=== PATIENT | female | born 1955 | race Caucasian/White ===

== ENCOUNTER 2016-11-04 14:56 | Observation (INO) ==
--- NOTE | 2016-11-04 15:10 | Emergency Department Note ---
Disposition Clinical Impression: Chest pain Qualifiers: Chest pain type: unspecified Qualified Code(s): R07.9 - Chest pain, unspecified TIA (transient ischemic attack) Qualifiers: Transient cerebral ischemia type: unspecified Qualified Code(s): G45.9 - Transient cerebral ischemic attack, unspecified Disposition: Admitted As Inpatient Condition: Fair Referrals: Arsenio Minaya DO [Primary Care Provider] - Forms: ED Satisfaction Letter Time of Disposition: 17:06 General Adult HPI - General Chief complaint: ED Headache Stated complaint: Headache Time Seen by Provider: 11/04/16 14:59 Source: patient, EMS Limitations: no limitations Nursing Notes Reviewed: Yes Vital Signs Reviewed: Yes - History of Present Illness HPI Narrative: 61-year-old female who was admitted with TIA-like symptoms couple weeks ago comes in with left-sided facial numbness and left-sided body numbness and chest pain and heaviness. Review of her previous MRI shows no acute findings. Those began 4 days ago. Her last known well was noon on 10/31/2016 Onset (ago): day(s) Location: chest Radiation: non-radiation Pain Scale: 10 Quality: aching, other (Pressure-like) Consistency: constant Improves with: nothing Worsens with: nothing Associated symptoms: Reports: confusion, chest pain - Related Data Home Medications Medication Instructions Recorded Confirmed Furosemide [Lasix] 20 mg PO QAM 11/15/15 10/20/16 Insulin ASPART [Novolog] 12 - 18 unit SQ TIDWM 11/15/15 10/20/16 Metformin [Glucophage] 1,000 mg PO DAILY 11/15/15 10/20/16 Albuterol Sulfate [Albuterol 2 puff IH Q4-6H PRN 09/01/16 10/20/16 Inhaler] Cholecalciferol (Vitamin D3) 1,200 unit PO DAILY 09/01/16 10/20/16 [Vitamin D3] Duloxetine HCl [Cymbalta] 60 mg PO DAILY 09/01/16 10/20/16 Insulin Glargine [Lantus] 40 unit SQ BID 09/01/16 10/20/16 Aspirin [Ecotrin] 325 mg PO DAILY 10/20/16 10/20/16 Clopidogrel Bisulfate [Plavix] 75 mg PO DAILY 10/20/16 10/20/16 Gabapentin [Neurontin] 300 mg PO TID 10/20/16 10/20/16 Previous Rx's Medication Instructions Recorded HYDROcodone/Acet 5/325 mg [Banco 1 tab PO Q4HR PRN #15 tablet 09/03/16 5-325 mg] Lisinopril [Zestril] 20 mg PO QAM #0 09/03/16 Atorvastatin [Lipitor] 40 mg PO HS #30 tablet 10/22/16 Hydrocodone/Acetaminophen [Banco 1 tab PO Q6H PRN 7 Days 10/22/16 5-325 Tablet] Allergies Allergy/AdvReac Type Severity Reaction Status Date / Time fluoxetine [From Prozac] AdvReac Gastrointestinal Verified 10/20/16 17:19 Upset naproxen [From Naprosyn] AdvReac Gastrointestinal Verified 10/20/16 17:19 Upset pioglitazone [From Actos] AdvReac Gastrointestinal Verified 10/20/16 17:19 Upset Constitutional: Denies: fever, chills, weakness, weight change Eyes: Denies: eye pain, eye discharge, vision change ENT ED: Denies: ear pain, throat pain, dental pain, hearing loss, epistaxis, congestion, dysphagia Cardiovascular: Reports: chest pain. Denies: palpitations, dyspnea on exertion , edema, syncope Respiratory: Denies: cough, dyspnea, wheezes, hemoptysis, stridor Gastrointestinal: Denies: abdominal pain, nausea, vomiting, diarrhea, constipation, hematemesis, melena, hematochezia Genitourinary: Denies: dysuria, frequency, hematuria, discharge Musculoskeletal: Denies: back pain, neck pain, arthralgia, myalgia Integumentary: Denies: rash, abrasion, lesions Neurological: Reports: numbness (Left side of her body), confusion. 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 - Social History Smoking Status: Former smoker Smokeless Tobacco Status: No Alcohol use: Reports: none Drug use: Reports: none Physical Exam - General Limitations: no limitations General appearance: alert, in no apparent distress - Head Head exam: atraumatic, normocephalic, normal inspection - Eye Eye exam: Present: normal appearance, PERRL, EOMI - ENT ENT exam: normal exam, normal oropharynx, mucous membranes moist - Neck Neck exam: Present: normal inspection, full ROM, trachea midline - Chest Chest inspection: Present: normal inspection, symmetric chest wall rise - Respiratory Respiratory exam: Present: normal lung sounds bilaterally - Cardiovascular Cardiovascular exam: Present: regular rate, normal rhythm, normal heart sounds - Abdominal Exam Abdominal exam: Present: soft, Non-Tender. Absent: tenderness, distention, guarding, rebound, rigidity - Extremities Exam Extremities exam: Present: normal inspection, full ROM. Absent: tenderness, pedal edema - Expanded Lower Extremity Exam Neurovascular/Tendon exam: Absent: motor deficit, sensory deficit, tendon deficit Gait: observed and normal - Back Exam Back exam: Present: normal inspection, full ROM. Absent: tenderness - Neurological Exam Neurological exam: Present: alert, oriented X3 - Psychiatric Psychiatric exam: Present: normal affect, normal mood - Skin Skin exam: Present: warm, dry, intact, normal color Course - Consultations Consultation #1: Discussed with Dr. Anand neurology he will see the patient in consultation. Time: 16:45 Consultation #2: Discussed with , admit. Time: 17:04 Vital Signs Temperature 97 F L 11/04/16 14:57 Pulse Rate 73 11/04/16 14:57 Respiratory Rate 18 11/04/16 14:57 Blood Pressure 143/92 11/04/16 14:57 O2 Sat by Pulse Oximetry 95 11/04/16 14:57 Temperature 97 F L 11/04/16 14:57 Pulse Rate 76 11/04/16 16:00 Respiratory Rate 16 11/04/16 16:00 Blood Pressure 139/83 11/04/16 16:00 O2 Sat by Pulse Oximetry 97 11/04/16 16:00 Oxygen Delivery Oxygen Delivery Room Air Medical Decision Making - Lab Data Lab results reviewed: Yes I reviewed the patient's lab results. Result diagrams: 11/04/16 15:22 11/04/16 15:22 Lab Results 11/04/16 11/04/16 11/04/16 Range/Units 15:22 15:22 15:22 WBC 9.3 (4.3-11.1) K/mcL RBC 5.22 H (3.82-4.97) M/mcL Hgb 15.7 H (11.5-15.4) g/dL Hct 45.6 H (35.3-44.9) % MCV 87.4 (83.0-100.0) fL MCH 30.1 (28.0-33.3) pg MCHC 34.4 (31.6-35.5) g/dL RDW 12.4 (11.5-14.5) % Plt Count 246 (140-400) K/mcL MPV 9.9 (9.4-12.4) fL Immature Gran % 0.4 (0-4) % Seg Neutrophils % 59.5 % Lymphocytes % 30.0 % Monocytes % 7.7 % Eosinophils % 2.0 % Basophils % 0.4 % Neutrophils # 5.5 (1.6-8.9) K/mcL Lymphocytes # 2.8 (0.6-4.6) K/mcL Monocytes # 0.7 (0.0-1.3) K/mcL Eosinophils # 0.2 (0.0-0.6) K/mcL Basophils # 0.0 (0.0-0.2) K/mcL PT 11.1 (9.4-12.1) Seconds INR 1.0 APTT 29.6 (26.0-36.0) Seconds Sodium 134 L (136-145) mEq/L Potassium 4.1 (3.5-4.5) mEq/L Chloride 96 L (98-109) mEq/L Carbon Dioxide 28 (19-29) mEq/L BUN 20 (7-20) mg/dL Creatinine 0.95 (0.57-1.11) mg/dL Est GFR ( Amer) > 60 (> 60) Est GFR (Non-Af Amer) 60 (> 60) BUN/Creatinine Ratio 21 (6-26) Glucose 345 H (70-99) mg/dL Calculated Osmolality 294 (280-300) Calcium 9.5 (8.6-10.8) mg/dL Troponin I (0-0.03) ng/mL 11/04/16 Range/Units 15:22 WBC (4.3-11.1) K/mcL RBC (3.82-4.97) M/mcL Hgb (11.5-15.4) g/dL Hct (35.3-44.9) % MCV (83.0-100.0) fL MCH (28.0-33.3) pg MCHC (31.6-35.5) g/dL RDW (11.5-14.5) % Plt Count (140-400) K/mcL MPV (9.4-12.4) fL Immature Gran % (0-4) % Seg Neutrophils % % Lymphocytes % % Monocytes % % Eosinophils % % Basophils % % Neutrophils # (1.6-8.9) K/mcL Lymphocytes # (0.6-4.6) K/mcL Monocytes # (0.0-1.3) K/mcL Eosinophils # (0.0-0.6) K/mcL Basophils # (0.0-0.2) K/mcL PT (9.4-12.1) Seconds INR APTT (26.0-36.0) Seconds Sodium (136-145) mEq/L Potassium (3.5-4.5) mEq/L Chloride (98-109) mEq/L Carbon Dioxide (19-29) mEq/L BUN (7-20) mg/dL Creatinine (0.57-1.11) mg/dL Est GFR ( Amer) (> 60) Est GFR (Non-Af Amer) (> 60) BUN/Creatinine Ratio (6-26) Glucose (70-99) mg/dL Calculated Osmolality (280-300) Calcium (8.6-10.8) mg/dL Troponin I 0.00 (0-0.03) ng/mL - Radiology Data Radiology results reviewed: Yes I reviewed the patient's radiology results. Head CT 11/04/16 15:04 IMPRESSION: No acute intracranial abnormality. D/ / Nicholas Ramon MD / Nicholas Ramon MD Interpreting Provider: Nicholas Ramon MD Chest X-Ray 11/04/16 15:05 IMPRESSION: No significant findings in the chest. D/ / Ez Frausto MD / Ez Frausto MD Interpreting Provider: Ez Frausto MD - EKG Data EKG #1 EKG attestation: Yes I reviewed and interpreted this EKG. EKG shows normal: sinus rhythm Rate: normal Rhythm: NSR Interpretation: no acute changes NIH Stroke Scale - Level of Consciousness LOC: Alert - LOC Questions LOC Questions: Answers both correctly - LOC Commands LOC Commands: Performs both correctly - Best Gaze Best Gaze: Normal - Visual Visual: No visual loss - Facial Palsy Facial Palsy: Normal - Motor Arms Motor Arm-Left: Drift, does NOT hit bed Motor Arm-Right: No drift for 10 seconds - Motor Legs Motor Leg-Left: No drift for 5 seconds Motor Leg-Right: No drift for 5 seconds - Limb Ataxia Limb Ataxia: Normal, No Ataxia - Sensory Sensory: Mild to moderate loss, "not as sharp" - Best Language Best Language: No aphasia - Dysarthria Dysarthria: Normal - Extinction and Inattention Extinction and Inattention: Normal - NIHSS Total Score NIHSS Total Score: 2
[2016-11-04 15:36] LABS: Basophils % 0.4 %; Eosinophils # 0.2 K/mcL (0.0-0.6); Hematocrit 45.6 % (35.3-44.9); Hemoglobin 15.7 g/dL (11.5-15.4); Immature Granulocytes % 0.4 % (0-4); Lymphocytes # 2.8 K/mcL (0.6-4.6); Mean Corpuscular HGB Conc 34.4 g/dL (31.6-35.5); Mean Corpuscular Hemoglobin 30.1 pg (28.0-33.3); Mean Corpuscular Volume 87.4 fL (83.0-100.0); Mean Platelet Volume 9.9 fL (9.4-12.4); Monocytes # 0.7 K/mcL (0.0-1.3); Monocytes % 7.7 %; Neutrophils # 5.5 K/mcL (1.6-8.9); Platelet Count 246 K/mcL (140-400); Prothrombin Time 11.1 Seconds (9.4-12.1); Red Blood Count 5.22 M/mcL (3.82-4.97); Red Cell Distribution Width 12.4 % (11.5-14.5); Segmented Neutrophils % 59.5 %
[2016-11-04 15:38] LABS: Activated Partial Thrombo Time 29.6 Seconds (26.0-36.0)
[2016-11-04 15:44] LABS: BUN/Creatinine Ratio 21 (6-26); Blood Urea Nitrogen 20 mg/dL (7-20); Calcium 9.5 mg/dL (8.6-10.8); Carbon Dioxide 28 mEq/L (19-29); Chloride 96 mEq/L (98-109); Glucose 345 mg/dL (70-99); Osmolality,Calculated 294 (280-300); Potassium 4.1 mEq/L (3.5-4.5); Sodium 134 mEq/L (136-145); eGFR For African Americans > 60 (> 60); eGFR For Non-African Americans 60 (> 60)
[2016-11-04] MEDS ORDERED: *HR* HYDROmorphone (PF) 1 MG/ML SYRINGE IVP ONE (17:25)
[2016-11-04] MEDS ORDERED: Ondansetron 4 MG/2 ML VIAL IVP ONE (17:25)
[2016-11-04] MEDS ORDERED: Acetaminophen 325 MG TABLET PO PRN (19:18)
[2016-11-04] MEDS ORDERED: Naloxone 0.4 MG/ML INJ IVP PRN (19:18)
[2016-11-04] MEDS ORDERED: D5% in Water 1,000 ML IV PRN (19:21)
[2016-11-04] MEDS ORDERED: Dextrose Gel 15 GM PO PRN ×2 (19:21)
[2016-11-04] MEDS ORDERED: *HR* Dextrose 50 % in Water (Syg) 50 ML SYRINGE IVP PRN (19:21)
[2016-11-04] MEDS: Insulin LISPRO 300 UNITS/3 ML VIAL SQ SCH (22:13)
[2016-11-04] MEDS: Insulin DETEMIR 100 UNIT/ML X5UNITS SQ SCH (22:14)
[2016-11-04] MEDS: Gabapentin 300 MG CAPSULE PO SCH (22:16)
--- NOTE | 2016-11-04 22:48 | Internal Med History&Physical ---
Date of Encounter: 11/04/16 Time of Encounter: 19:00 Assessment and Plan (1) Chest pain Current visit: Yes Status: Acute Rule out ACS. Continue telemetry monitoring and trend troponins. Chest pain could be related to emotional stress. Continue aspirin, Plavix and statin. Recent echocardiogram 2 weeks ago showed preserved ejection fraction, normal chamber sizes, mild left ventricular diastolic dysfunction, no gross valvular abnormalities. Patient also had a recent nuclear stress test done in September 2016, which is read as negative, however noted to attain only 1 metabolic equivalent with maximum HR of 65 during this study? To discuss with cardiology regarding the need for left heart catheterization. Qualifiers: Chest pain type: precordial chest pain Qualified Code(s): R07.2 - Precordial pain (2) Left-sided weakness Current visit: Yes Status: Acute Patient underwent recent stroke workup including CT head, MRI brain, MRA angiography of head and neck that was suggestive of chronic microvascular disease with no acute stroke. CT head done in the emergency room today showed no acute abnormality. Continue telemetry monitoring. Continue aspirin and Plavix and statin. Neurology has been consulted by emergency room physician, will follow-up recommendations. (3) Chronic respiratory failure Current visit: Yes Status: Chronic Patient is noted to be on chronic home oxygen due to underlying COPD. Qualifiers: Respiratory failure complication: hypoxia Qualified Code(s): J96.11 - Chronic respiratory failure with hypoxia (4) COPD (chronic obstructive pulmonary disease) Current visit: Yes Status: Chronic Not noted to be in acute exacerbation. Continue when necessary bronchodilators and supplemental oxygen. Qualifiers: COPD type: unspecified COPD Qualified Code(s): J44.9 - Chronic obstructive pulmonary disease, unspecified (5) Anxiety Current visit: Yes Status: Chronic (6) Cerebrovascular accident Current visit: Yes Status: Inactive Qualifiers: CVA mechanism: unspecified Qualified Code(s): I63.9 - Cerebral infarction, unspecified (7) Diabetes mellitus Current visit: Yes Status: Chronic Accu-Chek blood glucose monitoring with sliding scale insulin and basal insulin. Hemoglobin A1c last month is noted to be 11.5%, suggestive of uncontrolled diabetes. school vocational educator consult. Diabetic diet. 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 (8) HTN (hypertension) Current visit: Yes Status: Chronic Qualifiers: Hypertension type: essential hypertension Qualified Code(s): I10 - Essential (primary) hypertension (9) Hyperlipidemia Current visit: Yes Status: Chronic Qualifiers: Hyperlipidemia type: unspecified Qualified Code(s): E78.5 - Hyperlipidemia , unspecified (10) Obesity (BMI 30-39.9) Current visit: Yes Status: Chronic (11) Depression Current visit: Yes Status: Chronic Qualifiers: Depression Type: unspecified Qualified Code(s): F32.9 - Major depressive disorder, single episode, unspecified (12) Chronic low back pain Current visit: Yes Status: Chronic Qualifiers: Back pain laterality: midline Sciatica presence: without sciatica Qualified Code(s): M54.5 - Low back pain; G89.29 - Other chronic pain Internal Medicine - H&P: HPI Chief complaint: Chest pain, left-sided weakness Admitted From: Emergency Dept Plans for Post Hospital Care: Home History of present illness: Ms. Garay is a 61 year old female with multiple medical problems and recurrent admissions with TIA-like symptoms and chest pain, presents with complaints of retrosternal chest pain. Patient reports that her chest pain started last night , mostly in central chest, radiating to below her left breast and 2 between her shoulder blades, progressively getting worse today. She rates her pain 10/10, constant and reports being under a lot of emotional stress lately due to issues with her daughter. She also reports left-sided numbness and weakness in her hands and legs, unable to report the exact time of onset and reports continued symptoms. No slurred speech, facial droop, dysphagia. No shortness of breath, palpitations, orthopnea or leg swelling. She recently underwent nuclear stress test that was reported negative for ischemia. She has no outpatient cardiology follow-up but does have a neurology follow-up. Past Med Surg Social Fam HX - Past Medical History Medical history: COPD, CVA, diabetes, hyperlipidemia, hypertension, TIA Psychiatric history: anxiety, depression - Past Surgical History Surgical History: hip replacement (left), hysterectomy (Tubal ligation), orthopedic, other (Right arthroscopic knee surgery) - Social History Smoking Status: Former smoker (Quit smoking 10 years ago) Smokeless Tobacco Status: No Alcohol use: none (Quit alcohol 10 years ago) Drug use: none Occupational status: disabled Current living situation: Home, With Family Activity Level: Independent ambulation Recent Out of Country Travel Within the Last 8 Weeks: No Exposure or Possible Exposure to Illness During Travel: No - Family History Mother Living Status: Still Living Hx Family Cardiac Disorders: Yes Hx Family Endocrine Disorder: Yes (diabetes) Father Living Status: Hx Family Cardiac Disorders: Yes Hx Family Endocrine Disorder: Yes Internal Medicine - H&P: Meds Furosemide [Lasix] 20 mg PO QAM 11/15/15 [History] Insulin ASPART [Novolog] 12 - 18 unit SQ TIDWM 11/15/15 [History] Metformin [Glucophage] 1,000 mg PO BID 11/15/15 [History] Albuterol Sulfate [Albuterol Inhaler] 2 puff IH Q4-6H PRN 09/01/16 [History] Cholecalciferol (Vitamin D3) [Vitamin D3] 800 unit PO DAILY 09/01/16 [History] Duloxetine HCl [Cymbalta] 60 mg PO DAILY 09/01/16 [History] Insulin Glargine [Lantus] 30 unit SQ HS 09/01/16 [History] Aspirin [Ecotrin] 325 mg PO DAILY 10/20/16 [History] Clopidogrel Bisulfate [Plavix] 75 mg PO DAILY 10/20/16 [History] Gabapentin [Neurontin] 600 mg PO TID 10/20/16 [History] Acetaminophen w/Cod 300-30 mg [Tylenol w/Codeine #3] 1 tab PO Q6H PRN 11/04/16 [ History] Buspirone HCl [Buspar] 15 mg PO TID 11/04/16 [History] Escitalopram [Lexapro] 30 mg PO HS 11/04/16 [History] Insulin Glargine,Hum.rec.anlog [Lantus Solostar] 35 unit SQ QAM 11/04/16 [ History] Liraglutide [Victoza 2-Harish] 1.8 mg SQ DAILY 11/04/16 [History] Lisinopril [Zestril] 40 mg PO QAM 11/04/16 [History] Lovastatin 80 mg PO DAILY 11/04/16 [History] Methocarbamol [Robaxin] 500 mg PO Q8HR 11/04/16 [History] Omeprazole [PriLOSEC] 20 mg PO DAILY 11/04/16 [History] Trazodone HCl 100 mg PO HS 11/04/16 [History] Allergies fluoxetine [From Prozac] Adverse Reaction (Verified 10/20/16 17:19) Gastrointestinal Upset naproxen [From Naprosyn] Adverse Reaction (Verified 10/20/16 17:19) Gastrointestinal Upset pioglitazone [From Actos] Adverse Reaction (Verified 10/20/16 17:19) Gastrointestinal Upset All Systems PM: A 10-system review of systems was performed and is negative for pertinent findings except as documented above in the HPI. - Constitutional Constitutional: no chills, no fever(s), no night sweats - EENT Eyes: no change in vision, no discharge, no pain, no photophobia Ears: no ear discharge, no ear pain, no tinnitus Nose, mouth and throat: no dysphagia, no nasal discharge, no neck pain, no sore throat - Cardiovascular Cardiovascular ROS IM: chest pain, dyspnea on exertion - Respiratory Respiratory: no cough, no dyspnea, no wheezing, no excessive phlegm production - Gastrointestinal Gastrointestinal: no abdominal pain, no diarrhea, no hematemesis, no hematochezia, no melena, no nausea, no vomiting - Genitourinary Genitourinary: no change in urinary stream, no dysuria, no flank pain, no hematuria - Musculoskeletal Musculoskeletal ROS IM: no numbness, no tingling - Integumentary Integumentary IM: no rash, no unusual bruising - Neurological Neurological ROS: disequilibrium, focal weakness, paresthesias - Psychiatric Psychiatric: anxiety, depression, irritability - Hematologic/Lymphatic Hematologic/Lymphatic: no easy bruising - Constitutional Vitals: Temp Pulse Resp BP Pulse Ox 97.9 F 74 16 139/83 93 L 11/04/16 19:19 11/04/16 19:19 11/04/16 19:19 11/04/16 19:19 11/04/16 19:19 General appearance: Present: A&O X 3, answers questions appropriately - Head Head exam: Present: atraumatic, normocephalic - Neck Neck exam general surgery: Present: supple, trachea midline. Absent: lymphadenopathy - Respiratory Respiratory exam: Present: CTAB. Absent: accessory muscle use, rales, rhonchi, wheezes - Cardiovascular Cardiovascular exam: Present: RRR, +S1, +S2. Absent: diastolic murmur, gallop, rubs, systolic murmur - GI/Abdominal GI/Abdominal exam: Present: normal bowel sounds, soft, no peritoneal signs. Absent: distended, tenderness - Extremities Exam Extremities exam: Present: warm, radial pulses palpable and symetrical. Absent : calf tenderness, cyanotic, pedal edema - Neurological Exam Neurological exam: Present: CN II-XII intact, oriented X3, no focal deficits, strengths equal and symetr throughout (4/5 motor power in left upper and lower extremities). Absent: pronater drift, facial droop, speech deficit - Skin Skin exam: Present: dry, intact Internal Med - H&P Results - Labs CBC & Chem 7: 11/05/16 01:03 11/05/16 01:03 Labs: Cardiac Enzymes 11/04/16 Range/Units 20:28 Troponin I 0.00 (0-0.03) ng/mL
[2016-11-04] MEDS ORDERED: Ondansetron 4 MG/2 ML VIAL IVP PRN (23:37)
[2016-11-05 01:40] LABS: Basophils % 0.5 %; Eosinophils # 0.2 K/mcL (0.0-0.6); Eosinophils % 2.4 %; Hematocrit 45.2 % (35.3-44.9); Hemoglobin 15.1 g/dL (11.5-15.4); Immature Granulocytes % 0.5 % (0-4); Lymphocytes # 2.9 K/mcL (0.6-4.6); Mean Corpuscular HGB Conc 33.4 g/dL (31.6-35.5); Mean Corpuscular Hemoglobin 29.3 pg (28.0-33.3); Mean Corpuscular Volume 87.6 fL (83.0-100.0); Mean Platelet Volume 10.1 fL (9.4-12.4); Monocytes # 0.7 K/mcL (0.0-1.3); Monocytes % 7.9 %; Neutrophils # 4.9 K/mcL (1.6-8.9); Platelet Count 238 K/mcL (140-400); Red Blood Count 5.16 M/mcL (3.82-4.97); Red Cell Distribution Width 12.2 % (11.5-14.5); Segmented Neutrophils % 55.7 %
[2016-11-05 01:55] LABS: BUN/Creatinine Ratio 22 (6-26); Blood Urea Nitrogen 18 mg/dL (7-20); Calcium 9.6 mg/dL (8.6-10.8); Carbon Dioxide 29 mEq/L (19-29); Chloride 98 mEq/L (98-109); Chol/HDL Ratio 5.6 (0-4.9); Cholesterol 175 mg/dL (< 200); Glucose 314 mg/dL (70-99); HDL Cholesterol 31 mg/dL (40-59); LDL Cholesterol,Calculated 110 mg/dL (0-99); Osmolality,Calculated 296 (280-300); Potassium 4.4 mEq/L (3.5-4.5); Sodium 136 mEq/L (136-145); Triglycerides 171 mg/dL (< 150); eGFR For African Americans > 60 (> 60); eGFR For Non-African Americans > 60 (> 60)
[2016-11-05] MEDS: *HR* HYDROcodone/Acet 5/325 mg TABLET PO PRN (04:32)
[2016-11-05] MEDS: Gabapentin 300 MG CAPSULE PO SCH ×3 (07:50→21:13)
[2016-11-05] MEDS: Insulin LISPRO 300 UNITS/3 ML VIAL SQ SCH ×4 (07:50→21:11)
[2016-11-05] MEDS: Aspirin Enteric Coated 325 MG Tablet PO SCH (07:50)
[2016-11-05] MEDS: Insulin DETEMIR 100 UNIT/ML X5UNITS SQ SCH ×2 (07:55→21:11)
--- NOTE | 2016-11-05 09:06 | Internal Med Progress Note ---
Date of Encounter: 11/05/16 Time of Encounter: 08:45 - Assessment and plan (1) Atypical chest pain Current Visit: Yes Status: Acute (2) Depression Current Visit: Yes Status: Chronic Assessment and plan: Add remeron at the time and BuSpar to help with augmentation Qualifiers: Depression Type: unspecified Qualified Code(s): F32.9 - Major depressive disorder, single episode, unspecified (3) TIA (transient ischemic attack) Current Visit: Yes Status: Acute Assessment and plan: Neurology on board, continue aspirin Plavix and statin (4) Acute stress reaction Current Visit: No Status: Acute Assessment and plan: Need further adjustment of her psych medication follow-up as an outpatient with psychiatry monitoring of her psych medication - Time Spent With Patient 25 - 35 minutes - Subjective Interval history: Patient is still complaining of left-sided weakness and pain. Patient stated that she has had recurrent episode of left sided weakness and pain happened usually when she had an anxiety episode. Patient stated that this time is worse than last time. Patient denies any fever or chills. Patient denies any visual changes.. Patient need health care assistant was walking. Patient stated she is very stressed out lately. She is feeding the depression medication is not working for her - Constitutional Vitals: Temp Pulse Resp BP Pulse Ox 97.9 F 70 16 145/80 92 L 11/05/16 07:06 11/05/16 07:06 11/05/16 07:06 11/05/16 07:06 11/05/16 07:06 General appearance: Present: A&O X 3, answers questions appropriately - Head Head exam: Present: atraumatic, normocephalic - Eye Eye exam: Present: conjuntiva pink, sclera anicteric - Neck Neck exam general surgery: Present: supple, trachea midline. Absent: lymphadenopathy - Respiratory Respiratory exam: Present: CTAB. Absent: accessory muscle use, rales, rhonchi, wheezes - Cardiovascular Cardiovascular exam: Present: RRR, +S1, +S2. Absent: diastolic murmur, gallop, rubs, systolic murmur - GI/Abdominal GI/Abdominal exam: Present: normal bowel sounds, soft, no peritoneal signs. Absent: distended, tenderness - Extremities Exam Extremities exam: Present: warm, radial pulses palpable and symetrical. Absent : calf tenderness, cyanotic, pedal edema - Neurological Exam Neurological exam: Present: CN II-XII intact (Motor 5 out of 5 right upper and right lower extremity 4 out of 5 left upper and left lower extremities), oriented X3. Absent: pronater drift, facial droop, speech deficit - Skin Skin exam: Present: dry, intact Internal Medicine: Result - Labs CBC & Chem 7: 11/05/16 01:03 11/05/16 01:03 Labs: Short CBC 11/05/16 Range/Units 01:03 WBC 8.7 (4.3-11.1) K/mcL Hgb 15.1 (11.5-15.4) g/dL Hct 45.2 H (35.3-44.9) % Plt Count 238 (140-400) K/mcL Neutrophils # 4.9 (1.6-8.9) K/mcL BMP 11/05/16 01:03 Sodium 136 Potassium 4.4 Chloride 98 Carbon Dioxide 29 BUN 18 Creatinine 0.83 Glucose 314 H Calcium 9.6 Cardiac Enzymes 11/04/16 11/05/16 11/05/16 Range/Units 20:28 01:03 07:31 Troponin I 0.00 0.00 0.00 (0-0.03) ng/mL - ABG Interpretation ABG results: PT/INR, D-dimer PT 11.1 Seconds (9.4-12.1) 11/04/16 15:22 Consult Discharge Plan - Plan Referrals: Arsenio Minaya DO [Primary Care Provider] -
--- NOTE | 2016-11-05 09:50 | Neurology - Consult Note ---
Date of Encounter: 11/05/16 Time of Encounter: 09:48 Assessment and Plan (1) Acute stress reaction Current Visit: No Status: Acute I find no evidence here to support any evidence of acute right hemispheric dysfunction. She had a complete and comprehensive workup at the time of her last hospitalization which included MRI and MRA scans. I believe that the weakness of the left upper and left lower extremities are due to giveaway, and other mechanical and myofascial etiologies. No evidence of an acute infarct is present. I would recommend ongoing PT and OT. I would maintain aspirin and ongoing management of her stroke risk factors. I will reevaluate her at your request. The documentation in the history of HPI and plan were at least partially created by [employer] voice recognition technology by Dr. Anand. Errors in grammar, wording or other phrases may exist. If errors are found after the documentation signed, they will be addressed individually in the addendum section of this document when appropriate. History of Present Illness HPI: Ms. Garay is a 61 year old female who is being seen for neurologic consultation secondary to left upper and lower extremity weakness with pain in the chest radiating into the left upper extremity. She began by telling me that she has been under tremendous amount of stress lately. She was also admitted for this very same problem about 3 weeks or so ago and was seen by my associate Dr. Alonzo on 10/22/2016. She had a very extensive workup at that time including MRI/MRA scan of the brain which was negative for any acute infarct. Scattered white matter changes were identified. She does have stroke risk factors. CT scan of the brain was completed in the ED at the time of admission and was unrevealing. She still complains of left upper and left lower extremity pain and weakness. Past Med Surg Social Fam HX - Past Medical History Medical history: COPD, CVA, diabetes, hyperlipidemia, hypertension, TIA Psychiatric history: anxiety, depression - Past Surgical History Surgical History: hip replacement, hysterectomy - Social History Smoking Status: Former smoker Smokeless Tobacco Status: No Alcohol use: none Drug use: none - Family History Mother Living Status: Still Living Hx Family Cardiac Disorders: Yes Hx Family Endocrine Disorder: Yes (diabetes) Father Living Status: Hx Family Cardiac Disorders: Yes Hx Family Endocrine Disorder: Yes Medications and Allergies Furosemide [Lasix] 20 mg PO QAM 11/15/15 [History] Insulin ASPART [Novolog] 12 - 18 unit SQ TIDWM 11/15/15 [History] Metformin [Glucophage] 1,000 mg PO BID 11/15/15 [History] Albuterol Sulfate [Albuterol Inhaler] 2 puff IH Q4-6H PRN 09/01/16 [History] Cholecalciferol (Vitamin D3) [Vitamin D3] 800 unit PO DAILY 09/01/16 [History] Duloxetine HCl [Cymbalta] 60 mg PO DAILY 09/01/16 [History] Insulin Glargine [Lantus] 30 unit SQ HS 09/01/16 [History] Aspirin [Ecotrin] 325 mg PO DAILY 10/20/16 [History] Clopidogrel Bisulfate [Plavix] 75 mg PO DAILY 10/20/16 [History] Gabapentin [Neurontin] 600 mg PO TID 10/20/16 [History] Acetaminophen w/Cod 300-30 mg [Tylenol w/Codeine #3] 1 tab PO Q6H PRN 11/04/16 [ History] Buspirone HCl [Buspar] 15 mg PO TID 11/04/16 [History] Escitalopram [Lexapro] 30 mg PO HS 11/04/16 [History] Insulin Glargine,Hum.rec.anlog [Lantus Solostar] 35 unit SQ QAM 11/04/16 [ History] Liraglutide [Victoza 2-Harish] 1.8 mg SQ DAILY 11/04/16 [History] Lisinopril [Zestril] 40 mg PO QAM 11/04/16 [History] Lovastatin 80 mg PO DAILY 11/04/16 [History] Methocarbamol [Robaxin] 500 mg PO Q8HR 11/04/16 [History] Omeprazole [PriLOSEC] 20 mg PO DAILY 11/04/16 [History] Trazodone HCl 100 mg PO HS 11/04/16 [History] Allergies fluoxetine [From Prozac] Adverse Reaction (Verified 10/20/16 17:19) Gastrointestinal Upset naproxen [From Naprosyn] Adverse Reaction (Verified 10/20/16 17:19) Gastrointestinal Upset pioglitazone [From Actos] Adverse Reaction (Verified 10/20/16 17:19) Gastrointestinal Upset All Systems: A 10-system review of systems was performed and is negative for pertinent findings except as documented above in the HPI. Review of Systems: 10 point review of systems is consistent with the history of present illness and otherwise negative. Physical Examination - Vital Signs Vital Signs: Initial Vital Signs Temp Pulse Resp BP Pulse Ox 97 F L 73 18 143/92 95 11/04/16 14:57 11/04/16 14:57 11/04/16 14:57 11/04/16 14:57 11/04/16 14:57 - Neurologic Sensorimotor examination: other (There is decreased sensation to light touch and pinprick distally and symmetrically. No hemihypesthesia is present.) Detailed motor examination: other (She has full power of the right upper and right lower extremities. There is diffuse give way weakness of the left upper and left lower extremities. She has normal bulk and tone of all 4 extremities. No involuntary movements or atrophy are present.) Reflex and gait examination: other (Deep tendon reflexes are diminished throughout.) Mental Status Examination: awake, alert, oriented to person, oriented to place, oriented to time, follows commands appropriately, answers questions appropriately, no agnosia, no aphasia, no aproxia Cranial nerve examination: PERRL, EOMI, visual bowman intact, corneal reflexes brisk symmetrically, sensory to face intact, mastication intact, no dysarthria, hearing is intact symmetrically, soft palate elevates bilaterally upon phonation , tongue protrudes midline Cranial Nerve Exam: facial nerve palsy: 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 ), facial droop: Left Cerebellar examination: no dysmetria, performs finger to nose and heel to guajardo symmetrically without ataxia, no truncal ataxia, no difficulty with rapid alternating movements Results - Laboratory Findings CBC and BMP: 11/05/16 01:03 11/05/16 01:03 Abnormal lab findings: Abnormal lab results RBC 5.16 M/mcL (3.82-4.97) H 11/05/16 01:03 Hct 45.2 % (35.3-44.9) H 11/05/16 01:03 Glucose 314 mg/dL (70-99) H 11/05/16 01:03 POC Glucose 212 (58-89) H 11/04/16 21:19 Triglycerides 171 mg/dL (< 150) H 11/05/16 01:03 LDL Cholesterol, Calc 110 mg/dL (0-99) H 11/05/16 01:03 VLDL Cholesterol, Calc 34 mg/dL (< 31) H 11/05/16 01:03 HDL Cholesterol 31 mg/dL (40-59) L 11/05/16 01:03 Cholesterol/HDL Ratio 5.6 (0-4.9) H 11/05/16 01:03 Consult Discharge Plan - Plan Referrals: Arsenio Minaya DO [Primary Care Provider] -
[2016-11-05] MEDS: Cyanocobalamin (B-12) 1,000 MCG TABLET PO SCH (09:51)
--- NOTE | 2016-11-05 11:20 | Electrocardiograph Report ---
[facility] Test Date: 2016-11-04 Pat Name: Bina Garay Department: 105 Room: 3B45 Gender: F [employer]: JAZ : 1955 Requested By: Jemal Lane Order Number: [id number] Reading MD: Ron Hwang MD Measurements Intervals [place] Rate: 69 P: 33 MI: 141 QRS: 51 QRSD: 101 T: 82 QT: 438 QTc: 457 Interpretive Statements SINUS RHYTHM WITH SINUS ARRHYTHMIA Electronically Signed On 11-05-16 11:19:40 EST by Ron Hwang MD
[2016-11-05] MEDS: Acetaminophen 325 MG TABLET PO SCH ×2 (16:32→21:20)
--- NOTE | 2016-11-05 18:04 | Physician Discharge Referral ---
ExtendedCare Referral Info Institutional Level of Care: Skilled - Diagnosis (1) Atypical chest pain Priority: Primary Status: Acute (2) Depression Status: Chronic (3) TIA (transient ischemic attack) Priority: Primary Status: Acute (4) Acute stress reaction Priority: Primary Status: Acute (5) Left-sided muscle weakness Status: Acute - Transfer Medications Home Medications: Furosemide [Lasix] 20 mg PO QAM 11/15/15 [History] Insulin ASPART [Novolog] 12 - 18 unit SQ TIDWM 11/15/15 [History] Metformin [Glucophage] 1,000 mg PO BID 11/15/15 [History] Albuterol Sulfate [Albuterol Inhaler] 2 puff IH Q4-6H PRN 09/01/16 [History] Cholecalciferol (Vitamin D3) [Vitamin D3] 800 unit PO DAILY 09/01/16 [History] Duloxetine HCl [Cymbalta] 60 mg PO DAILY 09/01/16 [History] Insulin Glargine [Lantus] 30 unit SQ HS 09/01/16 [History] Aspirin [Ecotrin] 325 mg PO DAILY 10/20/16 [History] Clopidogrel Bisulfate [Plavix] 75 mg PO DAILY 10/20/16 [History] Gabapentin [Neurontin] 600 mg PO TID 10/20/16 [History] Acetaminophen w/Cod 300-30 mg [Tylenol w/Codeine #3] 1 tab PO Q6H PRN 11/04/16 [ History] Buspirone HCl [Buspar] 15 mg PO TID 11/04/16 [History] Escitalopram [Lexapro] 30 mg PO HS 11/04/16 [History] Insulin Glargine,Hum.rec.anlog [Lantus Solostar] 35 unit SQ QAM 11/04/16 [ History] Liraglutide [Victoza 2-Harish] 1.8 mg SQ DAILY 11/04/16 [History] Lisinopril [Zestril] 40 mg PO QAM 11/04/16 [History] Lovastatin 80 mg PO DAILY 11/04/16 [History] Methocarbamol [Robaxin] 500 mg PO Q8HR 11/04/16 [History] Omeprazole [PriLOSEC] 20 mg PO DAILY 11/04/16 [History] Trazodone HCl 100 mg PO HS 11/04/16 [History] Allergies/Adverse Reactions: Allergies fluoxetine [From Prozac] Adverse Reaction (Verified 10/20/16 17:19) Gastrointestinal Upset naproxen [From Naprosyn] Adverse Reaction (Verified 10/20/16 17:19) Gastrointestinal Upset pioglitazone [From Actos] Adverse Reaction (Verified 10/20/16 17:19) Gastrointestinal Upset - Respiratory Orders Smoking Cessation: Smoking cessation has been advised. For more information, call the [place] Tobacco Quit Line at 9-379-AYWV-NOW. - Mobility Orders Ambulate - Rehabiliation Orders Rehab Potential: Good - Diet Orders Cardiac CERTIFICATION: I certify that the transfer of the above named patient to an Extended Care Facility is necessary for the continuing treatment of the diagnosis listed. The above information is true and accurate reflection of patient's current condition. Based on staff poor social support at home . Patient is feeling more depressed with her progressive weakness Confidential - Redisclosure prohibited without a patient's written consent.
[2016-11-05] MEDS ORDERED: Mirtazapine 15 MG TABLET PO SCH (21:00)
[2016-11-06] MEDS: *HR* HYDROcodone/Acet 5/325 mg TABLET PO PRN (05:56)
[2016-11-06] MEDS: Insulin LISPRO 300 UNITS/3 ML VIAL SQ SCH ×2 (08:13→13:00)
[2016-11-06] MEDS: Aspirin Enteric Coated 325 MG Tablet PO SCH (08:13)
[2016-11-06] MEDS: Acetaminophen 325 MG TABLET PO SCH (08:13)
[2016-11-06] MEDS: Gabapentin 300 MG CAPSULE PO SCH (08:13)
[2016-11-06] MEDS: Insulin DETEMIR 100 UNIT/ML X5UNITS SQ SCH (08:15)
[2016-11-06] MEDS: Cyanocobalamin (B-12) 1,000 MCG TABLET PO SCH (08:15)
[2016-11-06 11:05] VITALS: BP 145/78
--- NOTE | 2016-11-06 12:34 | Discharge Summary ---
Date of Encounter: 11/06/16 Time of Encounter: 12:32 - Discharge Diagnosis (1) Atypical chest pain Priority: Primary Status: Acute (2) Depression Priority: Secondary Status: Chronic Qualifiers: Depression Type: unspecified Qualified Code(s): F32.9 - Major depressive disorder, single episode, unspecified (3) Acute stress reaction Priority: Primary Status: Acute (4) Left-sided weakness Priority: Primary Status: Acute - Discharge Medications Prescriptions: Acetaminophen [Tylenol] 500 mg PO BID #60 tablet Atorvastatin [Lipitor] 60 mg PO HS #30 tablet Buspirone HCl [Buspar] 7.5 mg PO BID #60 tablet Cyanocobalamin (B-12) [Vitamin B12] 1,000 mcg PO DAILY #90 tablet Duloxetine [Cymbalta] 30 mg PO DAILY #30 capsule. Ergocalciferol (VITAMIN D2) [Drisdol (50,000 Unit)] 50,000 unit PO We@0900 #20 capsule Mirtazapine [Remeron] 7.5 mg PO HS #30 tablet Home Medications: Furosemide [Lasix] 20 mg PO QAM 11/15/15 [History] Insulin ASPART [Novolog] 12 - 18 unit SQ TIDWM 11/15/15 [History] Metformin [Glucophage] 1,000 mg PO BID 11/15/15 [History] Albuterol Sulfate [Albuterol Inhaler] 2 puff IH Q4-6H PRN 09/01/16 [History] Aspirin [Ecotrin] 325 mg PO DAILY 10/20/16 [History] Clopidogrel Bisulfate [Plavix] 75 mg PO DAILY 10/20/16 [History] Gabapentin [Neurontin] 600 mg PO TID 10/20/16 [History] Acetaminophen w/Cod 300-30 mg [Tylenol w/Codeine #3] 1 tab PO Q6H PRN 11/04/16 [ History] Buspirone HCl [Buspar] 15 mg PO TID 11/04/16 [History] Insulin Glargine,Hum.rec.anlog [Lantus Solostar] 35 unit SQ QAM 11/04/16 [ History] Liraglutide [Victoza 2-Harish] 1.8 mg SQ DAILY 11/04/16 [History] Lisinopril [Zestril] 40 mg PO QAM 11/04/16 [History] Lovastatin 80 mg PO DAILY 11/04/16 [History] Methocarbamol [Robaxin] 500 mg PO Q8HR 11/04/16 [History] Omeprazole [PriLOSEC] 20 mg PO DAILY 11/04/16 [History] Acetaminophen [Tylenol] 500 mg PO BID #60 tablet 11/06/16 [Rx] Atorvastatin [Lipitor] 60 mg PO HS #30 tablet 11/06/16 [Rx] Buspirone HCl [Buspar] 7.5 mg PO BID #60 tablet 11/06/16 [Rx] Cyanocobalamin (B-12) [Vitamin B12] 1,000 mcg PO DAILY #90 tablet 11/06/16 [Rx] Duloxetine [Cymbalta] 30 mg PO DAILY #30 capsule. 11/06/16 [Rx] Ergocalciferol (VITAMIN D2) [Drisdol (50,000 Unit)] 50,000 unit PO We@0900 #20 capsule 11/06/16 [Rx] Insulin Glargine [Lantus] 40 unit SQ HS #0 vial 11/06/16 [Rx] Mirtazapine [Remeron] 7.5 mg PO HS #30 tablet 11/06/16 [Rx] Allergies/Adverse Reactions: Allergies fluoxetine [From Prozac] Adverse Reaction (Verified 10/20/16 17:19) Gastrointestinal Upset naproxen [From Naprosyn] Adverse Reaction (Verified 10/20/16 17:19) Gastrointestinal Upset pioglitazone [From Actos] Adverse Reaction (Verified 10/20/16 17:19) Gastrointestinal Upset Date of admission: 11/04/16 17:13 Primary care physician: Arsenio Minaya DO Consults: 11/04/16 19:20 Consult to Neurology [CONS] Routine Consulting Provider: Neurology [facility] Reason for Consult: Left-sided weakness Call Completed: Yes 11/05/16 06:25 Consult to Spa Technician [CONS] Routine Reason for SW Consult: Patient stated she wants to go to [facility] at discharge. 11/05/16 08:33 Consult to Occupational Therapy [CONS] Routine Comment: Evaluate, develop and implement POC Consult to Physical Therapy [CONS] Routine Comment: Evaluate, develop and implement POC Discharging clinician: Nadine Rodriguez - Patient Status Disposition: Transfer SNF Condition: Fair Overall status at discharge: patient is progressing back to baseline - Discharge Instructions Instructions: Chest Pain (DC), Diabetes Mellitus Type 2 in Adults (DC), Chronic Obstructive Pulmonary Disease (DC), Chronic Hypertension (DC), Anxiety ( DC) Follow Up With: Arsenio Minaya DO [Primary Care Provider] - (Follow up with psychiatry in 1 week ) - Diet and Activity Activity: ambulate only with your walker Diet: diabetic diet Hospital course: Ms. Garay is a 61 year old female with multiple medical problems and recurrent admissions with TIA-like symptoms and chest pain, presents with complaints of atypical chest pain. Patient reports that her chest pain started last night prior to admission, mostly in central chest, radiating to below her left breast progressively getting worse . She rates her pain 10/10 associated with left- sided weakness. Patient states that this happen usually when she goes under stress. Patient stated her left-sided weakness is worse compared to last time . Patient is feeling her current depression medication is not helping at all. She also reports left-sided numbness and weakness in her hands and legs, unable to report the exact time of onset and reports continued symptoms. No slurred speech, facial droop, dysphagia. No shortness of breath, palpitations, orthopnea or leg swelling. She recently underwent nuclear stress test that was reported negative for ischemia. She has no outpatient cardiology follow up .She was also admitted for same problem about 3 weeks or so ago and was seen by Dr. Alonzo on 10/22/2016. She had a very extensive workup at that time including MRI/MRA scan of the brain which was negative for any acute infarct. Scattered white matter changes were identified. She does have stroke risk factors. CT scan of the brain was completed in the ED at the time of admission and was unrevealing. She was complaining of left upper and left lower extremity pain and weakness. Neurology was consulted. He stated ,He cannot find any evidence to support any evidence of acute right hemispheric dysfunction. He believe that the weakness of the left upper and left lower extremities are due to giveaway, and other mechanical and myofascial etiologies. No evidence of an acute infarct is present. He recommended ongoing PT and OT. Continue aspirin, statin was increased. I had long discussion with patient about her depression medication. With her poor sleep at night remeron was added to help with her sleep ,appetite and depression in addition to BuSpar to help as an augmentation agent, medication adjusted. Patient next day status that medication is helping a lot she had a very good night's sleep she is feeling better. With her deconditioning ,Poor social support and recommendation of physical therapy patient discharged to [facility] for further rehabilitation. Chest pain resolved . Cardiac exam negative no acute EKG changes - Time Spent with Patient Total time spent providing and/or coordinating discharge services: Less than 30 minutes - Constitutional Vitals: Temp Pulse Resp BP Pulse Ox 98.1 F 74 15 145/78 94 L 11/06/16 11:03 11/06/16 11:03 11/06/16 11:03 11/06/16 11:03 11/06/16 11:03 General appearance: Present: A&O X 3, answers questions appropriately - Head Head exam: Present: atraumatic, normocephalic - Neck Neck exam general surgery: Present: supple, trachea midline. Absent: lymphadenopathy - Respiratory Respiratory exam: Present: CTAB. Absent: accessory muscle use, rales, rhonchi, wheezes - Cardiovascular Cardiovascular exam: Present: RRR, +S1, +S2. Absent: diastolic murmur, gallop, rubs, systolic murmur - Extremities Exam Extremities exam: Present: warm, radial pulses palpable and symetrical. Absent : calf tenderness, cyanotic, pedal edema - Neurological Exam Neurological exam: Present: CN II-XII intact (Weakness left upper and lower extremities 4 out of 5 other neurologic exam is unremarkable), oriented X3. Absent: pronater drift, facial droop, speech deficit
== END 2016-11-06 15:36 ==
LOC: EMEROO 14:56 → 3BNU 14:56
PROVIDERS: ADMIT Internal Medicine; ATTEND Nurse Practitioner Family

== ENCOUNTER 2017-02-25 15:40 | Observation (INO) ==
--- NOTE | 2017-02-25 16:21 | Emergency Department Note ---
Disposition Clinical Impression: Hyperglycemia Chest pain Qualifiers: Chest pain type: unspecified Qualified Code(s): R07.9 - Chest pain, unspecified Disposition: Admitted As Inpatient Condition: Fair Chest Pain HPI - General Chief Complaint: ED Chest Pain Stated Complaint: Chest Pain Time Seen by Provider: 02/25/17 15:55 Source: patient, EMS Mode of arrival: EMS Limitations: no limitations Vital Signs Reviewed: Yes Nursing Notes Reviewed: Yes - History of Present Illness HPI Narrative: 61-year-old female history of hypertension, CVA on plavix, diabetes and anxiety presents for evaluation of retrosternal chest pain. Noted to occur earlier today without exertion. Radiation into her right back. Also notes numbness in tingling down her left arm. Patient denies history of heart attacks the past. Patient states that she is under significant stress at home with her landlord. Patient reports some shortness of breath. No cough or fever. Denies any nausea or vomiting. Denies any aggravating or alleviating symptoms. Patient states that the pain started approximately 3 hours prior to arrival. Severity scale (1-10): 10 - Related Data Home Medications Medication Instructions Recorded Confirmed Furosemide [Lasix] 20 mg PO QAM 11/15/15 02/25/17 Insulin ASPART [Novolog] 12 - 18 unit SQ TIDWM 11/15/15 02/25/17 Metformin [Glucophage] 1,000 mg PO BID 11/15/15 02/25/17 Albuterol Sulfate [Albuterol 2 puff IH Q4-6H PRN 09/01/16 02/25/17 Inhaler] Aspirin [Ecotrin] 325 mg PO DAILY 10/20/16 02/25/17 Gabapentin [Neurontin] 600 mg PO TID 10/20/16 02/25/17 Liraglutide [Victoza 2-Harish] 1.8 mg SQ DAILY 11/04/16 02/25/17 Lisinopril [Zestril] 40 mg PO QAM 11/04/16 02/25/17 Budesonide/Formoterol 80/4.5 2 puff IH BIDR 02/25/17 02/25/17 [Symbicort 80/4.5] Duloxetine [Cymbalta] 60 mg PO DAILY 02/25/17 02/25/17 Insulin Glargine [Lantus] 35 unit SQ QAM 02/25/17 02/25/17 Previous Rx's Medication Instructions Recorded Atorvastatin [Lipitor] 60 mg PO HS #30 tablet 11/06/16 Insulin Glargine [Lantus] 40 unit SQ HS #0 vial 11/06/16 Allergies Allergy/AdvReac Type Severity Reaction Status Date / Time fluoxetine [From Prozac] AdvReac Gastrointestinal Verified 10/20/16 17:19 Upset naproxen [From Naprosyn] AdvReac Gastrointestinal Verified 10/20/16 17:19 Upset pioglitazone [From Actos] AdvReac Gastrointestinal Verified 10/20/16 17:19 Upset All systems ED: reviewed and negative except as stated. Constitutional: Reports: as per HPI. Denies: fever Eyes: Reports: as per HPI ENT ED: Reports: as per HPI Cardiovascular: Reports: as per HPI, chest pain. Denies: palpitations Respiratory: Reports: as per HPI Gastrointestinal: Reports: as per HPI. Denies: abdominal pain, nausea Genitourinary: Reports: as per HPI Musculoskeletal: Reports: as per HPI, back pain Integumentary: Reports: as per HPI Neurological: Reports: as per HPI, headache Psychiatric: Reports: as per HPI, anxiety Endocrine: Reports: as per HPI Hematological/Lymphatic: Reports: as per HPI Chest Pain PMH - Past Medical History Medical history: Reports: COPD, CVA, diabetes, hyperlipidemia, hypertension, TIA Surgical history: Reports: hip replacement (left), hysterectomy (Tubal ligation) , orthopedic, other (Right arthroscopic knee surgery) Psychiatric history: Reports: anxiety, depression 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 FUSER history: Reports: bilateral tubal ligation - Social History Smoking Status: Former smoker Alcohol use: Reports: none Drug use: Reports: none Physical Exam - General Limitations: no limitations General appearance: alert, in no apparent distress - Head Head exam: atraumatic, normocephalic, normal inspection - Eye Eye exam: Present: normal appearance, EOMI - ENT ENT exam: normal exam, mucous membranes moist - Neck Neck exam: Present: normal inspection, trachea midline - Chest Chest inspection: Present: normal inspection, symmetric chest wall rise - Respiratory Respiratory exam: Present: normal lung sounds bilaterally. Absent: respiratory distress - Cardiovascular Cardiovascular exam: Present: regular rate, normal rhythm - Abdominal Exam Abdominal exam: Present: soft, Non-Tender - Extremities Exam Extremities exam: Present: normal inspection. Absent: pedal edema - Back Exam Back exam: Present: normal inspection - Neurological Exam Neurological exam: Present: alert, oriented X3, CN II-XII intact - Expanded Neurological Exam Patient oriented to: Present: person, place, time Speech: Present: fluid speech Motor strength - LUE: 5/5 Motor strength - RUE: 5/5 Motor strength - LLE: 5/5 Motor strength - RLE: 5/5 - Skin Skin exam: Present: warm, dry, intact, normal color Course Course Narrative: Patient seen and examined. Patient in no acute distress. Patient does appear anxious. Patient does have a history of anxiety. Patient has not had known cardiac history. Patient will be evaluated with troponin, EKG, chest x-ray as well as basic lab work. Patient received aspirin in route via EMS. Patient also has a headache likely related to stress. Patient has a nonfocal neurologic exam. Patient does not appear to be in acute distress. Patient will get Tylenol to help with headache. - Reevaluation(s) Reevaluation #1: Patient seen and examined. Patient's chest pain was resolved with the nitroglycerin. Patient's resting more comfortably. Time: 17:21 Vital Signs Temperature 98.2 F 02/25/17 15:44 Pulse Rate 64 02/25/17 15:44 Respiratory Rate 18 02/25/17 15:44 Blood Pressure 108/76 02/25/17 15:44 O2 Sat by Pulse Oximetry 97 02/25/17 15:44 Temperature 98.2 F 02/25/17 18:53 Pulse Rate 63 02/25/17 18:53 Respiratory Rate 15 02/25/17 18:53 Blood Pressure 92/56 02/25/17 18:53 O2 Sat by Pulse Oximetry 94 02/25/17 18:53 Oxygen Delivery Oxygen Delivery Room Air Chest Pain - MDM Narrative Medical decision making narrative: 61-year-old female history of stroke, diabetes, hypertension past on Plavix presents for evaluation of chest pain. Patient states she is under a lot of stress. The patient had a concerning story with retrosternal chest pain that was nonexertional with radiation into her right back and numbness and tingling down her left arm. Patient denies having a cardiac history. Patient had a cardiac evaluation which showed an unchanged EKG and negative troponin. The patient's symptoms have been short course however and a single troponin is not sufficient to rule out cardiac disease. Patient does not have risk factors concerning for pulmonary embolism. Patient chart was reviewed and showed she had an echo in the last year which showed EF of 60-65%. Patient does not have any recent cardiac stress test. Patient would likely benefit from a stress test and further cardiac evaluation. Patient also had a stress test back in September of last year which was negative for ischemia or infarct however with the patient's current symptoms and her risk factors she would need further evaluation. - Lab Data Lab results reviewed: Yes I reviewed the patient's lab results. Result diagrams: 02/25/17 16:18 02/25/17 16:18 Lab Results 02/25/17 02/25/17 02/25/17 Range/Units 16:18 16:18 16:18 WBC 9.0 (4.3-11.1) K/mcL RBC 5.46 H (3.82-4.97) M/mcL Hgb 15.9 H (11.5-15.4) g/dL Hct 47.5 H (35.3-44.9) % MCV 87.0 (83.0-100.0) fL MCH 29.1 (28.0-33.3) pg MCHC 33.5 (31.6-35.5) g/dL RDW 13.0 (11.5-14.5) % Plt Count 324 (140-400) K/mcL MPV 9.5 (9.4-12.4) fL Immature Gran % 0.6 (0-4) % Seg Neutrophils % 56.6 % Lymphocytes % 32.5 % Monocytes % 7.7 % Eosinophils % 2.2 % Basophils % 0.4 % Neutrophils # 5.1 (1.6-8.9) K/mcL Lymphocytes # 2.9 (0.6-4.6) K/mcL Monocytes # 0.7 (0.0-1.3) K/mcL Eosinophils # 0.2 (0.0-0.6) K/mcL Basophils # 0.0 (0.0-0.2) K/mcL PT 10.7 (9.4-12.1) Seconds INR 1.0 APTT 31.3 (26.0-36.0) Seconds Sodium 134 L (136-145) mEq/L Potassium 4.3 (3.5-4.5) mEq/L Chloride 97 L (98-109) mEq/L Carbon Dioxide 28 (19-29) mEq/L BUN 15 (7-20) mg/dL Creatinine 0.87 (0.57-1.11) mg/dL Est GFR ( Amer) > 60 (> 60) Est GFR (Non-Af Amer) > 60 (> 60) BUN/Creatinine Ratio 17 (6-26) Glucose 246 H (70-99) mg/dL Calculated Osmolality 287 (280-300) Calcium 9.9 (8.6-10.8) mg/dL Troponin I (0-0.03) ng/mL B-Natriuretic Peptide (0-100) pg/mL 02/25/17 02/25/17 Range/Units 16:18 16:18 WBC (4.3-11.1) K/mcL RBC (3.82-4.97) M/mcL Hgb (11.5-15.4) g/dL Hct (35.3-44.9) % MCV (83.0-100.0) fL MCH (28.0-33.3) pg MCHC (31.6-35.5) g/dL RDW (11.5-14.5) % Plt Count (140-400) K/mcL MPV (9.4-12.4) fL Immature Gran % (0-4) % Seg Neutrophils % % Lymphocytes % % Monocytes % % Eosinophils % % Basophils % % Neutrophils # (1.6-8.9) K/mcL Lymphocytes # (0.6-4.6) K/mcL Monocytes # (0.0-1.3) K/mcL Eosinophils # (0.0-0.6) K/mcL Basophils # (0.0-0.2) K/mcL PT (9.4-12.1) Seconds INR APTT (26.0-36.0) Seconds Sodium (136-145) mEq/L Potassium (3.5-4.5) mEq/L Chloride (98-109) mEq/L Carbon Dioxide (19-29) mEq/L BUN (7-20) mg/dL Creatinine (0.57-1.11) mg/dL Est GFR ( Amer) (> 60) Est GFR (Non-Af Amer) (> 60) BUN/Creatinine Ratio (6-26) Glucose (70-99) mg/dL Calculated Osmolality (280-300) Calcium (8.6-10.8) mg/dL Troponin I 0.00 (0-0.03) ng/mL B-Natriuretic Peptide < 10 (0-100) pg/mL - Radiology Data Radiology results reviewed: Yes I reviewed the patient's radiology results. Chest X-Ray 02/25/17 15:53 IMPRESSION: Minimal left basilar opacity, favored to represent atelectasis. Superimposed pneumonia is possible. D/ / Mika Sofia MD / Mika Sofia MD Interpreting Provider: Mika Sofia MD Heart Score - Score History: Moderately Suspicious EKG: Non Specific repolarisation Disturbance Age: 45-65 Risk Factors: 1-2 risk factors Troponin: Less than normal limit HEART Score Total: 4 S.B.A.Anuj. - S.B.A.Rangel Situation: Demographics, MOA Background: Presenting Complaint Assessment: Vital Signs, Course and respsone to treatment, Patient/Family Expectation, Pertinant Lab Results Recommendation: Barrier(s) to disposition, Recommendation based on pending studies, treatments, or consults S.B.A.RGenia Report Given to: Kenna Humphrey Repor Time: 17:34 Attestation Statement - Attestation Attestation: I examined this patient and my medical decision-making was reviewed with the EDGE POLISHER/PA/Advanced Practice Nurse/Resident Physician. I agree with the documented findings, disposition and treatment plan as described except to the extent set forth below. Patient emergency department complaining of chest pain. Patient has had a few episodes over the past couple of days. She experienced today around 1 PM while she was coloring. She states it substernal. She has tingling in her left arm associated with it. There is also some radiation to the right shoulder. She has a headache and feels dizzy. Patient was admitted a few months ago for chest pain and had a negative stress test at that time. She does have hypertension, high cholesterol, and diabetes that is uncontrolled. Former smoker but quit a few years ago. On examination she is awake and alert sitting up in bed in no acute distress. Heart regular lungs clear. Plan. Concern with the patient's symptoms and risk. Admitted to medicine for further cardiac workup.
[2017-02-25 16:25] LABS: Basophils % 0.4 %; Eosinophils # 0.2 K/mcL (0.0-0.6); Eosinophils % 2.2 %; Hematocrit 47.5 % (35.3-44.9); Hemoglobin 15.9 g/dL (11.5-15.4); Immature Granulocytes % 0.6 % (0-4); Lymphocytes # 2.9 K/mcL (0.6-4.6); Lymphocytes % 32.5 %; Mean Corpuscular HGB Conc 33.5 g/dL (31.6-35.5); Mean Corpuscular Hemoglobin 29.1 pg (28.0-33.3); Mean Platelet Volume 9.5 fL (9.4-12.4); Monocytes # 0.7 K/mcL (0.0-1.3); Monocytes % 7.7 %; Neutrophils # 5.1 K/mcL (1.6-8.9); Platelet Count 324 K/mcL (140-400); Red Blood Count 5.46 M/mcL (3.82-4.97); Segmented Neutrophils % 56.6 %
[2017-02-25] MEDS ORDERED: Nitroglycerin 0.4 MG TAB.SUBL SL PRN (16:25)
[2017-02-25 16:31] LABS: Prothrombin Time 10.7 Seconds (9.4-12.1)
[2017-02-25] MEDS ORDERED: Metoclopramide 10 MG/2 ML VIAL IVP ONE (16:33)
[2017-02-25 16:34] LABS: Activated Partial Thrombo Time 31.3 Seconds (26.0-36.0)
[2017-02-25 16:38] LABS: BUN/Creatinine Ratio 17 (6-26); Blood Urea Nitrogen 15 mg/dL (7-20); Calcium 9.9 mg/dL (8.6-10.8); Carbon Dioxide 28 mEq/L (19-29); Chloride 97 mEq/L (98-109); Glucose 246 mg/dL (70-99); Osmolality,Calculated 287 (280-300); Potassium 4.3 mEq/L (3.5-4.5); Sodium 134 mEq/L (136-145); eGFR For African Americans > 60 (> 60); eGFR For Non-African Americans > 60 (> 60)
[2017-02-25] MEDS ORDERED: 0.9 % Sodium Chloride 1,000 ML IVC ONE (17:20)
[2017-02-25] MEDS ORDERED: Naloxone 0.4 MG/ML INJ IVP PRN (17:49)
[2017-02-25] MEDS ORDERED: Dextrose Gel 15 GM PO PRN ×2 (18:44)
[2017-02-25] MEDS ORDERED: D5% in Water 1,000 ML IVC PRN (18:44)
[2017-02-25] MEDS ORDERED: *HR* Dextrose 50 % in Water (Syg) 50 ML SYRINGE IVP PRN (18:44)
--- NOTE | 2017-02-25 18:51 | Internal Med History&Physical ---
<Mireya Rivers J - Last Filed: 02/25/17 19:34> Date of Encounter: 02/25/17 Time of Encounter: 18:48 Assessment and Plan (1) Chest pain Status: Acute presented with chest pain that started day of admission. Relieved with nitro in the ED. Stress test and TTE 10/2016 unremarkable. Possibly stressed related but she does have cardiac risk factors (HTN, obesity diabetes). Initial troponin negative, EKG without acute ST changes. Cont to trend troponin, monitor on tele. Consult Cardiology if troponin uptrending or sx's worsening. Cont home ASA. Qualifiers: Chest pain type: unspecified Qualified Code(s): R07.9 - Chest pain, unspecified (2) COPD (chronic obstructive pulmonary disease) Status: Chronic per hx. CXR unremarkable, no evidence of exacerbation on exam. PRN nebs Qualifiers: COPD type: unspecified COPD Qualified Code(s): J44.9 - Chronic obstructive pulmonary disease, unspecified (3) Diabetes mellitus Status: Chronic per hx. Control unknown. Cont home long acting, hold oral hypoglycemic. Add SSI while inpatient. Monitor blood sugar and titrate PRN Qualifiers: Diabetes mellitus type: type 2 Diabetes mellitus complication status: with hyperglycemia Diabetes mellitus tank terminal gauger insulin use: with detention use Qualified Code(s): E11.65 - Type 2 diabetes mellitus with hyperglycemia; Z79.4 - senior living (current) use of insulin (4) Cerebrovascular accident Status: Inactive per hx. With residual left sided mild diplopia. Cont home Plavix, ASA, statin Qualifiers: CVA mechanism: unspecified Qualified Code(s): I63.9 - Cerebral infarction, unspecified (5) HTN (hypertension) Status: Chronic per hx. BP controlled. Cont home BP medications. Monitor BP and titrate PRN Qualifiers: Hypertension type: essential hypertension Qualified Code(s): I10 - Essential (primary) hypertension (6) DVT prophylaxis Status: Acute [facility] Internal Medicine - H&P: HPI Admitted From: Home History of present illness: Ms. Garay is a 61 year old female with PMH CVA, HTN, diabetes, and COPD who presented to [facility] on 02/25/2017 with complaints of chest pain. She was placed in observation for ACS rule out. Information obtained from chart review and patient report. Patient reports chest pain started a few hours before she presented to ER. Reported 08/11 mid sternal CP, radiated to left arm. Nitro relieved pain and nothing made worse. She also reports associated nausea with SOB. On my exam she says CP is much better, says she is going through a lot of stress at home and she thinks that has a lot to do with her sx's. Past Med Surg Social Fam HX - Past Medical History Medical history: COPD, CVA, diabetes, hyperlipidemia, hypertension, TIA Psychiatric history: anxiety, depression - Past Surgical History Surgical History: hip replacement (left), hysterectomy (Tubal ligation), orthopedic, other (Right arthroscopic knee surgery) - Social History Smoking Status: Former smoker Smokeless Tobacco Status: No Alcohol use: none Drug use: none - Family History Mother Living Status: Still Living Hx Family Cardiac Disorders: Yes Hx Family Endocrine Disorder: Yes (diabetes) Father Living Status: Hx Family Cardiac Disorders: Yes Hx Family Endocrine Disorder: Yes Internal Medicine - H&P: Meds Furosemide [Lasix] 20 mg PO QAM 11/15/15 [History] Insulin ASPART [Novolog] 12 - 18 unit SQ TIDWM 11/15/15 [History] Metformin [Glucophage] 1,000 mg PO BID 11/15/15 [History] Albuterol Sulfate [Albuterol Inhaler] 2 puff IH Q4-6H PRN 09/01/16 [History] Aspirin [Ecotrin] 325 mg PO DAILY 10/20/16 [History] Gabapentin [Neurontin] 600 mg PO TID 10/20/16 [History] Liraglutide [Victoza 2-Harish] 1.8 mg SQ DAILY 11/04/16 [History] Lisinopril [Zestril] 40 mg PO QAM 11/04/16 [History] Atorvastatin [Lipitor] 60 mg PO HS #30 tablet 11/06/16 [Rx] Insulin Glargine [Lantus] 40 unit SQ HS #0 vial 11/06/16 [Rx] Budesonide/Formoterol 80/4.5 [Symbicort 80/4.5] 2 puff IH BIDR 02/25/17 [ History] Duloxetine [Cymbalta] 60 mg PO DAILY 02/25/17 [History] Insulin Glargine [Lantus] 35 unit SQ QAM 02/25/17 [History] Allergies fluoxetine [From Prozac] Adverse Reaction (Verified 16 17:19) Gastrointestinal Upset naproxen [From Naprosyn] Adverse Reaction (Verified 10/20/16 17:19) Gastrointestinal Upset pioglitazone [From Actos] Adverse Reaction (Verified 10/20/16 17:19) Gastrointestinal Upset All Systems PM: A 10-system review of systems was performed and is negative for pertinent findings except as documented above in the HPI. - Constitutional Constitutional: no chills, no fever(s), no night sweats - EENT Eyes: no change in vision, no discharge, no pain, no photophobia Ears: no ear discharge, no ear pain, no tinnitus Nose, mouth and throat: no dysphagia, no nasal discharge, no neck pain, no sore throat - Cardiovascular Cardiovascular ROS IM: chest pain, dyspnea on exertion, no diaphoresis, no dyspnea, no lightheadedness, no palpitations, no syncope - Respiratory Respiratory: dyspnea, no cough, no wheezing, no excessive phlegm production - Gastrointestinal Gastrointestinal: no abdominal pain, no diarrhea, no hematemesis, no hematochezia, no melena, no nausea, no vomiting - Genitourinary Genitourinary: no change in urinary stream, no dysuria, no flank pain, no hematuria - Musculoskeletal Musculoskeletal ROS IM: no numbness, no tingling - Integumentary Integumentary IM: no rash, no unusual bruising - Neurological Neurological ROS: no confusion, no convulsions, no focal weakness, no numbness, no tingling, no tremor(s) - Hematologic/Lymphatic Hematologic/Lymphatic: no easy bruising - Constitutional Vitals: Temp Pulse Resp BP Pulse Ox 98.2 F 62 16 119/77 94 02/25/17 15:44 02/25/17 17:14 02/25/17 18:43 02/25/17 18:43 02/25/17 17:14 - Head Head exam: Present: atraumatic, normocephalic - Eye Eye exam: Present: PERRL, conjuntiva pink, sclera anicteric Pupils: Present: PERRL - Neck Neck exam general surgery: Present: supple, trachea midline. Absent: lymphadenopathy - Respiratory Respiratory exam: Present: CTAB. Absent: accessory muscle use, rales, rhonchi, wheezes - Cardiovascular Cardiovascular exam: Present: RRR. Absent: diastolic murmur, gallop, rubs, systolic murmur - GI/Abdominal GI/Abdominal exam: Present: normal bowel sounds, soft, no peritoneal signs. Absent: distended, tenderness - Extremities Exam Extremities exam: Present: warm, radial pulses palpable and symetrical. Absent : calf tenderness, cyanotic, pedal edema - Neurological Exam Neurological exam: Present: CN II-XII intact, oriented X3, no focal deficits. Absent: pronater drift, facial droop, speech deficit - Skin Skin exam: Present: dry, intact Internal Med - H&P Results - Labs CBC & Chem 7: 02/25/17 16:18 02/25/17 16:18 - EKG Data -: EKG Interpreted by Myself EKG shows normal: sinus rhythm <Cristi Dunbar - Last Filed: 03/04/17 00:49> Date of Encounter: 02/25/17 Internal Medicine - H&P: HPI Chief complaint: Chest Pain Admitted From: Emergency Dept Plans for Post Hospital Care: Home History of present illness: Ms. Garay is a 61 year old female to emergency room via the emergency department with a chief complaint of acute chest pain. Patient was visited, interviewed and examined. I examined this patient and my medical decision-making was reviewed with the Advanced Practice Nurse. Ms. Mireya Rivers. For this encounter, I have reviewed the CLINICAL EVALUATOR documentation, treatment plan, and medical decision making. I have had face to face time with this patient. I agree with the documented findings, disposition and treatment plan as described except to the extent set forth below. Cumulative laboratory and radiographic data base was considered and discussed. Plan of care was discussed in detail with the patient. Questions address. Consultative opinions will be sought as clinical circumstances justify. Hospital course will be dependent upon clinical findings, treatment response and potential consultative interventions. Given the patient's presenting concerns, past medical history, clinical findings and symptoms, she is admitted at this time to undergo further evaluation and disposition. Condition is serious. Prognosis is guarded. CODE STATUS is full. All Systems PM: A 10-system review of systems was performed and is negative for pertinent findings except as documented above in the HPI. - Constitutional Vitals: Temp Pulse Resp BP Pulse Ox 98.1 F 62 18 102/57 94 02/27/17 15:44 02/27/17 15:44 02/27/17 20:11 02/27/17 15:44 02/27/17 20:11 Internal Med - H&P Results - Labs CBC & Chem 7: 02/27/17 04:28 02/27/17 05:54 - Impressions ITS Impressions Brain MRI 02/26/17 13:59 IMPRESSION: 1. No acute intracranial abnormality within limits of mild motion artifact. 2. Mild chronic white matter microvascular ischemic changes. D/ / Jalen Rosario MD / Jalen Rosario MD Interpreting Provider: Jalen Rosario MD - Attending Attestation My signature below is to certify that this patient is under my care and that I, or Nurse Practitioner, Ms. Mireya Rivers, working with me, has had a face-to- face encounter with this patient.
[2017-02-25] MEDS: Budesonide/Formoterol 80/4.5 MDI IH SCH (19:50)
[2017-02-25] MEDS ORDERED: Insulin LISPRO 300 UNITS/3 ML VIAL SQ SCH (21:00)
[2017-02-25] MEDS: Insulin DETEMIR 100 UNIT/ML X5UNITS SQ SCH (21:34)
[2017-02-25] MEDS: Gabapentin 300 MG CAPSULE PO SCH (21:35)
[2017-02-26 04:47] LABS: Basophils % 0.4 %; Eosinophils # 0.3 K/mcL (0.0-0.6); Eosinophils % 3.7 %; Hematocrit 43.8 % (35.3-44.9); Hemoglobin 14.4 g/dL (11.5-15.4); Immature Granulocytes % 0.7 % (0-4); Lymphocytes # 3.1 K/mcL (0.6-4.6); Lymphocytes % 42.7 %; Mean Corpuscular HGB Conc 32.9 g/dL (31.6-35.5); Mean Corpuscular Volume 88.3 fL (83.0-100.0); Mean Platelet Volume 9.7 fL (9.4-12.4); Monocytes # 0.7 K/mcL (0.0-1.3); Neutrophils # 3.2 K/mcL (1.6-8.9); Platelet Count 269 K/mcL (140-400); Red Blood Count 4.96 M/mcL (3.82-4.97); Segmented Neutrophils % 43.5 %
[2017-02-26 05:04] LABS: Alanine Aminotransferase 10 Units/L (0-55); Albumin 3.2 g/dL (3.5-5.0); Alkaline Phosphatase 94 Units/L (38-126); Aspartate Amino Transferase 15 Units/L (5-34); BUN/Creatinine Ratio 20 (6-26); Bilirubin,Total 0.8 mg/dL (0.2-1.2); Blood Urea Nitrogen 21 mg/dL (7-20); Calcium 9.3 mg/dL (8.6-10.8); Carbon Dioxide 24 mEq/L (19-29); Chloride 101 mEq/L (98-109); Cholesterol 161 mg/dL (< 200); Globulin 3.1 g/dL (2.4-3.5); Glucose 275 mg/dL (70-99); HDL Cholesterol 32 mg/dL (40-59); LDL Cholesterol,Calculated 106 mg/dL (0-99); Osmolality,Calculated 293 (280-300); Sodium 135 mEq/L (136-145); Total Protein 6.3 g/dL (6.0-8.3); Triglycerides 113 mg/dL (< 150); eGFR For African Americans > 60 (> 60); eGFR For Non-African Americans 54 (> 60)
[2017-02-26] MEDS: Insulin LISPRO 300 UNITS/3 ML VIAL SQ SCH ×3 (08:10→18:01)
[2017-02-26] MEDS: Aspirin Enteric Coated 325 MG Tablet PO SCH (08:11)
[2017-02-26] MEDS: Furosemide 20 MG TABLET PO SCH (08:11)
[2017-02-26] MEDS: Lisinopril 20 MG TABLET PO SCH (08:12)
[2017-02-26] MEDS: Gabapentin 300 MG CAPSULE PO SCH ×3 (08:12→21:08)
[2017-02-26] MEDS: Insulin DETEMIR 100 UNIT/ML X5UNITS SQ SCH ×2 (08:17→21:08)
[2017-02-26] MEDS: Budesonide/Formoterol 80/4.5 MDI IH SCH ×2 (08:21→20:35)
[2017-02-26] MEDS ORDERED: Acetaminophen 325 MG TABLET PO PRN (12:33)
[2017-02-26] MEDS: *HR* HYDROcodone/Acet 5/325 mg TABLET PO PRN ×2 (13:00→21:07)
[2017-02-26] MEDS ORDERED: *HR* LORazepam 2 MG/ML VIAL IVP ONE (15:14)
--- NOTE | 2017-02-26 18:40 | Internal Med Progress Note ---
Date of Encounter: 02/26/17 Time of Encounter: 15:00 - Assessment and plan (1) Chest pain Current Visit: No Status: Acute Assessment and plan: Resolved now. 3 sets of troponin negative. Patient had a stress test 5 months ago, which was negative. - Negative d-dimer - BNP negative - Continue close monitoring patient Qualifiers: Chest pain type: other chest pain Qualified Code(s): R07.89 - Other chest pain; R07.8 - Other chest pain (2) COPD (chronic obstructive pulmonary disease) Current Visit: No Status: Chronic Assessment and plan: Stable, continue home medications Qualifiers: COPD type: unspecified COPD Qualified Code(s): J44.9 - Chronic obstructive pulmonary disease, unspecified (3) Obesity Current Visit: No Status: Chronic Assessment and plan: Need for lifestyle modification Qualifiers: Obesity type: due to excess calories Obesity severity: morbid Qualified Code(s): E66.01 - Morbid (severe) obesity due to excess calories (4) Diabetes mellitus Current Visit: No Status: Chronic Assessment and plan: Continue basal and sliding scale coverage Qualifiers: Diabetes mellitus type: type 2 Diabetes mellitus complication status: with hyperglycemia Diabetes mellitus oil heaterman insulin use: with oil heaterman use Qualified Code(s): E11.65 - Type 2 diabetes mellitus with hyperglycemia; Z79.4 - alf (current) use of insulin (5) Headache Current Visit: No Status: Acute Assessment and plan: Patient has a history of headache. Most likely migraine. MRI brain remarkable. Will continue symptomatic treatment. Qualifiers: Headache type: unspecified Headache chronicity pattern: acute headache Intractability: not intractable Qualified Code(s): R51 - Headache (6) Anxiety Current Visit: No Status: Chronic Assessment and plan: Continue Home medications (7) HTN (hypertension) Current Visit: No Status: Chronic Assessment and plan: Blood pressure is stable. Continue home medication Qualifiers: Hypertension type: essential hypertension Qualified Code(s): I10 - Essential (primary) hypertension (8) DVT prophylaxis Current Visit: No Status: Acute Assessment and plan: Heparin subcutaneously (9) History of CVA (cerebrovascular accident) Current Visit: No Status: Chronic Assessment and plan: With residual left facial drop. On aspirin, atorvastatin and Plavix. - Time Spent With Patient 25 - 35 minutes - Subjective Interval history: Patient is a 61-year-old female admitted for chest pain. Her past medical history is significant for COPD, diabetes, history of CVA, hypertension. Patient was seen and examined. She is chest pain-free now. However, patient complains of headache with dizziness. Vitals are stable. Brain MRI was done, result is unremarkable. Patient has 3 sets of troponin being negative, BNP negative, d-dimer negative. Patient had stress test 5 months ago, which is negative. We will continue symptomatic treatment for headache. Closely monitor patient. - Constitutional Vitals: Temp Pulse Resp BP Pulse Ox 98.6 F 63 18 115/70 91 02/26/17 11:21 02/26/17 11:21 02/26/17 11:21 02/26/17 11:21 02/26/17 11:21 General appearance: Present: A&O X 3, no acute distress, answers questions appropriately - Head Head exam: Present: atraumatic, normocephalic - Eye Eye exam: Present: PERRL, conjuntiva pink, sclera anicteric Pupils: Present: PERRL - Neck Neck exam general surgery: Present: supple, trachea midline. Absent: lymphadenopathy - Respiratory Respiratory exam: Present: CTAB. Absent: accessory muscle use, rales, rhonchi, wheezes - Cardiovascular Cardiovascular exam: Present: RRR, +S1, +S2. Absent: diastolic murmur, gallop, rubs, systolic murmur - GI/Abdominal GI/Abdominal exam: Present: normal bowel sounds, soft, no peritoneal signs. Absent: distended, tenderness - Extremities Exam Extremities exam: Present: warm, radial pulses palpable and symetrical. Absent : calf tenderness, cyanotic, pedal edema - Neurological Exam Neurological exam: Present: CN II-XII intact, oriented X3, no focal deficits. Absent: pronater drift, facial droop, speech deficit - Skin Skin exam: Present: dry, intact Internal Medicine: Result - Labs CBC & Chem 7: 02/26/17 04:22 02/26/17 04:22 Labs: Short CBC 02/26/17 Range/Units 04:22 WBC 7.3 (4.3-11.1) K/mcL Hgb 14.4 D (11.5-15.4) g/dL Hct 43.8 (35.3-44.9) % Plt Count 269 (140-400) K/mcL Neutrophils # 3.2 (1.6-8.9) K/mcL BMP 02/26/17 04:22 Sodium 135 L Potassium 4.0 Chloride 101 Carbon Dioxide 24 BUN 21 H Creatinine 1.03 Glucose 275 H Calcium 9.3 Cardiac Enzymes 02/25/17 02/26/17 Range/Units 22:04 04:22 Troponin I 0.00 0.00 (0-0.03) ng/mL Liver Function 02/26/17 Range/Units 04:22 Total Bilirubin 0.8 (0.2-1.2) mg/dL AST 15 (5-34) Units/L ALT 10 (0-55) Units/L Alkaline Phosphatase 94 (38-126) Units/L Albumin 3.2 L (3.5-5.0) g/dL - ABG Interpretation ABG results: PT/INR, D-dimer PT 10.7 Seconds (9.4-12.1) 02/25/17 16:18 D-Dimer 480 ng/mLFEU (0-500) 02/26/17 08:27 - Impressions Impressions Brain MRI 02/26/17 13:59 IMPRESSION: 1. No acute intracranial abnormality within limits of mild motion artifact. 2. Mild chronic white matter microvascular ischemic changes. D/ / Jalen Rosario MD / Jalen Rosario MD Interpreting Provider: Jalen Rosario MD Consult Discharge Plan - Plan Referrals: Pao Conroy [employer] [Advanced Practice Nurse] - 03/03/17 1:00 pm
--- NOTE | 2017-02-26 19:26 | Electrocardiograph Report ---
[address] [address] Test Date: 2017-02-25 Pat Name: Bina Garay Department: 102 Room: 3B Gender: F Booky: Antolin : 1955 Requested By: Vita See Order Number: [id number] Reading MD: Ron Hwang MD Measurements Intervals [place] Rate: 65 P: 36 IN: 149 QRS: 64 QRSD: 105 T: 90 QT: 433 QTc: 445 Interpretive Statements SINUS RHYTHM Electronically Signed On 02-26-2017 19:24:38 EDT by Ron Hwang MD
[2017-02-26] MEDS ORDERED: Insulin LISPRO 300 UNITS/3 ML VIAL SQ SCH (21:00)
[2017-02-27 05:13] LABS: Basophils % 0.5 %; Eosinophils # 0.2 K/mcL (0.0-0.6); Eosinophils % 3.7 %; Hematocrit 44.8 % (35.3-44.9); Hemoglobin 14.6 g/dL (11.5-15.4); Immature Granulocytes % 0.5 % (0-4); Lymphocytes # 2.6 K/mcL (0.6-4.6); Lymphocytes % 39.7 %; Mean Corpuscular HGB Conc 32.6 g/dL (31.6-35.5); Mean Corpuscular Hemoglobin 28.7 pg (28.0-33.3); Mean Platelet Volume 9.8 fL (9.4-12.4); Monocytes # 0.6 K/mcL (0.0-1.3); Monocytes % 8.6 %; Neutrophils # 3.1 K/mcL (1.6-8.9); Platelet Count 250 K/mcL (140-400); Red Blood Count 5.09 M/mcL (3.82-4.97); Red Cell Distribution Width 12.7 % (11.5-14.5)
[2017-02-27] MEDS: *HR* HYDROcodone/Acet 5/325 mg TABLET PO PRN (06:00)
[2017-02-27] MEDS: *HR* Heparin 5,000 UNIT/ML VIAL SQ SCH ×2 (06:00→17:12)
[2017-02-27 07:00] LABS: BUN/Creatinine Ratio 17 (6-26); Blood Urea Nitrogen 13 mg/dL (7-20); Calcium 9.1 mg/dL (8.6-10.8); Carbon Dioxide 23 mEq/L (19-29); Chloride 101 mEq/L (98-109); Glucose 321 mg/dL (70-99); Osmolality,Calculated 292 (280-300); Potassium 4.3 mEq/L (3.5-4.5); Sodium 135 mEq/L (136-145); eGFR For African Americans > 60 (> 60); eGFR For Non-African Americans > 60 (> 60)
[2017-02-27] MEDS: Insulin LISPRO 300 UNITS/3 ML VIAL SQ SCH ×5 (07:56→17:11)
[2017-02-27] MEDS: Budesonide/Formoterol 80/4.5 MDI IH SCH ×2 (08:00→20:11)
[2017-02-27] MEDS: Gabapentin 300 MG CAPSULE PO SCH ×2 (09:06→17:10)
[2017-02-27] MEDS: Lisinopril 20 MG TABLET PO SCH (09:06)
[2017-02-27] MEDS: Aspirin Enteric Coated 325 MG Tablet PO SCH (09:06)
[2017-02-27] MEDS: Furosemide 20 MG TABLET PO SCH (09:06)
[2017-02-27] MEDS: Insulin DETEMIR 100 UNIT/ML X5UNITS SQ SCH (09:08)
--- NOTE | 2017-02-27 11:11 | Discharge Summary ---
Date of Encounter: 02/27/17 Time of Encounter: 10:00 - Discharge Diagnosis (1) Chest pain Priority: Primary Status: Acute Qualifiers: Chest pain type: other chest pain Qualified Code(s): R07.89 - Other chest pain; R07.8 - Other chest pain (2) COPD (chronic obstructive pulmonary disease) Priority: Secondary Status: Chronic Qualifiers: COPD type: unspecified COPD Qualified Code(s): J44.9 - Chronic obstructive pulmonary disease, unspecified (3) Obesity Priority: Secondary Status: Chronic Qualifiers: Obesity type: due to excess calories Obesity severity: morbid Qualified Code(s): E66.01 - Morbid (severe) obesity due to excess calories (4) Diabetes mellitus Priority: Secondary Status: Chronic Qualifiers: Diabetes mellitus type: type 2 Diabetes mellitus complication status: with hyperglycemia Diabetes mellitus custodial insulin use: with terminal gauger supervisor use Qualified Code(s): E11.65 - Type 2 diabetes mellitus with hyperglycemia; 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 control 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 of 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 (5) Headache Priority: Primary Status: Acute Qualifiers: Headache type: unspecified Headache chronicity pattern: acute headache Intractability: not intractable Qualified Code(s): R51 - Headache (6) Anxiety Priority: Secondary Status: Chronic (7) HTN (hypertension) Priority: Secondary Status: Chronic Qualifiers: Hypertension type: essential hypertension Qualified Code(s): I10 - Essential (primary) hypertension (8) DVT prophylaxis Priority: Secondary Status: Acute (9) History of CVA (cerebrovascular accident) Priority: Secondary Status: Chronic - Discharge Medications Home Medications: Furosemide [Lasix] 20 mg PO QAM 11/15/15 [History] Insulin ASPART [Novolog] 12 - 18 unit SQ TIDWM 11/15/15 [History] Metformin [Glucophage] 1,000 mg PO BID 11/15/15 [History] Albuterol Sulfate [Albuterol Inhaler] 2 puff IH Q4-6H PRN 09/01/16 [History] Aspirin [Ecotrin] 325 mg PO DAILY 10/20/16 [History] Gabapentin [Neurontin] 600 mg PO TID 10/20/16 [History] Liraglutide [Victoza 2-Harish] 1.8 mg SQ DAILY 11/04/16 [History] Lisinopril [Zestril] 40 mg PO QAM 11/04/16 [History] Atorvastatin [Lipitor] 60 mg PO HS #30 tablet 11/06/16 [Rx] Insulin Glargine [Lantus] 40 unit SQ HS #0 vial 11/06/16 [Rx] Budesonide/Formoterol 80/4.5 [Symbicort 80/4.5] 2 puff IH BIDR 02/25/17 [ History] Duloxetine [Cymbalta] 60 mg PO DAILY 02/25/17 [History] Insulin Glargine [Lantus] 35 unit SQ QAM 02/25/17 [History] Allergies/Adverse Reactions: Allergies fluoxetine [From Prozac] Adverse Reaction (Verified 10/20/16 17:19) Gastrointestinal Upset naproxen [From Naprosyn] Adverse Reaction (Verified 10/20/16 17:19) Gastrointestinal Upset pioglitazone [From Actos] Adverse Reaction (Verified 10/20/16 17:19) Gastrointestinal Upset Procedures/tests Complete & Pending: Procedures Performed prior 72 hours Category Date Time Status MR head/brain wo con [MR] Stat MRI 02/26/17 13:59 Completed Date of admission: 02/25/17 18:02 Primary care physician: PCP NO Consults: 02/25/17 20:02 Consult to Residential Support Worker [CONS] Routine Reason for SW Consult: PT HAS PASSPORT AIDE SERVICES THROUGH [facility], WILL BE MOVING TO NEW ADDRESS AT DISCHARGE. Discharging clinician: Lennox Fajardo Anticipated date of discharge: 02/27/17 - Patient Status Disposition: Transfer SNF Condition: Fair Functional capacity at discharge: uses cane/walker Overall status at discharge: patient is back to baseline - Discharge Instructions Follow Up With: Pao Conroy [employer] [Advanced Practice Nurse] - 03/03/17 1:00 pm - Diet and Activity Activity: as per physical therapy Diet: diabetic diet Interval History: Ms. Garay is a 61 year old female with PMH CVA, HTN, diabetes, and COPD who presented to [facility] on 02/25/2017 with complaints of chest pain. She was placed in observation for ACS rule out. Information obtained from chart review and patient report. Patient reports chest pain started a few hours before she presented to ER. Reported 10/10 mid sternal CP, radiated to left arm. Nitro relieved pain and nothing made worse. She also reports associated nausea with SOB. On my exam she says CP is much better, says she is going through a lot of stress at home and she thinks that has a lot to do with her sx's. Hospital course: Ms. Garay is a 61 year old female admitted for chest pain. She was placed on cardiac monitoring, 3 sets of troponin negative. Patient has a recent stress test 5 months ago, result is negative. Patient also has negative chest x-ray, d -dimer, and BNP. Patient complain headache, MRI shows unremarkable. She now has a chronic hx of headache, consider migraine, improved after treatment. Saw and examined the patient today. She is awake alert, oriented3. Vitals are stable. No chest pain or headache. Will discharge patient back to [facility] today. - Time Spent with Patient Total time spent providing and/or coordinating discharge services: 40 minutes Greater than 30 minutes - Constitutional Vitals: Temp Pulse Resp BP Pulse Ox 97.9 F 61 18 122/73 95 02/27/17 07:18 02/27/17 07:18 02/27/17 08:02 02/27/17 07:18 02/27/17 08:02 General appearance: Present: A&O X 3, no acute distress, answers questions appropriately - Head Head exam: Present: atraumatic, normocephalic - Eye Eye exam: Present: PERRL, conjuntiva pink, sclera anicteric Pupils: Present: PERRL - Neck Neck exam general surgery: Present: supple, trachea midline. Absent: lymphadenopathy - Respiratory Respiratory exam: Present: CTAB. Absent: accessory muscle use, rales, rhonchi, wheezes - Cardiovascular Cardiovascular exam: Present: RRR, +S1, +S2. Absent: diastolic murmur, gallop, rubs, systolic murmur - GI/Abdominal GI/Abdominal exam: Present: normal bowel sounds, soft, no peritoneal signs. Absent: distended, tenderness - Extremities Exam Extremities exam: Present: warm, radial pulses palpable and symetrical. Absent : calf tenderness, cyanotic, pedal edema - Neurological Exam Neurological exam: Present: CN II-XII intact, oriented X3, no focal deficits. Absent: pronater drift, facial droop, speech deficit - Skin Skin exam: Present: dry, intact
--- NOTE | 2017-02-27 11:18 | Physician Discharge Referral ---
ExtendedCare Referral Info Transfer To: F Provider in Charge after Transfer: Other - Diagnosis (1) Chest pain Status: Acute (2) COPD (chronic obstructive pulmonary disease) Status: Chronic (3) Obesity Status: Chronic (4) Diabetes mellitus Status: Chronic (5) Headache Status: Acute (6) Anxiety Status: Chronic (7) HTN (hypertension) Status: Chronic (8) DVT prophylaxis Status: Acute (9) History of CVA (cerebrovascular accident) Status: Chronic - Transfer Medications Home Medications: Furosemide [Lasix] 20 mg PO QAM 11/15/15 [History] Insulin ASPART [Novolog] 12 - 18 unit SQ TIDWM 11/15/15 [History] Metformin [Glucophage] 1,000 mg PO BID 11/15/15 [History] Albuterol Sulfate [Albuterol Inhaler] 2 puff IH Q4-6H PRN 09/01/16 [History] Aspirin [Ecotrin] 325 mg PO DAILY 10/20/16 [History] Gabapentin [Neurontin] 600 mg PO TID 10/20/16 [History] Liraglutide [Victoza 2-Harish] 1.8 mg SQ DAILY 11/04/16 [History] Lisinopril [Zestril] 40 mg PO QAM 11/04/16 [History] Atorvastatin [Lipitor] 60 mg PO HS #30 tablet 11/06/16 [Rx] Insulin Glargine [Lantus] 40 unit SQ HS #0 vial 11/06/16 [Rx] Budesonide/Formoterol 80/4.5 [Symbicort 80/4.5] 2 puff IH BIDR 02/25/17 [ History] Duloxetine [Cymbalta] 60 mg PO DAILY 02/25/17 [History] Insulin Glargine [Lantus] 35 unit SQ QAM 02/25/17 [History] Allergies/Adverse Reactions: Allergies fluoxetine [From Prozac] Adverse Reaction (Verified 10/20/16 17:19) Gastrointestinal Upset naproxen [From Naprosyn] Adverse Reaction (Verified 10/20/16 17:19) Gastrointestinal Upset pioglitazone [From Actos] Adverse Reaction (Verified 10/20/16 17:19) Gastrointestinal Upset - Respiratory Orders Smoking Cessation: Smoking cessation has been advised. For more information, call the [place] Tobacco Quit Line at 8-059-DFZX-NOW. - Advance Directives Code Status: Full Code - Rehabiliation Orders Rehab Potential: Fair Rehab Orders: Evaluation for Physical Therapy, Evaluation for Occupational Therapy - Diet Orders No Concentrated Sweets CERTIFICATION: I certify that the transfer of the above named patient to an Extended Care Facility is necessary for the continuing treatment of the diagnosis listed. The above information is true and accurate reflection of patient's current condition. Confidential - Redisclosure prohibited without a patient's written consent.
--- NOTE | 2017-02-27 12:40 | Physician Discharge Referral ---
Home Health/Hosp Referral Info Transfer to: Home Health Provider in Charge Post Discharge: PCP - Diagnosis (1) Chest pain Priority: Primary Status: Acute (2) COPD (chronic obstructive pulmonary disease) Status: Chronic (3) Obesity Status: Chronic (4) Diabetes mellitus Status: Chronic (5) Headache Status: Acute (6) Anxiety Status: Chronic (7) HTN (hypertension) Status: Chronic (8) DVT prophylaxis Status: Acute (9) History of CVA (cerebrovascular accident) Status: Chronic - Respiratory Orders Smoking Cessation: Smoking cessation has been advised. For more information, call the [place] Tobacco Quit Line at 5-473-MCFR-NOW. - Diet/Nutrition Diet/Nutrition Orders: No Concentrated Sweets - Services Needed Following services are medically necessary services: Nursing, Home Health Aide, Physical Therapy, Occupational Therapy - Transfer Medications Home Medications: Furosemide [Lasix] 20 mg PO QAM 11/15/15 [History] Insulin ASPART [Novolog] 12 - 18 unit SQ TIDWM 11/15/15 [History] Metformin [Glucophage] 1,000 mg PO BID 11/15/15 [History] Albuterol Sulfate [Albuterol Inhaler] 2 puff IH Q4-6H PRN 09/01/16 [History] Aspirin [Ecotrin] 325 mg PO DAILY 10/20/16 [History] Gabapentin [Neurontin] 600 mg PO TID 10/20/16 [History] Liraglutide [Victoza 2-Harish] 1.8 mg SQ DAILY 11/04/16 [History] Lisinopril [Zestril] 40 mg PO QAM 11/04/16 [History] Atorvastatin [Lipitor] 60 mg PO HS #30 tablet 11/06/16 [Rx] Insulin Glargine [Lantus] 40 unit SQ HS #0 vial 11/06/16 [Rx] Budesonide/Formoterol 80/4.5 [Symbicort 80/4.5] 2 puff IH BIDR 02/25/17 [ History] Duloxetine [Cymbalta] 60 mg PO DAILY 02/25/17 [History] Insulin Glargine [Lantus] 35 unit SQ QAM 02/25/17 [History] Allergies/Adverse Reactions: Allergies fluoxetine [From Prozac] Adverse Reaction (Verified 10/20/16 17:19) Gastrointestinal Upset naproxen [From Naprosyn] Adverse Reaction (Verified 10/20/16 17:19) Gastrointestinal Upset pioglitazone [From Actos] Adverse Reaction (Verified 10/20/16 17:19) Gastrointestinal Upset Certification: Further, I certify that my clinical findings support that this patient is homebound (i.e. absences from home require considerable and taxing effort and are for medical reasons or hinduism services or infrequently or short duration when for other reasons) because: Attestation: My signature below is to certify that this patient is under my care and that I, or nurse practitioner, or a physician's triage assistant working with me, has a face-to -face encounter with this patient.
[2017-02-27 15:45] VITALS: BP 102/57
--- NOTE | 2017-02-27 19:20 | Event Note ---
Date of Encounter: 02/27/17 Time of Encounter: 17:00 Patient has difficulty walking. PTOT evaluation was called. Recommend patient to discharge to ECF. Patient agreed to discharge to ECF. Social work is working on ECF discharge. Hold the discharge for now until ECF accept the patient.
== END 2017-02-27 20:50 ==
LOC: 3BNU 15:40 → EMEROO 15:40 → SUATTDRO 18:02 → 3BNU 18:44
PROVIDERS: ADMIT Internal Medicine; ATTEND Internal Medicine

== ENCOUNTER 2017-04-28 16:46 | Inpatient (IN) ==
[2017-04-28 17:32] LABS: Basophils % 0.5 %; Eosinophils # 0.2 K/mcL (0.0-0.6); Eosinophils % 2.3 %; Hematocrit 42.8 % (35.3-44.9); Hemoglobin 15.1 g/dL (11.5-15.4); Immature Granulocytes % 0.4 % (0-4); Lymphocytes % 38.6 %; Mean Corpuscular HGB Conc 35.3 g/dL (31.6-35.5); Mean Corpuscular Volume 85.1 fL (83.0-100.0); Mean Platelet Volume 10.1 fL (9.4-12.4); Monocytes # 0.6 K/mcL (0.0-1.3); Monocytes % 7.7 %; Neutrophils # 3.9 K/mcL (1.6-8.9); Platelet Count 263 K/mcL (140-400); Red Blood Count 5.03 M/mcL (3.82-4.97); Red Cell Distribution Width 12.7 % (11.5-14.5); Segmented Neutrophils % 50.5 %
[2017-04-28 17:39] LABS: Prothrombin Time 10.4 Seconds (9.4-12.1)
[2017-04-28 17:41] LABS: Activated Partial Thrombo Time 29.7 Seconds (26.0-36.0)
[2017-04-28 17:46] LABS: Alanine Aminotransferase 12 Units/L (0-55); Albumin 3.6 g/dL (3.5-5.0); Alkaline Phosphatase 152 Units/L (38-126); Aspartate Amino Transferase 16 Units/L (5-34); BUN/Creatinine Ratio 24 (6-26); Bilirubin,Direct 0.1 mg/dL (0.0-0.5); Bilirubin,Indirect 0.3 mg/dL (0.0-1.2); Bilirubin,Total 0.4 mg/dL (0.2-1.2); Blood Urea Nitrogen 22 mg/dL (7-20); Calcium 9.8 mg/dL (8.6-10.8); Carbon Dioxide 25 mEq/L (19-29); Chloride 94 mEq/L (98-109); Globulin 3.6 g/dL (2.4-3.5); Glucose 410 mg/dL (70-99); Osmolality,Calculated 291 (280-300); Potassium 4.3 mEq/L (3.5-4.5); Sodium 130 mEq/L (136-145); Total Protein 7.2 g/dL (6.0-8.3); eGFR For African Americans > 60 (> 60); eGFR For Non-African Americans > 60 (> 60)
[2017-04-28 17:48] LABS: Ethanol < 10 mg/dL (0-10)
[2017-04-28 18:08] LABS: Bilirubin,Urine Negative (Negative); Blood,Urine Negative (Negative); Color,Urine Yellow (Yellow); Glucose,Urine (UA) >=1000 mg/dL (Normal); Ketones,Urine Negative (Negative); Leukocyte Esterase,Urine Negative (Negative); Nitrite,Urine Positive (Negative); Protein,Urine Trace mg/dL (Neg-Trace); Urobilinogen,Urine Normal (Normal)
[2017-04-28] MEDS ORDERED: 0.9 % Sodium Chloride 1,000 ML IVC ONE (18:10)
[2017-04-28 18:13] LABS: Amphetamine Screen,Urine Negative ng/mL (Cutoff=1000); Barbiturate Screen,Urine Negative ng/mL (Cutoff=200); Benzodiazepines Screen,Urine Negative ng/mL (Cutoff=200); Cannabinoid Screen,Urine Negative ng/mL (Cutoff = 50); Cocaine Screen,Urine Negative ng/mL (Cutoff= 300); Opiate Screen,Urine Negative ng/mL (Cutoff=300); Phencyclidine Screen,Urine Negative ng/mL (Cutoff=25)
[2017-04-28 18:21] LABS: Clarity,Urine Clear (Clear)
[2017-04-28 18:26] LABS: WBC,Urine 0-3 per hpf (0-3)
[2017-04-28 18:27] LABS: Bacteria,Urine Many per hpf (None-Few); Hyaline Casts,Urine None Seen per lpf (None-Few)
--- NOTE | 2017-04-28 19:10 | Emergency Department Note ---
Disposition Clinical Impression: Altered mental status, unspecified Qualifiers: Altered mental status type: disorientation Qualified Code(s): R41.0 - Disorientation, unspecified Urinary tract infection Qualifiers: Urinary tract infection type: acute cystitis Hematuria presence: with hematuria Qualified Code(s): N30.01 - Acute cystitis with hematuria Disposition: Admitted As Inpatient Referrals: Roe Pritchard, PAC [Primary Care Provider] - Forms: ED Satisfaction Letter Altered Mental Status HPI - General Chief Complaint: ED Fall Stated Complaint: Falls / osmin / chest pain / dizzy / unsteady gate Source: patient, family Limitations: no limitations Nursing Notes Reviewed: Yes Vital Signs Reviewed: Yes - History of Present Illness HPI Narrative: This 62-year-old female states she woke up not feeling well today she is, fatigue had difficulty walking issues with balance. She went to the adult daycare today participated he said that she was more sleepy than normal they recommended going to the hospital she refused. Patient one pack home she is still having issues with weakness family states she was slurring her speech him at home and called 911. Onset of symptoms were earlier this morning on awakening. Patient had a prior workup for CVA in the past and neurology consult. Associated symptoms: Denies: chest pain, cough, diaphoresis, fever - Related Data Home Medications Medication Instructions Recorded Confirmed Furosemide [Lasix] 20 mg PO QAM 11/15/15 02/25/17 Insulin ASPART [Novolog] 12 - 18 unit SQ TIDWM 11/15/15 02/25/17 metFORMIN [Glucophage] 1,000 mg PO BID 11/15/15 02/25/17 Albuterol Sulfate [Albuterol 2 puff IH Q4-6H PRN 09/01/16 02/25/17 Inhaler] Aspirin [Ecotrin] 325 mg PO DAILY 10/20/16 02/25/17 Gabapentin [Neurontin] 600 mg PO TID 10/20/16 02/25/17 Liraglutide [Victoza 2-Harish] 1.8 mg SQ DAILY 11/04/16 02/25/17 Lisinopril [Zestril] 40 mg PO QAM 11/04/16 02/25/17 Budesonide/Formoterol 80/4.5 2 puff IH BIDR 02/25/17 02/25/17 [Symbicort 80/4.5] DULoxetine [Cymbalta] 60 mg PO DAILY 02/25/17 02/25/17 Insulin Glargine [Lantus] 35 unit SQ QAM 02/25/17 02/25/17 Previous Rx's Medication Instructions Recorded Atorvastatin [Lipitor] 60 mg PO HS #30 tablet 11/06/16 Insulin Glargine [Lantus] 40 unit SQ HS #0 vial 11/06/16 Allergies Allergy/AdvReac Type Severity Reaction Status Date / Time fluoxetine [From Prozac] AdvReac Gastrointestinal Verified 10/20/16 17:19 Upset naproxen [From Naprosyn] AdvReac Gastrointestinal Verified 10/20/16 17:19 Upset pioglitazone [From Actos] AdvReac Gastrointestinal Verified 10/20/16 17:19 Upset All systems ED: reviewed and negative except as stated. Constitutional: Reports: weakness. Denies: fever Gastrointestinal: Denies: abdominal pain, nausea, vomiting Past Medical History - Past Medical History Source: patient, old records reviewed, obtained from family, nursing notes reviewed Medical history: Reports: arthritis, COPD, CVA, diabetes, hyperlipidemia, hypertension, TIA Surgical history: Reports: hip replacement, hysterectomy, orthopedic, other Psychiatric history: Reports: anxiety, depression [employer] history: Reports: bilateral tubal ligation - Social History Smoking Status: Former smoker Smokeless Tobacco Status: No Alcohol use: Reports: none Drug use: Reports: none Physical Exam - General Limitations: no limitations General appearance: alert, in no apparent distress, other (Patient seems mildly somnolent otherwise awake alert oriented 3 gives a good history) - Head Head exam: atraumatic, normocephalic, normal inspection - Eye Eye exam: Present: normal appearance, PERRL, EOMI - Expanded Eye Exam Pupils: Left: reactive - ENT ENT exam: normal exam, normal oropharynx, mucous membranes moist - Expanded ENT Exam External ear exam: Present: normal external inspection Mouth exam: Present: normal external inspection Teeth exam: Present: normal inspection Throat exam: Present: normal inspection - Neck Neck exam: Present: normal inspection, full ROM, trachea midline - Chest Chest inspection: Present: normal inspection, symmetric chest wall rise - Respiratory Respiratory exam: Present: normal lung sounds bilaterally - Cardiovascular Cardiovascular exam: Present: regular rate, normal rhythm, normal heart sounds - Abdominal Exam Abdominal exam: Present: soft, Non-Tender. Absent: tenderness, distention, guarding, rebound, rigidity - Extremities Exam Extremities exam: Present: normal inspection, full ROM. Absent: tenderness, pedal edema - Expanded Upper Extremity Exam Shoulder exam: Present: normal inspection, full ROM Arm exam: Present: normal inspection, full ROM Elbow exam: Present: normal inspection, full ROM Forearm/Wrist exam: Present: normal inspection, full ROM Hand exam: Present: normal inspection, full ROM Vascular exam: Normal: capillary refill, radial pulse - Expanded Lower Extremity Exam Hip/Pelvis exam: Present: normal inspection, full ROM Upper leg exam: Present: normal inspection, full ROM Knee exam: Present: normal inspection, full ROM Lower leg exam: Present: normal inspection, full ROM Ankle exam: Present: normal inspection, full ROM Foot/toe exam: Present: normal inspection, full ROM Neurovascular/Tendon exam: Absent: motor deficit, sensory deficit, tendon deficit - Back Exam Back exam: Present: normal inspection, full ROM. Absent: tenderness - Neurological Exam Neurological exam: Present: alert, oriented X3 - Expanded Neurological Exam Patient oriented to: Present: person, place, time Coma Scale Eye Opening: Spontaneous Coma Scale Motor Response: Obeys Commands Coma Scale Verbal Response: Oriented Coma Scale Total: 15 - Psychiatric Psychiatric exam: Present: normal affect, normal mood - Skin Skin exam: Present: warm, dry, intact, normal color Course Vital Signs Temperature 98.0 F 04/28/17 16:49 Pulse Rate 71 04/28/17 16:49 Respiratory Rate 18 04/28/17 16:49 Blood Pressure 99/67 04/28/17 16:49 O2 Sat by Pulse Oximetry 93 04/28/17 16:49 Temperature 98.0 F 04/28/17 16:49 Pulse Rate 65 04/28/17 18:30 Respiratory Rate 18 04/28/17 18:30 Blood Pressure 99/53 04/28/17 18:30 O2 Sat by Pulse Oximetry 96 04/28/17 18:30 Oxygen Delivery Oxygen Delivery Nasal Cannula Altered Mental Status - Differential Diagnosis Likely: altered mental status, dementia, hypoglycemia, hyponatremia, substance use - Medical Records Medical records reviewed: Yes I reviewed the patient's medical records. - Lab Data Lab results reviewed: Yes I reviewed the patient's lab results. Result diagrams: 04/28/17 17:23 04/28/17 17:23 Lab Results 04/28/17 04/28/17 04/28/17 Range/Units 17:08 17:23 17:23 WBC 7.7 (4.3-11.1) K/mcL RBC 5.03 H (3.82-4.97) M/mcL Hgb 15.1 (11.5-15.4) g/dL Hct 42.8 (35.3-44.9) % MCV 85.1 (83.0-100.0) fL MCH 30.0 (28.0-33.3) pg MCHC 35.3 (31.6-35.5) g/dL RDW 12.7 (11.5-14.5) % Plt Count 263 (140-400) K/mcL MPV 10.1 (9.4-12.4) fL Immature Gran % 0.4 (0-4) % Seg Neutrophils % 50.5 % Lymphocytes % 38.6 % Monocytes % 7.7 % Eosinophils % 2.3 % Basophils % 0.5 % Neutrophils # 3.9 (1.6-8.9) K/mcL Lymphocytes # 3.0 (0.6-4.6) K/mcL Monocytes # 0.6 (0.0-1.3) K/mcL Eosinophils # 0.2 (0.0-0.6) K/mcL Basophils # 0.0 (0.0-0.2) K/mcL PT (9.4-12.1) Seconds INR APTT (26.0-36.0) Seconds Sodium (136-145) mEq/L Potassium (3.5-4.5) mEq/L Chloride (98-109) mEq/L Carbon Dioxide (19-29) mEq/L BUN (7-20) mg/dL Creatinine (0.57-1.11) mg/dL Est GFR ( Amer) (> 60) Est GFR (Non-Af Amer) (> 60) BUN/Creatinine Ratio (6-26) Glucose (70-99) mg/dL Calculated Osmolality (280-300) Calcium (8.6-10.8) mg/dL Total Bilirubin (0.2-1.2) mg/dL Direct Bilirubin (0.0-0.5) mg/dL Indirect Bilirubin (0.0-1.2) mg/dL AST (5-34) Units/L ALT (0-55) Units/L Alkaline Phosphatase (38-126) Units/L Troponin I (0-0.03) ng/mL Serum Total Protein (6.0-8.3) g/dL Albumin (3.5-5.0) g/dL Globulin (2.4-3.5) g/dL Albumin/Globulin Ratio (1.1-2.2) Urine Color Yellow (Yellow) Urine Clarity Clear (Clear) Urine pH 6.0 (5.0-8.0) pH Units Ur Specific [place] 1.030 H (1.010-1.025) Urine Protein Trace (Neg-Trace) mg/dL Urine Glucose (UA) >=1000 H (Normal) mg/dL Urine Ketones Negative (Negative) mg/dL Urine Blood Negative (Negative) Urine Nitrite Positive A (Negative) Urine Bilirubin Negative (Negative) Urine Urobilinogen Normal (Normal) mg/dL Ur Leukocyte Esterase Negative (Negative) Urine Microscopic WBC 0-3 (0-3) per hpf Urine Bacteria Many H (None-Few) per hpf Hyaline Casts None Seen (None-Few) per lpf Ur Culture Indicated? YES A (NO) Urine Opiates Screen Negative (Ndmttn=082) ng/mL Ur Barbiturates Screen Negative (Ymmagw=064) ng/mL Ur Phencyclidine Scrn Negative (Cutoff=25) ng/mL Ur Amphetamines Screen Negative (Cxuyti=0079) ng/mL U Benzodiazepines Scrn Negative (Ydiqnt=440) ng/mL Urine Cocaine Screen Negative (Cutoff= 300) ng/mL U Marijuana (THC) Screen Negative (Cutoff = 50) ng/mL Ethyl Alcohol (0-10) mg/dL 04/28/17 04/28/17 04/28/17 Range/Units 17:23 17:23 17:23 WBC (4.3-11.1) K/mcL RBC (3.82-4.97) M/mcL Hgb (11.5-15.4) g/dL Hct (35.3-44.9) % MCV (83.0-100.0) fL MCH (28.0-33.3) pg MCHC (31.6-35.5) g/dL RDW (11.5-14.5) % Plt Count (140-400) K/mcL MPV (9.4-12.4) fL Immature Gran % (0-4) % Seg Neutrophils % % Lymphocytes % % Monocytes % % Eosinophils % % Basophils % % Neutrophils # (1.6-8.9) K/mcL Lymphocytes # (0.6-4.6) K/mcL Monocytes # (0.0-1.3) K/mcL Eosinophils # (0.0-0.6) K/mcL Basophils # (0.0-0.2) K/mcL PT 10.4 (9.4-12.1) Seconds INR 1.0 APTT 29.7 (26.0-36.0) Seconds Sodium 130 L (136-145) mEq/L Potassium 4.3 (3.5-4.5) mEq/L Chloride 94 L (98-109) mEq/L Carbon Dioxide 25 (19-29) mEq/L BUN 22 H (7-20) mg/dL Creatinine 0.91 (0.57-1.11) mg/dL Est GFR ( Amer) > 60 (> 60) Est GFR (Non-Af Amer) > 60 (> 60) BUN/Creatinine Ratio 24 (6-26) Glucose 410 H (70-99) mg/dL Calculated Osmolality 291 (280-300) Calcium 9.8 (8.6-10.8) mg/dL Total Bilirubin 0.4 (0.2-1.2) mg/dL Direct Bilirubin 0.1 (0.0-0.5) mg/dL Indirect Bilirubin 0.3 (0.0-1.2) mg/dL AST 16 (5-34) Units/L ALT 12 (0-55) Units/L Alkaline Phosphatase 152 H (38-126) Units/L Troponin I 0.00 (0-0.03) ng/mL Serum Total Protein 7.2 (6.0-8.3) g/dL Albumin 3.6 (3.5-5.0) g/dL Globulin 3.6 H (2.4-3.5) g/dL Albumin/Globulin Ratio 1.0 L (1.1-2.2) Urine Color (Yellow) Urine Clarity (Clear) Urine pH (5.0-8.0) pH Units Ur Specific [place] (1.010-1.025) Urine Protein (Neg-Trace) mg/dL Urine Glucose (UA) (Normal) mg/dL Urine Ketones (Negative) mg/dL Urine Blood (Negative) Urine Nitrite (Negative) Urine Bilirubin (Negative) Urine Urobilinogen (Normal) mg/dL Ur Leukocyte Esterase (Negative) Urine Microscopic WBC (0-3) per hpf Urine Bacteria (None-Few) per hpf Hyaline Casts (None-Few) per lpf Ur Culture Indicated? (NO) Urine Opiates Screen (Klrjmx=350) ng/mL Ur Barbiturates Screen (Jyjspm=719) ng/mL Ur Phencyclidine Scrn (Cutoff=25) ng/mL Ur Amphetamines Screen (Qgqidx=0524) ng/mL U Benzodiazepines Scrn (Swvnmn=566) ng/mL Urine Cocaine Screen (Cutoff= 300) ng/mL U Marijuana (THC) Screen (Cutoff = 50) ng/mL Ethyl Alcohol < 10 (0-10) mg/dL - Radiology Data Radiology results reviewed: Yes I reviewed the patient's radiology results. - EKG Data EKG attestation: Yes I reviewed and interpreted this EKG. EKG shows normal: sinus rhythm Rate: normal Rhythm: NSR Interpretation: no acute changes TPA Checklist - LKW: 3-4.5 hrs Add. Warnings/Precautions Patient/family understanding: The patient/family members have been counseled and understood the risk, benefit , and alternatives of treatment.
[2017-04-28 20:13] LABS: ABG HCO3 27.6 mEQ/L (21-27); ABG Oxygen Saturation 99 % (95-98); ABG TCO2 28.7 mEq/L (20-26)
[2017-04-28 20:15] LABS: ABG PCO2 37 mmHg (35-45); ABG PH 7.48 pH Units (7.32-7.45); ABG PO2 113 mmHg (85-104)
[2017-04-28 20:16] LABS: Blood Gas Liter Flow 2 L/MIN
[2017-04-28] MEDS ORDERED: Naloxone 0.4 MG/ML INJ IVP PRN (20:50)
[2017-04-28] MEDS ORDERED: *HR* Dextrose 50 % in Water (Syg) 50 ML SYRINGE IVP PRN (20:53)
[2017-04-28] MEDS ORDERED: D5% in Water 1,000 ML IVC PRN (20:53)
[2017-04-28] MEDS ORDERED: Dextrose Gel 15 GM PO PRN ×2 (20:53)
[2017-04-28] MEDS ORDERED: Insulin LISPRO 300 UNITS/3 ML VIAL SQ SCH (21:00)
--- NOTE | 2017-04-28 21:03 | Internal Med History&Physical ---
Date of Encounter: 04/28/17 Time of Encounter: 20:58 Assessment and Plan (1) Encephalopathy Current visit: Yes Status: Acute 1 patient awoke this morning actually 6:30 experiencing garbled speech and unsteady gait some confusion. Throughout the day she felt fatigued and was lethargic and sleeping for most of the afternoon. Once arriving home at around 3 PM she continued to have difficulty ambulating and falling down. Suspect this metabolic in nature. She does have urinary tract infection as well as some hyperglycemia/hyponatremia. CT of the head was negative, ABG WNL tox screen is negative. We will continue with IV Rocephin awaiting urine culture results adjust to sensitivity 2 Fall precautions 3 monitor lab work 4 frequent neuro checks (2) Hyperglycemia Current visit: No Status: Acute 1 patient glucose 410, she does have an infectious process, we will continue to monitor blood glucose AC/HS, cover wiith sliding scale, and basal 2 diabetic diet 3 we will hold oral antidiabetic for now resume upon discharge (3) Hyponatremia Current visit: Yes Status: Acute Sodium is 130, most likely rt elevated BS. we will correct glucose and continue to monitor sodium (4) UTI (urinary tract infection) Current visit: Yes Status: Acute 1 we will continue with Rocephin and adjust to sensitivity once culture is back Qualifiers: Urinary tract infection type: acute cystitis Hematuria presence: without hematuria Qualified Code(s): N30.00 - Acute cystitis without hematuria (5) HTN (hypertension) Current visit: No Status: Chronic we will continue with home medications Qualifiers: Hypertension type: essential hypertension Qualified Code(s): I10 - Essential (primary) hypertension (6) History of CVA (cerebrovascular accident) Current visit: No Status: Chronic 1 Patient had a MRI in December 2016 that showed mild chronic white matter microvascular ischemic changes and an unremarkable Head/neck in 10/2016 we will continue with ASA plavix and statin will need to clarify statin in AM. Patent unsure if she takes Atorvastatin or Lovastastin (7) Chest pain Current visit: Yes Status: Acute patient did complain of intermittent chest pain that resolved on own. we will trend troponin first troponin negative obtain echo Qualifiers: Chest pain type: other chest pain Qualified Code(s): R07.89 - Other chest pain; R07.8 - Other chest pain (8) DVT prophylaxis Current visit: No Status: Acute lovenox Internal Medicine - H&P: HPI Chief complaint: lethargic Admitted From: Emergency Dept Plans for Post Hospital Care: Home History of present illness: Ms. Garay is a 62 year old female past medical history of COPD oxygen-dependent hypertension TIAs neuropathy. Coronary patient's workup was reportedly 6:30 AM did not feel well she said she was slurring her speech and was wobbly on her feet. She states that she has been experiencing confusion off and on for the past 2-3 days, however she states that this occurs frequently and that these episodes resolve on her own. She denies any shortness of breath abdominal pain nausea vomiting diarrhea. She does admit to intermittent chest pain today. She describes as sharp nonradiating. No aggravating factors and comes and goes. Patient attends adult daycare she participated up until approximately 11 AM at that time she did take a nap and did not wake up until 2 in the afternoon. She went home and she states that approximately 3 she fell striking her head on the couch. She denies any loss of consciousness per family urged her to go to the ER for evaluation which she refused. Family was concerned and called 911, she was brought to the ER for evaluation. According to ER records CT of head was negative for any intracranial abnormality EKG was sinus rhythm no ST-T wave abnormality chest x-ray with left basilar atelectasis. Lab work did reveal some hyponatremia sodium of 130 hyperglycemia glucose 410 leukocytosis troponin was 0 urinalysis was positive for nitrites. Patient was given IV fluid, Rocephin and has been admitted for further workup and evaluation. Presently patient is alert oriented and appropriate following simple commands. I do note a left-sided facial droop which she states is chronic she also has weakness in her left leg which she states is chronic. Lungs clear heart sounds are regular S1 and S2 with no rubs clicks, murmurs noted abdomen soft nontender no pedal edema noted. She is hemodynamically stable at this time. I reviewed this case withDr Muir who agrees with plan. Past Med Surg Social Fam HX - Past Medical History Medical history: arthritis, COPD, CVA, diabetes, hyperlipidemia, hypertension, TIA Psychiatric history: anxiety, depression - Past Surgical History Surgical History: hip replacement, hysterectomy, orthopedic, other - Social History Smoking Status: Former smoker Smokeless Tobacco Status: No Alcohol use: none Drug use: none - Family History Mother Living Status: Still Living Hx Family Cardiac Disorders: Yes Hx Family Endocrine Disorder: Yes (diabetes) Father Living Status: Hx Family Cardiac Disorders: Yes Hx Family Endocrine Disorder: Yes Internal Medicine - H&P: Meds Furosemide [Lasix] 20 mg PO QAM 11/15/15 [History] Insulin ASPART [Novolog] 0 unit SQ TIDWM 11/15/15 [History] metFORMIN [Glucophage] 1,000 mg PO BID 11/15/15 [History] Albuterol Sulfate [Albuterol Inhaler] 2 puff IH Q4-6H PRN 09/01/16 [History] Aspirin [Ecotrin] 325 mg PO DAILY 10/20/16 [History] Gabapentin [Neurontin] 600 mg PO TID 10/20/16 [History] Liraglutide [Victoza 2-Harish] 1.8 mg SQ DAILY 11/04/16 [History] Lisinopril [Zestril] 40 mg PO QAM 11/04/16 [History] Budesonide/Formoterol 80/4.5 [Symbicort 80/4.5] 2 puff IH QID 02/25/17 [History ] DULoxetine [Cymbalta] 60 mg PO DAILY 02/25/17 [History] Insulin Glargine [Lantus] 20 unit SQ QAM 02/25/17 [History] ALPRAZolam [Xanax 0.5 MG Tablet] 0.5 mg PO TID PRN 04/28/17 [History] Atorvastatin [Lipitor] 40 mg PO HS 04/28/17 [History] Clopidogrel [Plavix] 75 mg PO DAILY 04/28/17 [History] Folic Acid/Multivit-Min/Lutein [Adult Multivitamin Gummies] 1 each PO DAILY [History] Insulin Glargine [Lantus] 45 unit SQ HS 04/28/17 [History] Oxygen 3 l NS HS 04/28/17 [History] Allergies fluoxetine [From Prozac] Adverse Reaction (Verified 04/28/17 19:28) ams naproxen [From Naprosyn] Adverse Reaction (Verified 10/20/16 17:19) Gastrointestinal Upset pioglitazone [From Actos] Adverse Reaction (Verified 10/20/16 17:19) Gastrointestinal Upset All Systems PM: A 10-system review of systems was performed and is negative for pertinent findings except as documented above in the HPI. - Constitutional Constitutional: lethargy, weakness - EENT Eyes: no change in vision, no discharge, no pain, no photophobia Nose, mouth and throat: no dysphagia, no nasal discharge, no neck pain, no sore throat - Cardiovascular Cardiovascular ROS IM: chest pain, no diaphoresis, no dyspnea, no lightheadedness, no palpitations, no syncope - Respiratory Respiratory: no cough, no dyspnea, no wheezing, no excessive phlegm production - Gastrointestinal Gastrointestinal: no abdominal pain, no diarrhea, no hematemesis, no hematochezia, no melena, no nausea, no vomiting - Genitourinary Genitourinary: no change in urinary stream, no dysuria, no flank pain, no hematuria - Musculoskeletal Musculoskeletal ROS IM: numbness, tingling - Integumentary Integumentary IM: as per HPI - Neurological Neurological ROS: abnormal gait, frequent falls, headache(s), lack of coordination, numbness, tingling, weakness - Constitutional Vitals: Temp Pulse Resp BP Pulse Ox 98.0 F 61 18 104/62 97 04/28/17 16:49 04/28/17 19:37 04/28/17 20:08 04/28/17 20:08 04/28/17 19:37 General appearance: Present: A&O X 3, answers questions appropriately - Head Head exam: Present: atraumatic, normocephalic - Eye Eye exam: Present: PERRL, conjuntiva pink, sclera anicteric Pupils: Present: PERRL - Neck Neck exam general surgery: Present: supple, trachea midline. Absent: lymphadenopathy - Respiratory Respiratory exam: Present: CTAB. Absent: accessory muscle use, rales, rhonchi, wheezes - Cardiovascular Cardiovascular exam: Present: RRR, +S1, +S2. Absent: diastolic murmur, gallop, rubs, systolic murmur - GI/Abdominal GI/Abdominal exam: Present: normal bowel sounds, soft, no peritoneal signs. Absent: distended, tenderness - Extremities Exam Extremities exam: Present: warm, radial pulses palpable and symetrical. Absent : calf tenderness, cyanotic, pedal edema - Neurological Exam Neurological exam: Present: CN II-XII intact, oriented X3, no focal deficits, facial droop. Absent: pronater drift, speech deficit - Expanded Neurological Exam Patient oriented to: Present: person, place, time Cranial Nerves: EOM's intact PM: Normal, gag reflex PM: Normal, nystagmus PM: Normal, tongue deviation PM: Normal Neuro motor strength exam: LUE: 5, RUE: 5, LLE: 3, RLE: 4 Coma Scale Eye Opening: Spontaneous Coma Scale Motor Response: Obeys Commands Coma Scale Verbal Response: Oriented Coma Scale Total: 15 - Skin Skin exam: Present: dry, intact Internal Med - H&P Results - Labs CBC & Chem 7: 04/28/17 17:23 04/28/17 17:23 - ABG Interpretation ABG results: 04/28/17 20:02 ABG pH 7.48 H ABG pCO2 37 ABG pO2 113 H ABG HCO3 27.6 H ABG Total CO2 28.7 H ABG O2 Saturation 99 H ABG Base Excess 4.0 H - EKG Data EKG shows normal: sinus rhythm - Diagnostic Studies Other Images Additional comments: Chest X-Ray 04/28/17 17:12 IMPRESSION: Left basilar atelectasis versus scarring. No other acute cardiopulmonary findings. D/ / Gretchen Abraham MD / Gretchen Abraham MD Interpreting Provider: Gretchen Abraham MD Head CT 04/28/17 17:36 IMPRESSION: No acute intracranial abnormality. D/ / Bismark Torres MD / Bismark Torres MD Interpreting Provider: Bismark Torres MD
[2017-04-28] MEDS ORDERED: Insulin DETEMIR 100 UNIT/ML X5UNITS SQ SCH (22:15)
[2017-04-28] MEDS ORDERED: NON-FORMULARY MEDICATION 1 EACH EACH (Insulin Glargine [Lantus] 45 UNIT) SQ SCH (22:15)
[2017-04-29] MEDS ORDERED: Budesonide/Formoterol 80/4.5 MDI IH SCH (05:00)
[2017-04-29 05:23] LABS: Basophils % 0.6 %; Eosinophils # 0.2 K/mcL (0.0-0.6); Eosinophils % 3.2 %; Hematocrit 44.4 % (35.3-44.9); Hemoglobin 14.6 g/dL (11.5-15.4); Immature Granulocytes % 0.6 % (0-4); Lymphocytes # 2.3 K/mcL (0.6-4.6); Lymphocytes % 33.6 %; Mean Corpuscular HGB Conc 32.9 g/dL (31.6-35.5); Mean Corpuscular Hemoglobin 28.7 pg (28.0-33.3); Mean Corpuscular Volume 87.2 fL (83.0-100.0); Monocytes # 0.6 K/mcL (0.0-1.3); Neutrophils # 3.7 K/mcL (1.6-8.9); Platelet Count 245 K/mcL (140-400); Red Blood Count 5.09 M/mcL (3.82-4.97); Red Cell Distribution Width 12.8 % (11.5-14.5)
[2017-04-29 05:27] LABS: BUN/Creatinine Ratio 18 (6-26); Blood Urea Nitrogen 18 mg/dL (7-20); Calcium 9.2 mg/dL (8.6-10.8); Carbon Dioxide 28 mEq/L (19-29); Chloride 97 mEq/L (98-109); Chol/HDL Ratio 7.5 (0-4.9); Cholesterol 277 mg/dL (< 200); Glucose 343 mg/dL (70-99); HDL Cholesterol 37 mg/dL (40-59); LDL Cholesterol,Calculated 188 mg/dL (0-99); Magnesium 1.8 mg/dL (1.6-2.6); Osmolality,Calculated 291 (280-300); Potassium 4.1 mEq/L (3.5-4.5); Sodium 133 mEq/L (136-145); Triglycerides 262 mg/dL (< 150); eGFR For African Americans > 60 (> 60); eGFR For Non-African Americans 56 (> 60)
[2017-04-29] MEDS: *HR* Enoxaparin 40 MG/0.4 ML SYRINGE SQ SCH (06:14)
[2017-04-29] MEDS: Budesonide/Formoterol 80/4.5 MDI IH SCH ×2 (07:58→20:22)
[2017-04-29] MEDS: Aspirin Enteric Coated 325 MG Tablet PO SCH (08:06)
[2017-04-29] MEDS: Lisinopril 20 MG TABLET PO SCH (08:06)
[2017-04-29] MEDS: Furosemide 20 MG TABLET PO SCH (08:06)
[2017-04-29] MEDS: Gabapentin 300 MG CAPSULE PO SCH ×3 (08:06→21:33)
[2017-04-29] MEDS: Insulin LISPRO 300 UNITS/3 ML VIAL SQ SCH ×3 (08:07→17:29)
[2017-04-29 08:20] LABS: Hemoglobin A1C 12.1 %
[2017-04-29] MEDS ORDERED: NON-FORMULARY MEDICATION 1 EACH EACH (Insulin Glargine [Lantus] 20 UNIT) SQ SCH (09:00)
[2017-04-29] MEDS ORDERED: Insulin DETEMIR 100 UNIT/ML X5UNITS SQ SCH ×3 (09:00→14:02)
--- NOTE | 2017-04-29 10:04 | Internal Med Progress Note ---
<AliciaSterling mcrae - Last Filed: 04/29/17 10:01> Date of Encounter: 04/29/17 Time of Encounter: 10:01 - Assessment and plan (1) Encephalopathy Current Visit: Yes Status: Acute Assessment and plan: Acute. Likely related to urinary tract infection. Appears improved. Continue to treat infection and continue to monitor. (2) Urinary tract infection Current Visit: Yes Status: Acute Assessment and plan: UA shows positive nitrites and many bacteria. Patient reports symptoms with dysuria. Culture pending. Antibiotics initiated was ceftriaxone. Qualifiers: Urinary tract infection type: acute cystitis Hematuria presence: without hematuria Qualified Code(s): N30.00 - Acute cystitis without hematuria (3) COPD (chronic obstructive pulmonary disease) Current Visit: No Status: Chronic Assessment and plan: Stable. No evidence of exacerbation. Continue maintenance medications. Qualifiers: COPD type: unspecified COPD Qualified Code(s): J44.9 - Chronic obstructive pulmonary disease, unspecified (4) Diabetes mellitus Current Visit: No Status: Chronic Assessment and plan: Uncontrolled. Blood sugars been on the 300s to 400s since admission. Will increase insulin. Hemoglobin A1c of 12.1. 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 Continue home medication. Qualifiers: Hypertension type: essential hypertension Qualified Code(s): I10 - Essential (primary) hypertension (6) DVT prophylaxis Current Visit: No Status: Acute Assessment and plan: Lovenox 40 mg daily - Subjective Interval history: Patient seen and examined at bedside. Patient states that she feels much better today. She feels that she is thinking clearly and does not feel as unsteady on her feet. She did report dysuria prior to arrival but this is improved. Denies fever, chills, headache, vision changes, recent falls. - Constitutional Vitals: Temp Pulse Resp BP Pulse Ox 98.0 F 69 16 114/67 92 04/29/17 06:53 04/29/17 06:53 04/29/17 06:53 04/29/17 06:53 04/29/17 06:53 General appearance: Present: A&O X 3, answers questions appropriately - Respiratory Respiratory exam: Present: CTAB. Absent: rales, rhonchi, wheezes - Cardiovascular Cardiovascular exam: Present: RRR. Absent: gallop, rubs, systolic murmur - GI/Abdominal GI/Abdominal exam: Present: normal bowel sounds, soft. Absent: distended, tenderness - Extremities Exam Extremities exam: Present: pedal edema. Absent: tenderness, warm - Neurological Exam Neurological exam: Present: alert, CN II-XII intact, oriented X3, no focal deficits Internal Medicine: Result - Labs CBC & Chem 7: 04/29/17 04:38 04/29/17 04:38 Labs: Short CBC 04/29/17 Range/Units 04:38 WBC 6.9 (4.3-11.1) K/mcL Hgb 14.6 (11.5-15.4) g/dL Hct 44.4 (35.3-44.9) % Plt Count 245 (140-400) K/mcL Neutrophils # 3.7 (1.6-8.9) K/mcL BMP 04/29/17 04:38 Sodium 133 L Potassium 4.1 Chloride 97 L Carbon Dioxide 28 BUN 18 Creatinine 1.00 Glucose 343 H Calcium 9.2 Cardiac Enzymes 04/29/17 04/29/17 Range/Units 00:52 04:38 Troponin I 0.00 0.01 (0-0.03) ng/mL - ABG Interpretation ABG results: ABG ABG pH 7.48 pH Units (7.32-7.45) H 04/28/17 20:02 ABG pCO2 37 mmHg (35-45) 04/28/17 20:02 ABG pO2 113 mmHg (85-104) H 04/28/17 20:02 ABG O2 Saturation 99 % (95-98) H 04/28/17 20:02 PT/INR, D-dimer PT 10.4 Seconds (9.4-12.1) 04/28/17 17:23 Consult Discharge Plan - Plan Referrals: Roe Pritchard, PAC [Primary Care Provider] - <Chun Jackson - Last Filed: 04/29/17 17:21> Date of Encounter: 04/29/17 - Constitutional Vitals: Temp Pulse Resp BP Pulse Ox 98.1 F 88 17 91/59 92 04/29/17 15:17 04/29/17 15:17 04/29/17 15:17 04/29/17 15:17 04/29/17 15:17 Internal Medicine: Result - Labs CBC & Chem 7: 04/29/17 04:38 04/29/17 04:38 - ABG Interpretation ABG results: ABG ABG pH 7.48 pH Units (7.32-7.45) H 04/28/17 20:02 ABG pCO2 37 mmHg (35-45) 04/28/17 20:02 ABG pO2 113 mmHg (85-104) H 04/28/17 20:02 ABG O2 Saturation 99 % (95-98) H 04/28/17 20:02 PT/INR, D-dimer PT 10.4 Seconds (9.4-12.1) 04/28/17 17:23 - Attending Attestation I examined this patient and my medical decision-making was reviewed with the BANKING SPECIALIST/PA/Advanced Practice Nurse/Resident Physician. I agree with the documented findings, disposition and treatment plan as described except to the extent set forth below.
[2017-04-29] MEDS: Acetaminophen 325 MG TABLET PO PRN (10:36)
[2017-04-29] MEDS ORDERED: Insulin LISPRO 300 UNITS/3 ML VIAL SQ SCH (14:02)
[2017-04-30 03:12] LABS: Basophils % 0.6 %; Eosinophils # 0.2 K/mcL (0.0-0.6); Eosinophils % 2.4 %; Hematocrit 41.1 % (35.3-44.9); Hemoglobin 13.5 g/dL (11.5-15.4); Immature Granulocytes % 0.5 % (0-4); Lymphocytes # 2.6 K/mcL (0.6-4.6); Mean Corpuscular HGB Conc 32.8 g/dL (31.6-35.5); Mean Corpuscular Hemoglobin 28.7 pg (28.0-33.3); Mean Corpuscular Volume 87.4 fL (83.0-100.0); Mean Platelet Volume 9.8 fL (9.4-12.4); Monocytes # 0.6 K/mcL (0.0-1.3); Monocytes % 8.6 %; Neutrophils # 3.2 K/mcL (1.6-8.9); Platelet Count 232 K/mcL (140-400); Red Cell Distribution Width 12.8 % (11.5-14.5); Segmented Neutrophils % 48.9 %
[2017-04-30 03:26] LABS: BUN/Creatinine Ratio 22 (6-26); Blood Urea Nitrogen 20 mg/dL (7-20); Calcium 9.4 mg/dL (8.6-10.8); Carbon Dioxide 26 mEq/L (19-29); Chloride 98 mEq/L (98-109); Glucose 371 mg/dL (70-99); Magnesium 1.8 mg/dL (1.6-2.6); Osmolality,Calculated 294 (280-300); Potassium 4.3 mEq/L (3.5-4.5); Sodium 133 mEq/L (136-145); eGFR For African Americans > 60 (> 60); eGFR For Non-African Americans > 60 (> 60)
[2017-04-30] MEDS: Acetaminophen 325 MG TABLET PO PRN (03:29)
[2017-04-30] MEDS: *HR* Enoxaparin 40 MG/0.4 ML SYRINGE SQ SCH (06:27)
[2017-04-30] MEDS: Aspirin Enteric Coated 325 MG Tablet PO SCH (08:00)
[2017-04-30] MEDS: Gabapentin 300 MG CAPSULE PO SCH ×2 (08:00→17:12)
[2017-04-30] MEDS: Furosemide 20 MG TABLET PO SCH (08:00)
[2017-04-30] MEDS: Lisinopril 20 MG TABLET PO SCH (08:00)
[2017-04-30] MEDS: Insulin LISPRO 300 UNITS/3 ML VIAL SQ SCH ×3 (08:00→17:12)
[2017-04-30] MEDS: Budesonide/Formoterol 80/4.5 MDI IH SCH ×2 (08:07→19:49)
[2017-04-30] MEDS ORDERED: *HR* HYDROcodone/Acet 5/325 mg TABLET PO ONE (08:22)
--- NOTE | 2017-04-30 10:25 | Internal Med Progress Note ---
<CristiSterling vasquez - Last Filed: 04/30/17 10:22> Date of Encounter: 04/30/17 Time of Encounter: 10:23 - Assessment and plan (1) Encephalopathy Current Visit: Yes Status: Acute Assessment and plan: Acute. Resolved. Likely related to urinary tract infection. Continue to treat infection and continue to monitor. (2) Urinary tract infection Current Visit: Yes Status: Acute Assessment and plan: UA shows positive nitrites and many bacteria, culture shows gram-negative rods. Patient reports symptoms with dysuria. Continue ceftriaxone until final culture and sensitivity. Qualifiers: Urinary tract infection type: acute cystitis Hematuria presence: without hematuria Qualified Code(s): N30.00 - Acute cystitis without hematuria (3) COPD (chronic obstructive pulmonary disease) Current Visit: No Status: Chronic Assessment and plan: Stable. No evidence of exacerbation. Continue maintenance medications. Qualifiers: COPD type: unspecified COPD Qualified Code(s): J44.9 - Chronic obstructive pulmonary disease, unspecified (4) Diabetes mellitus Current Visit: No Status: Chronic Assessment and plan: Uncontrolled. Blood sugars been on the 300s to 400s since admission. Will increase continued to increase insulin Qualifiers: Diabetes mellitus type: type 2 Diabetes mellitus complication status: with hyperglycemia Diabetes mellitus terminal makeup operator insulin use: with terminal makeup operator use Qualified Code(s): E11.65 - Type 2 diabetes mellitus with hyperglycemia; Z79.4 - senior living (current) use of insulin (5) HTN (hypertension) Current Visit: No Status: Chronic Assessment and plan: Under good control. Continue home medication. Qualifiers: Hypertension type: essential hypertension Qualified Code(s): I10 - Essential (primary) hypertension (6) DVT prophylaxis Current Visit: No Status: Acute Assessment and plan: Lovenox 40 mg daily - Subjective Interval history: Patient seen and examined at bedside. Patient states that she feels much better today. She denies dysuria. Denies fever, chills, headache, vision changes, recent falls. - Constitutional Vitals: Temp Pulse Resp BP Pulse Ox 97.9 F 64 16 99/61 95 04/30/17 06:54 04/30/17 06:54 04/30/17 08:07 04/30/17 06:54 04/30/17 08:07 General appearance: Present: A&O X 3, no acute distress, answers questions appropriately - Respiratory Respiratory exam: Present: CTAB. Absent: rales, rhonchi, wheezes - Cardiovascular Cardiovascular exam: Present: RRR. Absent: gallop, rubs, systolic murmur - GI/Abdominal GI/Abdominal exam: Present: normal bowel sounds, soft. Absent: distended, tenderness - Extremities Exam Extremities exam: Present: warm. Absent: pedal edema, tenderness - Neurological Exam Neurological exam: Present: alert, CN II-XII intact, oriented X3, no focal deficits Internal Medicine: Result - Labs CBC & Chem 7: 04/30/17 02:56 04/30/17 02:56 Labs: Short CBC 04/30/17 Range/Units 02:56 WBC 6.6 (4.3-11.1) K/mcL Hgb 13.5 (11.5-15.4) g/dL Hct 41.1 (35.3-44.9) % Plt Count 232 (140-400) K/mcL Neutrophils # 3.2 (1.6-8.9) K/mcL BMP 04/30/17 02:56 Sodium 133 L Potassium 4.3 Chloride 98 Carbon Dioxide 26 BUN 20 Creatinine 0.92 Glucose 371 H Calcium 9.4 - ABG Interpretation ABG results: ABG ABG pH 7.48 pH Units (7.32-7.45) H 04/28/17 20:02 ABG pCO2 37 mmHg (35-45) 04/28/17 20:02 ABG pO2 113 mmHg (85-104) H 04/28/17 20:02 ABG O2 Saturation 99 % (95-98) H 04/28/17 20:02 PT/INR, D-dimer PT 10.4 Seconds (9.4-12.1) 04/28/17 17:23 Consult Discharge Plan - Plan Instructions: Ciprofloxacin (By mouth) Additional Instructions: Please follow-up with your primary care provider within one week. Please resume your home medications. Please take your antibiotic until completed. Please participate in physical therapy and rehabilitation at [facility]. Please return for any new or worsening symptoms. Referrals: Roe Pritchard, PAC [Primary Care Provider] - Prescriptions: Ciprofloxacin [Cipro] 500 mg PO BID #6 tablet <hCun Jackson - Last Filed: 04/30/17 17:21> Date of Encounter: 04/30/17 - Constitutional Vitals: Temp Pulse Resp BP Pulse Ox 98.0 F 75 16 95/60 92 04/30/17 11:26 04/30/17 11:26 04/30/17 11:26 04/30/17 11:26 04/30/17 11:26 Internal Medicine: Result - Labs CBC & Chem 7: 04/30/17 02:56 04/30/17 02:56 Labs: Short CBC 04/30/17 Range/Units 02:56 WBC 6.6 (4.3-11.1) K/mcL Hgb 13.5 (11.5-15.4) g/dL Hct 41.1 (35.3-44.9) % Plt Count 232 (140-400) K/mcL Neutrophils # 3.2 (1.6-8.9) K/mcL BMP 04/30/17 02:56 Sodium 133 L Potassium 4.3 Chloride 98 Carbon Dioxide 26 BUN 20 Creatinine 0.92 Glucose 371 H Calcium 9.4 - ABG Interpretation ABG results: ABG ABG pH 7.48 pH Units (7.32-7.45) H 04/28/17 20:02 ABG pCO2 37 mmHg (35-45) 04/28/17 20:02 ABG pO2 113 mmHg (85-104) H 04/28/17 20:02 ABG O2 Saturation 99 % (95-98) H 04/28/17 20:02 PT/INR, D-dimer PT 10.4 Seconds (9.4-12.1) 04/28/17 17:23 - Attending Attestation I examined this patient and my medical decision-making was reviewed with the UNDERGROUND CONDUIT INSTALLER/PA/Advanced Practice Nurse/Resident Physician. I agree with the documented findings, disposition and treatment plan as described except to the extent set forth below.
--- NOTE | 2017-04-30 11:16 | Electrocardiograph Report ---
[address] [address] Test Date: 2017-04-28 Pat Name: Bina Garay Department: 102 Room: 3B45 Gender: F Yam Curer: Mendy : 1955 Requested By: Rahat Hayes Order Number: [id number] Reading MD: Ron Hwang MD Measurements Intervals Letha Rate: 65 P: 47 FL: 144 QRS: 45 QRSD: 98 T: 78 QT: 422 QTc: 434 Interpretive Statements SINUS RHYTHM WITH SINUS ARRHYTHMIA Electronically Signed On 04-30-2017 11:14:44 EDT by Ron Hwang MD
[2017-04-30 11:30] VITALS: BP 95/60
--- NOTE | 2017-04-30 13:47 | Discharge Summary ---
<Sterling Bowman - Last Filed: 04/30/17 13:44> Date of Encounter: 04/30/17 Time of Encounter: 13:44 - Discharge Diagnosis (1) Encephalopathy Priority: Primary Status: Resolved (2) Urinary tract infection Priority: Primary Status: Acute Qualifiers: Urinary tract infection type: acute cystitis Hematuria presence: without hematuria Qualified Code(s): N30.00 - Acute cystitis without hematuria (3) COPD (chronic obstructive pulmonary disease) Priority: Secondary Status: Chronic Qualifiers: COPD type: unspecified COPD Qualified Code(s): J44.9 - Chronic obstructive pulmonary disease, unspecified (4) Diabetes mellitus Priority: Secondary Status: Chronic Qualifiers: Diabetes mellitus type: type 2 Diabetes mellitus complication status: with hyperglycemia Diabetes mellitus electroencephalograph technologist insulin use: with electroencephalograph technologist use Qualified Code(s): E11.65 - Type 2 diabetes mellitus with hyperglycemia; 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 (5) HTN (hypertension) Priority: Secondary Status: Chronic Qualifiers: Hypertension type: essential hypertension Qualified Code(s): I10 - Essential (primary) hypertension (6) DVT prophylaxis Priority: Secondary Status: Acute - Discharge Medications Prescriptions: Ciprofloxacin [Cipro] 500 mg PO BID #6 tablet Home Medications: Furosemide [Lasix] 20 mg PO QAM 11/15/15 [History] Insulin ASPART [Novolog] 0 unit SQ TIDWM 11/15/15 [History] metFORMIN [Glucophage] 1,000 mg PO BID 11/15/15 [History] Albuterol Sulfate [Albuterol Inhaler] 2 puff IH Q4-6H PRN 09/01/16 [History] Aspirin [Ecotrin] 325 mg PO DAILY 10/20/16 [History] Gabapentin [Neurontin] 600 mg PO TID 10/20/16 [History] Liraglutide [Victoza 2-Harish] 1.8 mg SQ DAILY 11/04/16 [History] Lisinopril [Zestril] 40 mg PO QAM 11/04/16 [History] Budesonide/Formoterol 80/4.5 [Symbicort 80/4.5] 2 puff IH QID 02/25/17 [History ] DULoxetine [Cymbalta] 60 mg PO DAILY 02/25/17 [History] Insulin Glargine [Lantus] 20 unit SQ QAM 02/25/17 [History] ALPRAZolam [Xanax 0.5 MG Tablet] 0.5 mg PO TID PRN 04/28/17 [History] Atorvastatin [Lipitor] 40 mg PO HS 04/28/17 [History] Clopidogrel [Plavix] 75 mg PO DAILY 04/28/17 [History] Folic Acid/Multivit-Min/Lutein [Adult Multivitamin Gummies] 1 each PO DAILY [History] Insulin Glargine [Lantus] 45 unit SQ HS 04/28/17 [History] Oxygen 3 l NS HS 04/28/17 [History] Ciprofloxacin [Cipro] 500 mg PO BID #6 tablet 04/30/17 [Rx] Allergies/Adverse Reactions: Allergies fluoxetine [From Prozac] Adverse Reaction (Verified 04/28/17 19:28) ams naproxen [From Naprosyn] Adverse Reaction (Verified 10/20/16 17:19) Gastrointestinal Upset pioglitazone [From Actos] Adverse Reaction (Verified 10/20/16 17:19) Gastrointestinal Upset Date of admission: 04/29/17 16:09 Primary care physician: Roe Pritchard Discharging clinician: Sterling Bowman - Patient Status Disposition: Home Health Service Condition: Fair Functional capacity at discharge: independent ambulation Overall status at discharge: patient is progressing back to baseline - Discharge Instructions Instructions: Ciprofloxacin (By mouth) Follow Up With: Roe Pritchard PAC [Primary Care Provider] - Additional Instructions: Please follow-up with your primary care provider within one week. Please resume your home medications. Please take your antibiotic until completed. Please participate in physical therapy and rehabilitation at [facility]. Please return for any new or worsening symptoms. - Diet and Activity Activity: increase activity as tolerated Diet: diabetic diet, low salt diet Interval History: Patient seen and examined at bedside. Patient states that she feels pretty good today. She has no complaints at this time. Denies fever, chills, dysuria , abdominal pain. Hospital course: Ms. Garay is a 62 year old female with history of COPD, diabetes, coronary artery disease presented with confusion and dysuria. Patient states that her mind did not feel right and she felt weak on her feet. UA revealed urinary tract infection and cultured revealed pansensitive Klebsiella pneumonaea. The patient was started on Rocephin IV and responded quickly. The patient will be discharged home in stable condition. Patient will receive outpatient physical therapy at her adult daycare services. - Time Spent with Patient Total time spent providing and/or coordinating discharge services: - Constitutional Vitals: Temp Pulse Resp BP Pulse Ox 98.0 F 75 16 95/60 92 04/30/17 11:26 04/30/17 11:26 04/30/17 11:04/30/17 11:04/30/17 11:26 General appearance: Present: A&O X 3, no acute distress, answers questions appropriately - Respiratory Respiratory exam: Present: CTAB. Absent: rales, rhonchi, wheezes - Cardiovascular Cardiovascular exam: Present: RRR. Absent: gallop, rubs, systolic murmur - GI/Abdominal GI/Abdominal exam: Present: normal bowel sounds, soft. Absent: distended, tenderness - Extremities Exam Extremities exam: Present: warm. Absent: pedal edema, tenderness - Neurological Exam Neurological exam: Present: alert, CN II-XII intact, oriented X3, no focal deficits <Chun Jackson P - Last Filed: 04/30/17 17:21> Date of Encounter: 04/30/17 Date of admission: 04/29/17 16:09 Primary care physician: Roe Pritchard [facility] course: Ms. Garay is a 62 year old female - Time Spent with Patient Total time spent providing and/or coordinating discharge services: - Constitutional Vitals: Temp Pulse Resp BP Pulse Ox 98.0 F 75 16 95/60 92 04/30/17 11:26 04/30/17 11:26 04/30/17 11:04/30/17 11:04/30/17 11:26 - Attending Attestation I examined this patient and my medical decision-making was reviewed with the GRAIN AND YEAST PLANTS SUPERVISOR/PA/Advanced Practice Nurse/Resident Physician. I agree with the documented findings, disposition and treatment plan as described except to the extent set forth below.
--- NOTE | 2017-04-30 13:54 | Physician Discharge Referral ---
<Sterling Bowman - Last Filed: 04/30/17 13:53> Home Health/Hosp Referral Info Transfer to: Home Health Provider in Charge Post Discharge: PCP - Diagnosis (1) Encephalopathy Priority: Primary Status: Resolved (2) Urinary tract infection Priority: Primary Status: Acute (3) COPD (chronic obstructive pulmonary disease) Priority: Secondary Status: Chronic (4) Diabetes mellitus Priority: Secondary Status: Chronic (5) HTN (hypertension) Priority: Secondary Status: Chronic (6) DVT prophylaxis Priority: Secondary Status: Acute - Respiratory Orders None Smoking Cessation: Smoking cessation has been advised. For more information, call the [place] Tobacco Quit Line at 5-382-GRTF-NOW. - Diet/Nutrition Diet/Nutrition Orders: Cardiac - Activity Activity Orders: Up ad marcela - Services Needed Following services are medically necessary services: Home Health Aide, Physical Therapy (Will receive at adult daycare through [facility].) - Transfer Medications Prescriptions: Ciprofloxacin [Cipro] 500 mg PO BID #6 tablet Home Medications: Furosemide [Lasix] 20 mg PO QAM 11/15/15 [History] Insulin ASPART [Novolog] 0 unit SQ TIDWM 11/15/15 [History] metFORMIN [Glucophage] 1,000 mg PO BID 11/15/15 [History] Albuterol Sulfate [Albuterol Inhaler] 2 puff IH Q4-6H PRN 09/01/16 [History] Aspirin [Ecotrin] 325 mg PO DAILY 10/20/16 [History] Gabapentin [Neurontin] 600 mg PO TID 10/20/16 [History] Liraglutide [Victoza 2-Harish] 1.8 mg SQ DAILY 11/04/16 [History] Lisinopril [Zestril] 40 mg PO QAM 11/04/16 [History] Budesonide/Formoterol 80/4.5 [Symbicort 80/4.5] 2 puff IH QID 02/25/17 [History ] DULoxetine [Cymbalta] 60 mg PO DAILY 02/25/17 [History] Insulin Glargine [Lantus] 20 unit SQ QAM 02/25/17 [History] ALPRAZolam [Xanax 0.5 MG Tablet] 0.5 mg PO TID PRN 04/28/17 [History] Atorvastatin [Lipitor] 40 mg PO HS 04/28/17 [History] Clopidogrel [Plavix] 75 mg PO DAILY 04/28/17 [History] Folic Acid/Multivit-Min/Lutein [Adult Multivitamin Gummies] 1 each PO DAILY [History] Insulin Glargine [Lantus] 45 unit SQ HS 04/28/17 [History] Oxygen 3 l NS HS 04/28/17 [History] Ciprofloxacin [Cipro] 500 mg PO BID #6 tablet 04/30/17 [Rx] Allergies/Adverse Reactions: Allergies fluoxetine [From Prozac] Adverse Reaction (Verified 04/28/17 19:28) ams naproxen [From Naprosyn] Adverse Reaction (Verified 10/20/16 17:19) Gastrointestinal Upset pioglitazone [From Actos] Adverse Reaction (Verified 10/20/16 17:19) Gastrointestinal Upset Certification: Further, I certify that my clinical findings support that this patient is homebound (i.e. absences from home require considerable and taxing effort and are for medical reasons or judaism services or infrequently or short duration when for other reasons) because: Homebound Reason: Patient requires assistance of a person or device to safely leave home Attestation: My signature below is to certify that this patient is under my care and that I, or nurse practitioner, or a physician's anesthesiology physician assistant working with me, has a face-to -face encounter with this patient. <Chun Jackson P - Last Filed: 04/30/17 17:22> - Respiratory Orders Smoking Cessation: Smoking cessation has been advised. For more information, call the [place] Tobacco Quit Line at 8-215-ENOS-NOW. Certification: Further, I certify that my clinical findings support that this patient is homebound (i.e. absences from home require considerable and taxing effort and are for medical reasons or judaism services or infrequently or short duration when for other reasons) because: Attestation: My signature below is to certify that this patient is under my care and that I, or nurse practitioner, or a physician's anesthesiology physician assistant working with me, has a face-to -face encounter with this patient.
== END 2017-04-30 20:40 | disposition home health service (06) | DRG 463 ==
LOC: 3BNU 16:46 → EMEROO 16:46 → 3BNU 20:08
PROVIDERS: ADMIT Internal Medicine; ATTEND Nurse Practitioner Family

== ENCOUNTER 2017-07-02 14:52 | Observation (INO) ==
[2017-07-02] MEDS ORDERED: Aspirin 81 MG TAB.CHEW PO ONE (15:03)
--- NOTE | 2017-07-02 15:08 | Emergency Department Note ---
Disposition Clinical Impression: Chest pain Qualifiers: Chest pain type: unspecified Qualified Code(s): R07.9 - Chest pain, unspecified Disposition: Admitted As Inpatient Condition: Good Referrals: Sharla Decker [Primary Care Provider] - Forms: ED Satisfaction Letter Time of Disposition: 18:14 Chest Pain HPI - General Chief Complaint: ED Chest Pain Stated Complaint: Multiple Complaints Time Seen by Provider: 07/02/17 15:00 Source: patient Limitations: no limitations Vital Signs Reviewed: Yes Nursing Notes Reviewed: Yes - History of Present Illness HPI Narrative: 62-year-old with a history of diabetes, hypertension, hyperlipidemia, family history who developed chest pain about 5 AM. She states she had a stress test back in 2016 I did review that and that was a negative for acute findings. Patient has had no recent cardiac workup. She describes pain as heaviness in her chest. Pt complaint: chest pain Onset (ago): Just FUELER Duration: constant Onset: during rest Pain Location: substernal, left chest Severity scale (1-10): 10 Quality: tightness, aching, heaviness Pain Radiation: none Improves with: nothing Worsens with: nothing Associated symptoms: Reports: dyspnea Treatments prior to arrival chest pain: aspirin - Related Data Home Medications Medication Instructions Recorded Confirmed Furosemide [Lasix] 20 mg PO QAM 11/15/15 04/28/17 Insulin ASPART [Novolog] 0 unit SQ TIDWM 11/15/15 04/28/17 metFORMIN [Glucophage] 1,000 mg PO BID 11/15/15 04/28/17 Albuterol Sulfate [Albuterol 2 puff IH Q4-6H PRN 09/01/16 04/28/17 Inhaler] Aspirin [Ecotrin] 325 mg PO DAILY 10/20/16 04/28/17 Gabapentin [Neurontin] 600 mg PO TID 10/20/16 04/28/17 Liraglutide [Victoza 2-Harish] 1.8 mg SQ DAILY 11/04/16 04/28/17 Lisinopril [Zestril] 40 mg PO QAM 11/04/16 04/28/17 Budesonide/Formoterol 80/4.5 2 puff IH QID 02/25/17 04/28/17 [Symbicort 80/4.5] DULoxetine [Cymbalta] 60 mg PO DAILY 02/25/17 04/28/17 Insulin Glargine [Lantus] 20 unit SQ QAM 02/25/17 04/28/17 ALPRAZolam [Xanax 0.5 MG Tablet] 0.5 mg PO TID PRN 04/28/17 04/28/17 Atorvastatin [Lipitor] 40 mg PO HS 04/28/17 Clopidogrel [Plavix] 75 mg PO DAILY 04/28/17 04/28/17 Folic Acid/Multivit-Min/Lutein 1 each PO DAILY 04/28/17 04/28/17 [Adult Multivitamin Gummies] Insulin Glargine [Lantus] 45 unit SQ HS 04/28/17 04/28/17 Oxygen 3 l NS HS 04/28/17 04/28/17 Previous Rx's Medication Instructions Recorded Ciprofloxacin [Cipro] 500 mg PO BID #6 tablet 04/30/17 Allergies Allergy/AdvReac Type Severity Reaction Status Date / Time fluoxetine [From Prozac] AdvReac ams Verified 04/28/17 19:28 naproxen [From Naprosyn] AdvReac Gastrointestinal Verified 10/20/16 17:19 Upset pioglitazone [From Actos] AdvReac Gastrointestinal Verified 10/20/16 17:19 Upset All systems ED: reviewed and negative except as stated. Constitutional: Denies: fever, chills, weakness, weight change Eyes: Denies: eye pain, eye discharge, vision change ENT ED: Denies: ear pain, throat pain, dental pain, hearing loss, epistaxis, congestion, dysphagia Cardiovascular: Reports: chest pain, dyspnea on exertion. Denies: palpitations , edema, syncope Respiratory: Denies: cough, dyspnea, wheezes, hemoptysis, stridor Gastrointestinal: Denies: abdominal pain, nausea, vomiting, diarrhea, constipation, hematemesis, melena, hematochezia Genitourinary: Denies: dysuria, frequency, hematuria, discharge Musculoskeletal: Denies: back pain, neck pain, arthralgia, myalgia Integumentary: Denies: rash, abrasion, lesions Neurological: Denies: headache, weakness, numbness, paresthesias, confusion, abnormal gait, vertigo Psychiatric: Denies: anxiety, depression, suicidal thoughts, homicidal thoughts , auditory hallucinations, visual hallucinations Endocrine: Denies: fatigue Hematological/Lymphatic: Denies: easy bleeding, easy bruising Allergic/Immunologic: Denies: facial swelling, urticaria Chest Pain PMH - Past Medical History Medical history: Reports: arthritis, CHF, COPD, CVA, diabetes, hyperlipidemia, hypertension, TIA Surgical history: Reports: hip replacement, hysterectomy, orthopedic, other Psychiatric history: Reports: anxiety, depression DAIRY HUSBANDMAN history: Reports: bilateral tubal ligation - Social History Smoking Status: Former smoker Alcohol use: Reports: none Drug use: Reports: none Physical Exam - General Limitations: no limitations General appearance: alert, in no apparent distress - Head Head exam: atraumatic, normocephalic, normal inspection - Eye Eye exam: Present: normal appearance, PERRL, EOMI - ENT ENT exam: normal exam, normal oropharynx, mucous membranes moist - Neck Neck exam: Present: normal inspection, full ROM, trachea midline - Chest Chest inspection: Present: normal inspection, symmetric chest wall rise - Respiratory Respiratory exam: Present: normal lung sounds bilaterally - Cardiovascular Cardiovascular exam: Present: regular rate, normal rhythm, normal heart sounds - Abdominal Exam Abdominal exam: Present: soft, Non-Tender. Absent: tenderness, distention, guarding, rebound, rigidity - Extremities Exam Extremities exam: Present: normal inspection, full ROM. Absent: tenderness, pedal edema - Expanded Lower Extremity Exam Neurovascular/Tendon exam: Absent: motor deficit, sensory deficit, tendon deficit Gait: observed and normal - Back Exam Back exam: Present: normal inspection, full ROM. Absent: tenderness - Neurological Exam Neurological exam: Present: alert, oriented X3 - Psychiatric Psychiatric exam: Present: normal affect, normal mood - Skin Skin exam: Present: warm, dry, intact, normal color Course - Reevaluation(s) Reevaluation #1: 62-year-old female comes in complaining of some intermittent chest pain has multiple risk factors. Workup in the ER is negative no recent cardiac workup. Patient did have a stress test in 2016 target heart rate was 135 she achieved a heart rate of 75 on the test. Time: 18:14 - Consultations Consultation #1: Discussed with Mireya mina. Time: 18:14 Vital Signs Temperature 98 F 07/02/17 14:53 Pulse Rate 68 07/02/17 14:53 Respiratory Rate 16 07/02/17 14:53 Blood Pressure 136/75 07/02/17 14:53 O2 Sat by Pulse Oximetry 96 07/02/17 14:53 Temperature 98 F 07/02/17 14:53 Pulse Rate 56 07/02/17 18:08 Respiratory Rate 20 07/02/17 18:08 Blood Pressure 124/85 07/02/17 18:08 O2 Sat by Pulse Oximetry 98 07/02/17 18:08 Oxygen Delivery Oxygen Delivery Nasal Cannula Chest Pain - Lab Data Lab results reviewed: Yes I reviewed the patient's lab results. Result diagrams: 07/02/17 15:40 07/02/17 15:40 Lab Results 07/02/17 07/02/17 07/02/17 Range/Units 15:40 15:40 15:40 WBC 5.8 (4.3-11.1) K/mcL RBC 4.56 (3.82-4.97) M/mcL Hgb 13.7 (11.5-15.4) g/dL Hct 40.1 (35.3-44.9) % MCV 87.9 (83.0-100.0) fL MCH 30.0 (28.0-33.3) pg MCHC 34.2 (31.6-35.5) g/dL RDW 12.6 (11.5-14.5) % Plt Count 201 (140-400) K/mcL MPV 9.6 (9.4-12.4) fL Immature Gran % 0.5 (0-4) % Seg Neutrophils % 56.0 % Lymphocytes % 32.9 % Monocytes % 8.0 % Eosinophils % 2.3 % Basophils % 0.3 % Neutrophils # 3.2 (1.6-8.9) K/mcL Lymphocytes # 1.9 (0.6-4.6) K/mcL Monocytes # 0.5 (0.0-1.3) K/mcL Eosinophils # 0.1 (0.0-0.6) K/mcL Basophils # 0.0 (0.0-0.2) K/mcL PT 10.0 (9.4-12.1) Seconds INR 0.9 APTT 26.6 (26.0-36.0) Seconds Sodium 133 L (136-145) mEq/L Potassium 4.1 (3.5-4.5) mEq/L Chloride 100 (98-109) mEq/L Carbon Dioxide 24 (19-29) mEq/L BUN 12 (7-20) mg/dL Creatinine 0.76 (0.57-1.11) mg/dL Est GFR ( Amer) > 60 (> 60) Est GFR (Non-Af Amer) > 60 (> 60) BUN/Creatinine Ratio 16 (6-26) Glucose 362 H (70-99) mg/dL Calculated Osmolality 290 (280-300) Calcium 8.9 (8.6-10.8) mg/dL Troponin I (0-0.03) ng/mL 07/02/17 Range/Units 15:40 WBC (4.3-11.1) K/mcL RBC (3.82-4.97) M/mcL Hgb (11.5-15.4) g/dL Hct (35.3-44.9) % MCV (83.0-100.0) fL MCH (28.0-33.3) pg MCHC (31.6-35.5) g/dL RDW (11.5-14.5) % Plt Count (140-400) K/mcL MPV (9.4-12.4) fL Immature Gran % (0-4) % Seg Neutrophils % % Lymphocytes % % Monocytes % % Eosinophils % % Basophils % % Neutrophils # (1.6-8.9) K/mcL Lymphocytes # (0.6-4.6) K/mcL Monocytes # (0.0-1.3) K/mcL Eosinophils # (0.0-0.6) K/mcL Basophils # (0.0-0.2) K/mcL PT (9.4-12.1) Seconds INR APTT (26.0-36.0) Seconds Sodium (136-145) mEq/L Potassium (3.5-4.5) mEq/L Chloride (98-109) mEq/L Carbon Dioxide (19-29) mEq/L BUN (7-20) mg/dL Creatinine (0.57-1.11) mg/dL Est GFR ( Amer) (> 60) Est GFR (Non-Af Amer) (> 60) BUN/Creatinine Ratio (6-26) Glucose (70-99) mg/dL Calculated Osmolality (280-300) Calcium (8.6-10.8) mg/dL Troponin I 0.00 (0-0.03) ng/mL - Radiology Data Radiology results reviewed: Yes I reviewed the patient's radiology results. Chest X-Ray 07/02/17 15:03 IMPRESSION: No acute cardiopulmonary disease D/ / Yassine Velez MD / Yassine Velez MD Interpreting Provider: Yassine Velez MD - EKG Data EKG attestation: Yes I reviewed and interpreted this EKG. EKG shows normal: sinus rhythm Rate: normal Rhythm: NSR Interpretation: no acute changes Heart Score - Score History: Moderately Suspicious EKG: Normal Age: 45-65 Risk Factors: Equal/Greater than 3 risk factor or history of atherosclerotic disease Troponin: Less than normal limit HEART Score Total: 4
[2017-07-02 15:59] LABS: Basophils % 0.3 %; Eosinophils # 0.1 K/mcL (0.0-0.6); Eosinophils % 2.3 %; Hematocrit 40.1 % (35.3-44.9); Hemoglobin 13.7 g/dL (11.5-15.4); Immature Granulocytes % 0.5 % (0-4); Lymphocytes # 1.9 K/mcL (0.6-4.6); Lymphocytes % 32.9 %; Mean Corpuscular HGB Conc 34.2 g/dL (31.6-35.5); Mean Corpuscular Volume 87.9 fL (83.0-100.0); Mean Platelet Volume 9.6 fL (9.4-12.4); Monocytes # 0.5 K/mcL (0.0-1.3); Neutrophils # 3.2 K/mcL (1.6-8.9); Platelet Count 201 K/mcL (140-400); Red Blood Count 4.56 M/mcL (3.82-4.97); Red Cell Distribution Width 12.6 % (11.5-14.5)
[2017-07-02 16:05] LABS: INR 0.9
[2017-07-02 16:07] LABS: Activated Partial Thrombo Time 26.6 Seconds (26.0-36.0)
[2017-07-02 16:12] LABS: BUN/Creatinine Ratio 16 (6-26); Blood Urea Nitrogen 12 mg/dL (7-20); Calcium 8.9 mg/dL (8.6-10.8); Carbon Dioxide 24 mEq/L (19-29); Chloride 100 mEq/L (98-109); Glucose 362 mg/dL (70-99); Osmolality,Calculated 290 (280-300); Potassium 4.1 mEq/L (3.5-4.5); Sodium 133 mEq/L (136-145); eGFR For African Americans > 60 (> 60); eGFR For Non-African Americans > 60 (> 60)
[2017-07-02] MEDS ORDERED: Naloxone 0.4 MG/ML INJ IVP PRN (18:02)
[2017-07-02] MEDS ORDERED: Ondansetron 4 MG/2 ML VIAL IVP PRN (18:02)
[2017-07-02] MEDS ORDERED: Acetaminophen 325 MG TABLET PO PRN (18:02)
[2017-07-02] MEDS ORDERED: *HR* Dextrose 50 % in Water (Syg) 50 ML SYRINGE IVP PRN (18:05)
[2017-07-02] MEDS ORDERED: Dextrose Gel 15 GM PO PRN ×2 (18:05)
[2017-07-02] MEDS ORDERED: D5% in Water 1,000 ML IVC PRN (18:05)
[2017-07-02 18:36] LABS: Hemoglobin A1C 12.6 %
--- NOTE | 2017-07-02 18:40 | Internal Med History&Physical ---
Date of Encounter: 07/02/17 Time of Encounter: 18:37 Assessment and Plan (1) Chest pain Current visit: No Status: Acute presented with chest pain that woke her 0500 morning of presentation. Received ASA on arrival, no chest pain on exam. No known CAD, last stress test 2015 ( unable to achieve adequate heart rate at that time). Initial troponin negative , EKG without acute ST changes. Cycle troponin, check echo, stress test. Suspect stress/anxiety contributing to symptoms however with multiple risk factors consult cardiology for further recommendations (consult will need to be called in). Continue ASA. Qualifiers: Chest pain type: other chest pain Qualified Code(s): R07.89 - Other chest pain; R07.8 - Other chest pain (2) COPD (chronic obstructive pulmonary disease) Current visit: No Status: Chronic per hx. wears O2 at at bedtime at home. No evidence of exacerbation on exam. Chest x-ray nonacute. Continue home inhalers. Qualifiers: COPD type: unspecified COPD Qualified Code(s): J44.9 - Chronic obstructive pulmonary disease, unspecified (3) Diabetes mellitus Current visit: No Status: Chronic uncontrolled, Hgb A1c 12. Holding oral hypoglycemics. Continue home long- acting insulin. Add SSI. Monitor blood sugar and titrate PRN Qualifiers: Diabetes mellitus type: type 2 Diabetes mellitus complication status: with hyperglycemia Diabetes mellitus [facility] insulin use: with [facility] use Qualified Code(s): E11.65 - Type 2 diabetes mellitus with hyperglycemia; Z79.4 - continuous churn butterm[employer] (current) use of insulin (4) HTN (hypertension) Current visit: No Status: Chronic per hx. BP controlled in ED. Continue home BP medications. Monitor BP and titrate PRN Qualifiers: Hypertension type: essential hypertension Qualified Code(s): I10 - Essential (primary) hypertension (5) Depression Current visit: No Status: Chronic per hx with anxiety. Patient reports increased stressors at home, this could be contributing to chest pain. Continue home medication regimen. Qualifiers: Depression Type: unspecified Qualified Code(s): F32.9 - Major depressive disorder, single episode, unspecified (6) DVT prophylaxis Current visit: No [facility]: [facility] - H&P: HPI Chief complaint: chest pain Admitted From: Home Plans for Post Hospital Care: Home History of present illness: Ms. Garay is a 62 year old female with PMH HTN, diabetes, COPD, depression and migraines who presented to [facility] on 07/02/2017 with complaints of chest pain. She was placed in observation status for ACS rule out. Information obtained from chart review and patient report. Patient reports abrupt onset of chest pain at 5:00 this morning that woke her from sleep. Chest pain was localized to left breast and radiated to her back. She initially stated it felt like someone was massaging her heart. Sensation then turned into a pressure and radiated down left arm. Chest pain has been intermittent and comes and goes nothing seems to make better or worse. She also reports a headache, says she has history of migraines and this is a classic migraine for her. No chest pain or shortness of breath all my exam. A 10 point review of system was obtained and negative unless otherwise noted above. Past Med Surg Social Fam HX - Past Medical History Medical history: arthritis, CHF, COPD, CVA, diabetes, hyperlipidemia, hypertension, TIA Psychiatric history: anxiety, depression - Past Surgical History Surgical History: hip replacement, hysterectomy, orthopedic, other - Social History Smoking Status: Former smoker Smokeless Tobacco Status: No Alcohol use: none Drug use: none - Family History Mother Living Status: Still Living Hx Family Cardiac Disorders: Yes Hx Family Endocrine Disorder: Yes (diabetes) Father Living Status: Hx Family Cardiac Disorders: Yes Hx Family Respiratory Disorders: Yes Hx Family Cancer: Yes (Lung) Hx Family GI Disorders: No Hx Family Endocrine Disorder: Yes Hx Family Neuromuscular Disorders: No Hx Family Neurologic Disorders: No Hx Family HEENT Disorders: No Hx Family Autoimmune Disorders: No Internal Medicine - H&P: Meds Furosemide [Lasix] 20 mg PO QAM 11/15/15 [History] Insulin ASPART [Novolog] 0 unit SQ TIDWM 11/15/15 [History] metFORMIN [Glucophage] 1,000 mg PO BID 11/15/15 [History] Albuterol Sulfate [Albuterol Inhaler] 2 puff IH Q4-6H PRN 09/01/16 [History] Aspirin [Ecotrin] 325 mg PO DAILY 10/20/16 [History] Gabapentin [Neurontin] 600 mg PO TID 10/20/16 [History] Liraglutide [Victoza 2-Harish] 1.8 mg SQ DAILY 11/04/16 [History] Lisinopril [Zestril] 40 mg PO QAM 11/04/16 [History] Budesonide/Formoterol 80/4.5 [Symbicort 80/4.5] 2 puff IH QID 02/25/17 [History ] DULoxetine [Cymbalta] 60 mg PO DAILY 02/25/17 [History] Insulin Glargine [Lantus] 20 unit SQ QAM 02/25/17 [History] ALPRAZolam [Xanax 0.5 MG Tablet] 0.5 mg PO TID PRN 04/28/17 [History] Atorvastatin [Lipitor] 40 mg PO HS 04/28/17 [History] Clopidogrel [Plavix] 75 mg PO DAILY 04/28/17 [History] Folic Acid/Multivit-Min/Lutein [Adult Multivitamin Gummies] 1 each PO DAILY [History] Insulin Glargine [Lantus] 45 unit SQ HS 04/28/17 [History] Oxygen 3 l NS HS 04/28/17 [History] Ciprofloxacin [Cipro] 500 mg PO BID #6 tablet 04/30/17 [Rx] 3 Allergy/AdvReac Type Severity Reaction Status Date / Time fluoxetine [From Prozac] AdvReac ams Verified 04/28/17 19:28 naproxen [From Naprosyn] AdvReac Gastrointestinal Verified 10/20/16 17:19 Upset pioglitazone [From Actos] AdvReac Gastrointestinal Verified 10/20/16 17:19 Upset All Systems PM: A 10-system review of systems was performed and is negative for pertinent findings except as documented above in the HPI. - Constitutional Constitutional: no chills, no fever(s), no night sweats - EENT Eyes: no change in vision, no discharge, no pain, no photophobia Ears: no ear discharge, no ear pain, no tinnitus Nose, mouth and throat: no dysphagia, no nasal discharge, no neck pain, no sore throat - Cardiovascular Cardiovascular ROS IM: chest pain, no diaphoresis, no dyspnea, no lightheadedness, no palpitations, no syncope - Respiratory Respiratory: no cough, no dyspnea, no wheezing, no excessive phlegm production - Gastrointestinal Gastrointestinal: no abdominal pain, no diarrhea, no hematemesis, no hematochezia, no melena, no nausea, no vomiting - Genitourinary Genitourinary: no change in urinary stream, no dysuria, no flank pain, no hematuria - Musculoskeletal Musculoskeletal ROS IM: no numbness, no tingling - Integumentary Integumentary IM: no rash, no unusual bruising - Neurological Neurological ROS: headache(s), no confusion, no convulsions, no focal weakness, no numbness, no tingling, no tremor(s) - Hematologic/Lymphatic Hematologic/Lymphatic: no easy bruising - Constitutional Vitals: Temp Pulse Resp BP Pulse Ox 98 F 56 20 124/85 98 07/02/17 14:53 07/02/17 18:08 07/02/17 18:08 07/02/17 18:08 07/02/17 18:08 General appearance: Present: A&O X 3, morbidly obese, no acute distress - Head Head exam: Present: atraumatic, normocephalic - Eye Eye exam: Present: PERRL, conjuntiva pink, sclera anicteric Pupils: Present: PERRL - Neck Neck exam general surgery: Present: supple, trachea midline. Absent: lymphadenopathy - Respiratory Respiratory exam: Present: CTAB. Absent: accessory muscle use, rales, rhonchi, wheezes - Cardiovascular Cardiovascular exam: Present: RRR, +S1, +S2, systolic murmur. Absent: diastolic murmur, gallop, rubs - GI/Abdominal GI/Abdominal exam: Present: normal bowel sounds, soft, no peritoneal signs. Absent: distended, tenderness - Extremities Exam Extremities exam: Present: warm, radial pulses palpable and symmetrical. Absent : calf tenderness, cyanotic, pedal edema - Neurological Exam Neurological exam: Present: CN II-XII intact, oriented X3, no focal deficits. Absent: pronater drift, facial droop, speech deficit - Skin Skin exam: Present: dry, intact Internal Med - H&P Results - Labs CBC & Chem 7: 07/02/17 15:40 07/02/17 15:40 Labs: Short CBC 07/02/17 Range/Units 15:40 WBC 5.8 (4.3-11.1) K/mcL Hgb 13.7 (11.5-15.4) g/dL Hct 40.1 (35.3-44.9) % Plt Count 201 (140-400) K/mcL Neutrophils # 3.2 (1.6-8.9) K/mcL BMP 07/02/17 15:40 Sodium 133 L Potassium 4.1 Chloride 100 Carbon Dioxide 24 BUN 12 Creatinine 0.76 Glucose 362 H Calcium 8.9 Cardiac Enzymes 07/02/17 Range/Units 15:40 Troponin I 0.00 (0-0.03) ng/mL - Impressions ITS Impressions Chest X-Ray 07/02/17 15:03 IMPRESSION: No acute cardiopulmonary disease D/ / Yassine Velez MD / Yassine Velez MD Interpreting Provider: Yassine Velez MD
[2017-07-02] MEDS ORDERED: Metoclopramide 10 MG/2 ML VIAL IVP ONE (19:23)
[2017-07-02] MEDS ORDERED: Ketorolac 30 MG/ML VIAL IVP ONE (19:23)
[2017-07-02] MEDS: Gabapentin 300 MG CAPSULE PO SCH (20:02)
[2017-07-02] MEDS: Insulin LISPRO 300 UNITS/3 ML VIAL SQ SCH (20:50)
[2017-07-02] MEDS: Insulin DETEMIR 100 UNIT/ML X5UNITS SQ SCH (20:51)
[2017-07-02] MEDS: ALPRAZolam 0.5 MG TABLET PO PRN (20:51)
[2017-07-02] MEDS ORDERED: Budesonide/Formoterol 80/4.5 MDI IH SCH (21:00)
[2017-07-03 04:45] LABS: Hematocrit 40.6 % (35.3-44.9); Hemoglobin 13.3 g/dL (11.5-15.4); Mean Corpuscular HGB Conc 32.8 g/dL (31.6-35.5); Mean Corpuscular Hemoglobin 29.4 pg (28.0-33.3); Mean Corpuscular Volume 89.6 fL (83.0-100.0); Mean Platelet Volume 9.8 fL (9.4-12.4); Platelet Count 234 K/mcL (140-400); Red Blood Count 4.53 M/mcL (3.82-4.97); Red Cell Distribution Width 12.5 % (11.5-14.5)
[2017-07-03 05:01] LABS: Alanine Aminotransferase 15 Units/L (0-55); Albumin 3.1 g/dL (3.5-5.0); Alkaline Phosphatase 100 Units/L (38-126); Aspartate Amino Transferase 19 Units/L (5-34); BUN/Creatinine Ratio 18 (6-26); Bilirubin,Total 0.4 mg/dL (0.2-1.2); Blood Urea Nitrogen 16 mg/dL (7-20); Calcium 9.1 mg/dL (8.6-10.8); Carbon Dioxide 30 mEq/L (19-29); Chloride 101 mEq/L (98-109); Chol/HDL Ratio 6.8 (0-4.9); Cholesterol 260 mg/dL (< 200); Globulin 3.2 g/dL (2.4-3.5); Glucose 312 mg/dL (70-99); HDL Cholesterol 38 mg/dL (40-59); LDL Cholesterol,Calculated 181 mg/dL (0-99); Osmolality,Calculated 297 (280-300); Potassium 4.3 mEq/L (3.5-4.5); Sodium 137 mEq/L (136-145); Total Protein 6.3 g/dL (6.0-8.3); Triglycerides 206 mg/dL (< 150); eGFR For African Americans > 60 (> 60); eGFR For Non-African Americans > 60 (> 60)
[2017-07-03] MEDS: *HR* Enoxaparin 40 MG/0.4 ML SYRINGE SQ SCH (06:00)
[2017-07-03] MEDS ORDERED: Regadenoson 0.4 MG/5 ML SYRINGE IVP ONE (06:19)
[2017-07-03] MEDS ORDERED: Budesonide/Formoterol 80/4.5 MDI IH SCH (10:00)
[2017-07-03] MEDS: Insulin LISPRO 300 UNITS/3 ML VIAL SQ SCH ×4 (10:09→20:32)
[2017-07-03] MEDS: Lisinopril 20 MG TABLET PO SCH (10:09)
[2017-07-03] MEDS: Gabapentin 300 MG CAPSULE PO SCH ×3 (10:09→20:33)
[2017-07-03] MEDS: Aspirin Enteric Coated 325 MG Tablet PO SCH (10:10)
[2017-07-03] MEDS: Furosemide 20 MG TABLET PO SCH (10:10)
[2017-07-03] MEDS ORDERED: traMADol 50 MG TABLET PO ONE ×2 (10:20→21:29)
[2017-07-03] MEDS: Insulin DETEMIR 100 UNIT/ML X5UNITS SQ SCH ×2 (10:29→20:32)
--- NOTE | 2017-07-03 11:10 | Internal Med Progress Note ---
Date of Encounter: 07/03/17 Time of Encounter: 10:50 - Assessment and plan (1) Chest pain Current Visit: Yes Status: Acute Assessment and plan: Pt denies chest pain at this time, other than when medication was administered for stress test. Pt has completed first day of 2 day stress test. Troponins negative, chest xray negative, echo: LVEF 65%, normal LV chanber size , wall thickness and function. Pt reports increased stress recently, chest pain could be related to increased stress. Continue telemetry Stress test pending Monitor labs and vitals Qualifiers: Chest pain type: other chest pain Qualified Code(s): R07.89 - Other chest pain; R07.8 - Other chest pain (2) Headache Current Visit: No Status: Acute Assessment and plan: Pt reports chronic headaches, states that she has migraines and normally takes tylenol, but they don't help. She denies vision changes, pain is in occiput and post neck. Posterior neck tender to palpation. She denies n/v, dizziness. Onset 2 days ago. Pt states that her headache is triggered by stress. She states that she has stress over financial problems and her living situation since she is living with her son. Flexeril 10mg po x 1, check for effectiveness Qualifiers: Headache type: tension-type Headache chronicity pattern: acute headache Intractability: not intractable Qualified Code(s): G44.209 - Tension-type headache, unspecified, not intractable (3) Morbid obesity with BMI of 40.0-44.9, adult Current Visit: Yes Status: Acute Assessment and plan: Chronic. Lifestyle changes. (4) COPD (chronic obstructive pulmonary disease) Current Visit: Yes Status: Chronic Assessment and plan: No acute exacerbation. Pt wears 3L 02 at night. Continue 02 at night and prn during the day, titrate as needed to maintain sats >92%. Chest xray negative, continue home medications. Qualifiers: COPD type: unspecified COPD Qualified Code(s): J44.9 - Chronic obstructive pulmonary disease, unspecified (5) Diabetes mellitus Current Visit: No Status: Chronic Assessment and plan: Uncontrolled. A1c 12. Continue SSI, diabetic diet, accuchecks achs Qualifiers: Diabetes mellitus type: type 2 Diabetes mellitus complication status: with hyperglycemia Diabetes mellitus custodial insulin use: with custodial use Qualified Code(s): E11.65 - Type 2 diabetes mellitus with hyperglycemia; Z79.4 - halfway (current) use of insulin (6) Hyperlipidemia Current Visit: No Status: Chronic Assessment and plan: Lipid panel elevated. Pt already takes Lipitor 40mg po daily. Qualifiers: Hyperlipidemia type: unspecified Qualified Code(s): E78.5 - Hyperlipidemia , unspecified (7) HTN (hypertension) Current Visit: Yes Status: Chronic Assessment and plan: Well controlled, continue home medications. Qualifiers: Hypertension type: essential hypertension Qualified Code(s): I10 - Essential (primary) hypertension (8) DVT prophylaxis Current Visit: Yes Status: Acute Assessment and plan: Lovenox SQ (9) Weakness Current Visit: Yes Status: Acute Assessment and plan: Pt reports BLE weakness over the last week or so. She states that even with her walker that she is weak and having difficulty walking more than a few feet. She denies decrease in overall activity that would cause debility, no cough, n/v/d, dizziness. Labs WNL, CXR negative. Urine ordered and pending. PT has requested PT and OT, consult in and pending. - Time Spent With Patient less than 15 minutes - Constitutional Vitals: Temp Pulse Resp BP Pulse Ox 98.2 F 59 15 100/62 97 07/03/17 11:04 07/03/17 11:04 07/03/17 11:04 07/03/17 11:04 07/03/17 11:04 General appearance: Present: A&O X 3, morbidly obese, pleasant, no acute distress, answers questions appropriately - Head Head exam: Present: atraumatic, normal inspection, normocephalic - Eye Eye exam: Present: normal appearance, conjuntiva pink - ENT ENT exam: Present: mucous membranes moist, normal exam, normal external ear exam - Neck Neck exam general surgery: Present: normal inspection, supple, trachea midline. Absent: lymphadenopathy, tenderness - Respiratory Respiratory exam: Present: decreased breath sounds, CTAB. Absent: chest wall tenderness, rales, respiratory distress, rhonchi, stridor, wheezes - Cardiovascular Cardiovascular exam: Present: RRR, +S1, +S2. Absent: diastolic murmur, systolic murmur - GI/Abdominal GI/Abdominal exam: Present: distended, normal bowel sounds, soft. Absent: hepatomegaly, tenderness - Extremities Exam Extremities exam: Present: normal inspection, warm, radial pulses palpable and symmetrical. Absent: pedal edema, tenderness - Neurological Exam Neurological exam: Present: alert, oriented X3, no focal deficits. Absent: facial droop, speech deficit - Expanded Neurological Exam Neurological exam expanded: Present: protecting the airway. Absent: ataxia Patient oriented to: Present: person, place, time Speech: Absent: expressive aphasia, garbled Coma Scale Eye Opening: Spontaneous Coma Scale Motor Response: Obeys Commands Coma Scale Verbal Response: Oriented Coma Scale Total: 15 - Skin Skin exam: Present: dry, intact, normal color, warm. Absent: rash Internal Medicine: Result - Labs CBC & Chem 7: 07/03/17 03:52 07/03/17 03:52 Labs: Short CBC 07/03/17 Range/Units 03:52 WBC 5.0 (4.3-11.1) K/mcL Hgb 13.3 (11.5-15.4) g/dL Hct 40.6 (35.3-44.9) % Plt Count 234 (140-400) K/mcL BMP 07/03/17 03:52 Sodium 137 Potassium 4.3 Chloride 101 Carbon Dioxide 30 H BUN 16 Creatinine 0.91 Glucose 312 H Calcium 9.1 Cardiac Enzymes 07/03/17 Range/Units 03:52 Troponin I 0.00 (0-0.03) ng/mL Liver Function 07/03/17 Range/Units 03:52 Total Bilirubin 0.4 (0.2-1.2) mg/dL AST 19 (5-34) Units/L ALT 15 (0-55) Units/L Alkaline Phosphatase 100 (38-126) Units/L Albumin 3.1 L (3.5-5.0) g/dL - ABG Interpretation ABG results: PT/INR, D-dimer PT 10.0 Seconds (9.4-12.1) 07/02/17 15:40 Consult Discharge Plan - Plan Referrals: Sharla Decker [Primary Care Provider] -
[2017-07-03] MEDS: ALPRAZolam 0.5 MG TABLET PO PRN ×2 (11:29→17:35)
[2017-07-03 14:24] LABS: Bilirubin,Urine Negative (Negative); Blood,Urine Negative (Negative); Color,Urine Yellow (Yellow); Glucose,Urine (UA) >=1000 mg/dL (Normal); Ketones,Urine Negative (Negative); Leukocyte Esterase,Urine Small (Negative); Nitrite,Urine Positive (Negative); Protein,Urine Negative (Neg-Trace); Specific Gravity,Urine 1.026 (1.010-1.025); Urobilinogen,Urine Normal (Normal)
[2017-07-03 14:26] LABS: Bacteria,Urine Many per hpf (None-Few); Hyaline Casts,Urine None Seen per lpf (None-Few); RBC,Urine 0-3 per hpf (0-3); Squamous Epithelial Cell,Urine Many per lpf (None-Few); WBC,Urine 15-30 per hpf (0-3)
[2017-07-03 14:33] LABS: Clarity,Urine Clear (Clear)
[2017-07-03] MEDS ORDERED: traMADol 50 MG TABLET PO PRN ×2 (17:04→21:29)
[2017-07-03] MEDS: Budesonide/Formoterol 80/4.5 MDI IH SCH (21:17)
[2017-07-04] MEDS: *HR* Enoxaparin 40 MG/0.4 ML SYRINGE SQ SCH (05:18)
[2017-07-04] MEDS: traMADol 50 MG TABLET PO PRN ×2 (08:47→13:36)
[2017-07-04] MEDS: Gabapentin 300 MG CAPSULE PO SCH ×3 (08:47→20:33)
[2017-07-04] MEDS: Lisinopril 20 MG TABLET PO SCH (08:47)
[2017-07-04] MEDS: Insulin LISPRO 300 UNITS/3 ML VIAL SQ SCH ×4 (08:47→20:33)
[2017-07-04] MEDS: Furosemide 20 MG TABLET PO SCH (08:48)
[2017-07-04] MEDS: ALPRAZolam 0.5 MG TABLET PO PRN ×2 (08:48→14:18)
[2017-07-04] MEDS: Aspirin Enteric Coated 325 MG Tablet PO SCH (08:48)
[2017-07-04] MEDS: Insulin DETEMIR 100 UNIT/ML X5UNITS SQ SCH ×2 (08:55→20:33)
[2017-07-04] MEDS: Budesonide/Formoterol 80/4.5 MDI IH SCH ×2 (11:12→19:55)
--- NOTE | 2017-07-04 13:17 | Internal Med Progress Note ---
Date of Encounter: 07/04/17 Time of Encounter: 11:45 - Assessment and plan (1) Chest pain Current Visit: Yes Status: Acute Assessment and plan: Pt denies chest pain again today. Stress test has been completed, results not available at this time. Troponins negative, chest xray negative, echo: LVEF 65%, normal LV chanber size , wall thickness and function. Pt reports increased stress recently, chest pain could be related to increased stress. Continue telemetry Stress test pending Monitor labs and vitals Qualifiers: Chest pain type: other chest pain Qualified Code(s): R07.89 - Other chest pain; R07.8 - Other chest pain (2) Headache Current Visit: No Status: Acute Assessment and plan: Patient reports same headache today. She had a negative head CT in April,. Neck and occiput remained tender today. Continue with pain medication. She has no focal deficits, no nausea, no vomiting, no vision changes, no focal neurological deficits. Qualifiers: Headache type: tension-type Headache chronicity pattern: acute headache Intractability: not intractable Qualified Code(s): G44.209 - Tension-type headache, unspecified, not intractable (3) Morbid obesity with BMI of 40.0-44.9, adult Current Visit: Yes Status: Acute Assessment and plan: Chronic. Lifestyle changes. (4) COPD (chronic obstructive pulmonary disease) Current Visit: Yes Status: Chronic Assessment and plan: No acute exacerbation. Pt wears 3L 02 at night. Continue 02 at night and prn during the day, titrate as needed to maintain sats >92%. Chest xray negative, continue home medications. Lungs are clear and diminished today. No wheezing, rhonchi, Rales, stridor, no respiratory distress. Qualifiers: COPD type: unspecified COPD Qualified Code(s): J44.9 - Chronic obstructive pulmonary disease, unspecified (5) Diabetes mellitus Current Visit: No Status: Chronic Assessment and plan: Uncontrolled. A1c 12. Continue SSI, diabetic diet, accuchecks achs. Accuchecks > 300mg/dl. Will increase to high dose coverage. 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 Pt already takes Lipitor 40mg po daily. Qualifiers: Hyperlipidemia type: unspecified Qualified Code(s): E78.5 - Hyperlipidemia , unspecified (7) HTN (hypertension) Current Visit: Yes Status: Chronic Assessment and plan: Well controlled, continue home medications. Qualifiers: Hypertension type: essential hypertension Qualified Code(s): I10 - Essential (primary) hypertension (8) DVT prophylaxis Current Visit: Yes Status: Acute Assessment and plan: Lovenox SQ (9) Weakness Current Visit: Yes Status: Acute Assessment and plan: Pt reports BLE weakness over the last week or so. She states that even with her walker that she is weak and having difficulty walking more than a few feet. She denies decrease in overall activity that would cause debility, no cough, n/v/d, dizziness. Labs WNL, CXR negative. Urine ordered and pending. PT has requested PT and OT, consult in and pending. Most likely due to a combination of physical deconditioning and UTI. Pt is being treated with Rocephin, final culture and sensitivity are still pending. PT and OT have been consulted. (10) UTI (urinary tract infection) Current Visit: No Status: Acute Assessment and plan: Patient reports weakness, today she reports dysuria and increased frequency. Urinalysis positive for nitrites, leukocyte esterase, bacteria, initial culture shows Escherichia coli. She is being treated with Rocephin. Final culture and sensitivity pending. Qualifiers: Urinary tract infection type: acute cystitis Hematuria presence: without hematuria Qualified Code(s): N30.00 - Acute cystitis without hematuria - Time Spent With Patient less than 15 minutes - Subjective Interval history: Patient was seen and assessed at bedside at 11:45 AM. She reports another headache today. She is resting quietly in a dark room. She denies any nausea or vomiting and states that this is the same headache that she has had past. Is not sudden onset or thunderclap. Patient reports that she is having dysuria when questioned, her urine was positive and she is being started on antibiotic. She also reports right knee pain that she has had for several years, she states that she has seen Dr. Wade for this and he has recommended a knee replacement, however she has not followed up for this. She has adequate range of motion of the there is no deformity patella is stable. She reports pain to lateral and medial sides of the patella, worse with weightbearing. There is no redness, edema or warmth to the joint. - Constitutional Vitals: Temp Pulse Resp BP Pulse Ox 97.5 F L 64 17 109/68 93 07/04/17 11:59 07/04/17 11:59 07/04/17 11:59 07/04/17 11:59 07/04/17 11:59 General appearance: Present: disheveled, A&O X 3, morbidly obese, pleasant, no acute distress, answers questions appropriately - Head Head exam: Present: atraumatic, normal inspection, normocephalic - Eye Eye exam: Present: normal appearance, conjuntiva pink, sclera anicteric - Neck Neck exam general surgery: Present: tenderness, supple, trachea midline. Absent : lymphadenopathy - Respiratory Respiratory exam: Present: CTAB. Absent: accessory muscle use, rales, rhonchi, wheezes - Cardiovascular Cardiovascular exam: Present: RRR, +S1, +S2. Absent: diastolic murmur, gallop, rubs, systolic murmur - GI/Abdominal GI/Abdominal exam: Present: normal bowel sounds, soft. Absent: distended, tenderness - Extremities Exam Extremities exam: Present: normal inspection, warm, radial pulses palpable and symmetrical. Absent: calf tenderness, cyanotic, pedal edema, tenderness - Neurological Exam Neurological exam: Present: alert, oriented X3, no focal deficits. Absent: facial droop, speech deficit - Skin Skin exam: Present: dry, intact, normal color, warm Internal Medicine: Result - Labs CBC & Chem 7: 07/03/17 03:52 07/03/17 03:52 Labs: Urine 07/03/17 Range/Units 14:00 Urine Color Yellow (Yellow) Urine Clarity Clear (Clear) Urine pH 6.0 (5.0-8.0) pH Units Ur Specific [place] 1.026 H (1.010-1.025) Urine Protein Negative (Neg-Trace) mg/dL Urine Glucose (UA) >=1000 H (Normal) mg/dL - ABG Interpretation ABG results: PT/INR, D-dimer PT 10.0 Seconds (9.4-12.1) 07/02/17 15:40 Consult Discharge Plan - Plan Referrals: Sharla Decker [Primary Care Provider] -
[2017-07-05] MEDS: *HR* Enoxaparin 40 MG/0.4 ML SYRINGE SQ SCH (06:11)
[2017-07-05 07:55] LABS: BUN/Creatinine Ratio 20 (6-26); Blood Urea Nitrogen 17 mg/dL (7-20); Carbon Dioxide 27 mEq/L (19-29); Chloride 101 mEq/L (98-109); Glucose 306 mg/dL (70-99); Osmolality,Calculated 293 (280-300); Potassium 4.5 mEq/L (3.5-4.5); Sodium 135 mEq/L (136-145); eGFR For African Americans > 60 (> 60); eGFR For Non-African Americans > 60 (> 60)
[2017-07-05] MEDS: Budesonide/Formoterol 80/4.5 MDI IH SCH ×2 (08:08→22:30)
[2017-07-05] MEDS: Insulin LISPRO 300 UNITS/3 ML VIAL SQ SCH ×3 (09:04→21:04)
[2017-07-05] MEDS: Furosemide 20 MG TABLET PO SCH (09:05)
[2017-07-05] MEDS: Insulin DETEMIR 100 UNIT/ML X5UNITS SQ SCH ×2 (09:05→21:03)
[2017-07-05] MEDS: traMADol 50 MG TABLET PO PRN ×2 (09:05→17:50)
[2017-07-05] MEDS: Gabapentin 300 MG CAPSULE PO SCH ×3 (09:05→21:03)
[2017-07-05] MEDS: ALPRAZolam 0.5 MG TABLET PO PRN ×2 (09:05→17:50)
[2017-07-05] MEDS: Sulfamethoxazole/Trimeth DS 1 EACH TABLET PO SCH ×2 (09:05→21:03)
[2017-07-05] MEDS: Lisinopril 20 MG TABLET PO SCH (09:06)
[2017-07-05] MEDS: Aspirin Enteric Coated 325 MG Tablet PO SCH (09:06)
--- NOTE | 2017-07-05 09:45 | Internal Med Progress Note ---
Date of Encounter: 07/05/17 Time of Encounter: 07:55 - Assessment and plan (1) Chest pain Current Visit: Yes Status: Acute Assessment and plan: Denies chest pain, SOB, diaphoresis today. Stress test negative for ischemia or infarct, gated EF 72%, perfusion defect consistent with artifact. Echo LVEF 65% with normal LV and normal wall motion. Continue telemetry Pain control as needed. Qualifiers: Chest pain type: other chest pain Qualified Code(s): R07.89 - Other chest pain; R07.8 - Other chest pain (2) Headache Current Visit: No Status: Acute Assessment and plan: Patient reports same headache today. She had a negative head CT in April,. Neck and occiput remained tender to palpation today. Continue with pain medication. She has no focal deficits, no nausea, no vomiting, no vision changes, no focal neurological deficits. Qualifiers: Headache type: tension-type Headache chronicity pattern: acute headache Intractability: not intractable Qualified Code(s): G44.209 - Tension-type headache, unspecified, not intractable (3) Diabetes mellitus Current Visit: No Status: Chronic Assessment and plan: Uncontrolled. A1c 12. Continue SSI, diabetic diet, accuchecks achs. Accuchecks > 300mg/dl. SSI at high dose coverage. 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 She is being treated with Bactrim, susceptible on sentivity. Qualifiers: Urinary tract infection type: acute cystitis Hematuria presence: without hematuria Qualified Code(s): N30.00 - Acute cystitis without hematuria (5) Weakness Current Visit: Yes Status: Acute Assessment and plan: Most likely due to a combination of physical deconditioning and UTI. Pt is being treated with Bactrim, final culture E. coli. PT recommended skilled PT services at SNF. Pt going to [facility], bed may be available Tues, 2 days from now. Continue PT and up to chair tid (6) COPD (chronic obstructive pulmonary disease) Current Visit: Yes Status: Chronic Assessment and plan: No acute exacerbation. Pt wears 3L 02 at night. Continue 02 at night and prn during the day, titrate as needed to maintain sats >92%. Chest xray negative, continue home medications. Lungs are clear and diminished today. No wheezing, rhonchi, Rales, stridor, no respiratory distress. Pt does not require 02. Qualifiers: COPD type: unspecified COPD Qualified Code(s): J44.9 - Chronic obstructive pulmonary disease, unspecified (7) Hyperlipidemia Current Visit: No Status: Chronic Assessment and plan: Lipid panel elevated. Pt already takes Lipitor 40mg po daily. Qualifiers: Hyperlipidemia type: unspecified Qualified Code(s): E78.5 - Hyperlipidemia , unspecified (8) HTN (hypertension) Current Visit: Yes Status: Chronic Assessment and plan: Well controlled, continue home medications. Continue to monitor VS . Qualifiers: Hypertension type: essential hypertension Qualified Code(s): I10 - Essential (primary) hypertension (9) Morbid obesity with BMI of 40.0-44.9, adult Current Visit: Yes Status: Acute Assessment and plan: Chronic. Lifestyle changes. (10) DVT prophylaxis Current Visit: Yes Status: Acute Assessment and plan: Lovenox SQ - Time Spent With Patient less than 15 minutes - Subjective Interval history: Patient was seen and assessed at bedside at 0755 AM. She reports 5/10 headache today, no change from normal headache. She is resting quietly in a dark room. She denies any nausea or vomiting. Pt is aware of POC that bed at [facility] will not be ready until Thursday. - Constitutional Vitals: Temp Pulse Resp BP Pulse Ox 97.7 F 61 16 102/64 92 07/05/17 07:38 07/05/17 07:38 07/05/17 08:08 07/05/17 07:38 07/05/17 08:08 General appearance: Present: disheveled, A&O X 3, morbidly obese, pleasant, no acute distress, answers questions appropriately - Head Head exam: Present: atraumatic, normal inspection, normocephalic - Eye Eye exam: Present: normal appearance, conjuntiva pink, sclera anicteric - ENT ENT exam: Present: mucous membranes moist, normal exam, normal external ear exam - Neck Neck exam general surgery: Present: tenderness, supple, trachea midline. Absent : lymphadenopathy, nuchal rigidity - Respiratory Respiratory exam: Present: CTAB. Absent: accessory muscle use, decreased breath sounds, rales, rhonchi, wheezes - Cardiovascular Cardiovascular exam: Present: RRR, +S1, +S2. Absent: diastolic murmur, gallop, rubs, systolic murmur - GI/Abdominal GI/Abdominal exam: Present: normal bowel sounds, soft. Absent: distended, hepatomegaly, tenderness - Extremities Exam Extremities exam: Present: tenderness, warm, radial pulses palpable and symmetrical. Absent: calf tenderness, cyanotic, joint swelling, pedal edema Additional comments: pt reports tenderness to R knee - Neurological Exam Neurological exam: Present: alert, oriented X3, no focal deficits. Absent: altered, facial droop, speech deficit - Skin Skin exam: Present: dry, intact, normal color, warm. Absent: rash Internal Medicine: Result - Labs CBC & Chem 7: 07/03/17 03:52 07/05/17 06:48 Labs: BMP 07/05/17 06:48 Sodium 135 L Potassium 4.5 Chloride 101 Carbon Dioxide 27 BUN 17 Creatinine 0.85 Glucose 306 H Calcium 9.0 - ABG Interpretation ABG results: PT/INR, D-dimer PT 10.0 Seconds (9.4-12.1) 07/02/17 15:40 Consult Discharge Plan - Plan Referrals: Sharla Decker [Primary Care Provider] -
[2017-07-06] MEDS: traMADol 50 MG TABLET PO PRN ×3 (03:41→17:31)
[2017-07-06] MEDS: ALPRAZolam 0.5 MG TABLET PO PRN ×3 (03:42→17:31)
[2017-07-06 04:50] LABS: BUN/Creatinine Ratio 25 (6-26); Blood Urea Nitrogen 24 mg/dL (7-20); Calcium 9.2 mg/dL (8.6-10.8); Carbon Dioxide 29 mEq/L (19-29); Chloride 98 mEq/L (98-109); Glucose 364 mg/dL (70-99); Osmolality,Calculated 295 (280-300); Potassium 4.5 mEq/L (3.5-4.5); Sodium 133 mEq/L (136-145); eGFR For African Americans > 60 (> 60); eGFR For Non-African Americans 59 (> 60)
[2017-07-06] MEDS: *HR* Enoxaparin 40 MG/0.4 ML SYRINGE SQ SCH (05:34)
[2017-07-06] MEDS ORDERED: Cefuroxime PO 500 MG TABLET PO SCH (06:00)
[2017-07-06] MEDS: Cefuroxime PO 250 MG TABLET PO SCH ×2 (06:09→17:31)
[2017-07-06] MEDS ORDERED: 0.9 % Sodium Chloride 1,000 ML IVC SCH (07:30)
[2017-07-06] MEDS: Budesonide/Formoterol 80/4.5 MDI IH SCH ×2 (08:12→20:49)
[2017-07-06] MEDS: Furosemide 20 MG TABLET PO SCH (08:32)
[2017-07-06] MEDS: Gabapentin 300 MG CAPSULE PO SCH ×3 (08:32→20:03)
[2017-07-06] MEDS: Insulin LISPRO 300 UNITS/3 ML VIAL SQ SCH ×4 (08:32→20:04)
[2017-07-06] MEDS: Aspirin Enteric Coated 325 MG Tablet PO SCH (08:32)
[2017-07-06] MEDS: Lisinopril 20 MG TABLET PO SCH (08:33)
[2017-07-06] MEDS: Sulfamethoxazole/Trimeth DS 1 EACH TABLET PO SCH ×2 (08:33→20:03)
[2017-07-06] MEDS: Insulin DETEMIR 100 UNIT/ML X5UNITS SQ SCH ×2 (08:33→20:04)
[2017-07-06] MEDS ORDERED: SUMAtriptan succinate 25 MG TABLET PO PRN (09:48)
--- NOTE | 2017-07-06 09:51 | Internal Med Progress Note ---
Date of Encounter: 07/06/17 Time of Encounter: 07:55 - Assessment and plan (1) Chest pain Current Visit: Yes Status: Acute Qualifiers: Chest pain type: other chest pain Qualified Code(s): R07.89 - Other chest pain; R07.8 - Other chest pain (2) Headache Current Visit: No Status: Acute Qualifiers: Headache type: tension-type Headache chronicity pattern: acute headache Intractability: not intractable Qualified Code(s): G44.209 - Tension-type headache, unspecified, not intractable (3) Diabetes mellitus Current Visit: No Status: Chronic Qualifiers: Diabetes mellitus type: type 2 Diabetes mellitus complication status: with hyperglycemia 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: with fdc use Qualified Code(s): E11.65 - Type 2 diabetes mellitus with hyperglycemia; Z79.4 - roasterman (current) use of insulin (4) UTI (urinary tract infection) Current Visit: No Status: Acute Qualifiers: Urinary tract infection type: acute cystitis Hematuria presence: without hematuria Qualified Code(s): N30.00 - Acute cystitis without hematuria (5) Weakness Current Visit: Yes Status: Acute (6) COPD (chronic obstructive pulmonary disease) Current Visit: Yes Status: Chronic Qualifiers: COPD type: unspecified COPD Qualified Code(s): J44.9 - Chronic obstructive pulmonary disease, unspecified (7) Hyperlipidemia Current Visit: No Status: Chronic Qualifiers: Hyperlipidemia type: unspecified Qualified Code(s): E78.5 - Hyperlipidemia , unspecified (8) HTN (hypertension) Current Visit: Yes Status: Chronic Qualifiers: Hypertension type: essential hypertension Qualified Code(s): I10 - Essential (primary) hypertension (9) Morbid obesity with BMI of 40.0-44.9, adult Current Visit: Yes Status: Acute (10) DVT prophylaxis Current Visit: Yes Status: Acute - Subjective Interval history: Patient was seen and assessed at bedside at 0755 AM. She reports 4/10 headache today, no change from normal headache. States that she did get relief from Flexeril yesterday, states that she felt like there is water running down the back of her head. States that she normally has migraines and has not seen neurology. Will give Imitrex and assess for effectiveness. - Constitutional Vitals: Temp Pulse Resp BP Pulse Ox 98.0 F 80 16 101/68 97 07/06/17 07:38 07/06/17 03:37 07/06/17 08:17 07/06/17 07:38 07/06/17 08:17 General appearance: Present: disheveled, A&O X 3, morbidly obese, pleasant, no acute distress, answers questions appropriately - Head Head exam: Present: atraumatic, normal inspection, normocephalic - Eye Eye exam: Present: conjuntiva pink, sclera anicteric Pupils: Present: normal accommodation, PERRL - ENT ENT exam: Present: mucous membranes moist, normal exam, normal external ear exam - Neck Neck exam general surgery: Present: full ROM, normal inspection, supple, trachea midline. Absent: lymphadenopathy, tenderness, nuchal rigidity - Respiratory Respiratory exam: Present: CTAB. Absent: accessory muscle use, rales, rhonchi, wheezes - Cardiovascular Cardiovascular exam: Present: RRR, +S1, +S2. Absent: diastolic murmur, gallop, rubs, systolic murmur - GI/Abdominal GI/Abdominal exam: Present: distended, normal bowel sounds, soft. Absent: hepatomegaly, tenderness - Extremities Exam Extremities exam: Present: normal capillary refill, normal inspection, warm, radial pulses palpable and symmetrical. Absent: calf tenderness, cyanotic, pedal edema - Neurological Exam Neurological exam: Present: alert, oriented X3, strengths equal and symetr throughout, pronater drift. Absent: normal gait, facial droop, speech deficit Additional comments: Patient reports right knee pain, gait is steady, however she does have a slight limp. Patient will need to follow-up with Dr. Wade. - Expanded Neurological Exam Neurological exam expanded: Absent: ataxia, memory loss-recent event, receptive aphasia, tremor Patient oriented to: Present: person, place, time Speech: Present: fluid speech. Absent: expressive aphasia, garbled, slurred Cranial Nerves: EOM's intact PM: Normal, tongue deviation PM: Normal Coma Scale Eye Opening: Spontaneous Coma Scale Motor Response: Obeys Commands Coma Scale Verbal Response: Oriented Coma Scale Total: 15 - Skin Skin exam: Present: dry, intact, normal color, warm. Absent: rash Internal Medicine: Result - Labs CBC & Chem 7: 07/03/17 03:52 07/06/17 03:43 Labs: BMP 07/06/17 03:43 Sodium 133 L Potassium 4.5 Chloride 98 Carbon Dioxide 29 BUN 24 H Creatinine 0.96 Glucose 364 H Calcium 9.2 - ABG Interpretation ABG results: PT/INR, D-dimer PT 10.0 Seconds (9.4-12.1) 07/02/17 15:40 Consult Discharge Plan - Plan Referrals: Sharla Decker [Primary Care Provider] -
[2017-07-07] MEDS: Cefuroxime PO 250 MG TABLET PO SCH ×2 (05:41→17:24)
[2017-07-07] MEDS: *HR* Enoxaparin 40 MG/0.4 ML SYRINGE SQ SCH (05:41)
[2017-07-07 05:43] LABS: Basophils % 0.5 %; Eosinophils # 0.2 K/mcL (0.0-0.6); Hemoglobin 13.1 g/dL (11.5-15.4); Immature Granulocytes % 0.5 % (0-4); Lymphocytes % 31.4 %; Mean Corpuscular HGB Conc 32.8 g/dL (31.6-35.5); Mean Corpuscular Volume 91.5 fL (83.0-100.0); Mean Platelet Volume 10.3 fL (9.4-12.4); Monocytes # 0.6 K/mcL (0.0-1.3); Monocytes % 9.6 %; Neutrophils # 3.5 K/mcL (1.6-8.9); Platelet Count 197 K/mcL (140-400); Red Blood Count 4.37 M/mcL (3.82-4.97); Red Cell Distribution Width 12.8 % (11.5-14.5)
[2017-07-07 05:54] LABS: Calcium 9.1 mg/dL (8.6-10.8); Potassium 4.9 mEq/L (3.5-4.5)
--- NOTE | 2017-07-07 07:55 | Electrocardiograph Report ---
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
[2017-07-07] MEDS: Budesonide/Formoterol 80/4.5 MDI IH SCH ×2 (08:03→20:31)
--- NOTE | 2017-07-07 08:09 | Nuclear Medicine Stress Report ---
Exercise Nuclear Stress 2 day Name: iBna Garay Date of Study: 07/03/2017 Date: 1955 Ht: 65.0 in Medical Record#: [id number] Age: 62 Wt: 250.0 lb Gender: Female Order #: [id number] Location: [facility] Room: [facility] Supervising Provider: Arthur Gil CNP Reading Physician: Sammy Bowden DO, FACC, [facility] Ordering Physician: Catia Muniz CNP Primary Care Physician: Sharla Decker NP Stress Technologist: Angel Lyman, WOOD SCIENCE PROFESSOR, CPFT Business Information Consultant: Rhiannon Davis Indications: Chest Pain Impression: Pharmacologic stress ECG is negative for ischemia at level of heart rate achieved. Gated EF = 72%. Chest discomfort reported during stress, which is a nonspecific finding with Lexiscan. Small sized, mild intensity, fixed basal to mid anterior perfusion defect c/w artifact. Perfusion imaging was negative for ischemia or infarct. History: Hypertension Diabetes Hypercholesteremia Stress Test Summary: Stress Test Type: Pharmacologic Regadenoson 0.4mg/5ml given IV Baseline Information: Initial Heart Rate: 60 Blood Pressure: 108/72 Stress Information: Test Terminated Due to (primary): As per protocol Maximum Blood Pressure: 104/60 Maximum Heart Rate: 65 Percent Maximum Heart Rate Achieved: 41 Double Product: [id number] METS Reached: 1 Symptoms: No chest symptoms Nuclear Summary: SPECT myocardial perfusion imaging using Tc99m Sestamibi given intravenously was performed at rest and following cardiac stress testing. The resting images were obtained following initial dose of 35.7 mCi. Following stress an additional dose of 35.5 mCi was given at peak exercise or 30 seconds post regadenoson infusion. Medication Given: Time Medication Dose Units Route Findings: Stress Note * Resting ECG demonstrated normal sinus rhythm. * No baseline arrhythmias were noted. * Pharmacologic stress ECG is negative for ischemia at level of heart rate achieved. * No arrhythmias were noted during stress. * Chest discomfort reported during stress. Hemodynamic responses * Normal hemodynamic responses to pharmacologic stress. Study Quality * Study quality is average. Gated EF % * Gated EF = 72%. Left Ventricle * The left ventricle is not dilated. * LVEDV = 93 mL. NORMALS * Normal wall motion. Anterior Perfusion Rest * The basal to mid anterior segments demonstrate a mild reduction in perfusion. Anterior Perfusion Stress * The basal to mid anterior segments demonstrate a mild reduction in perfusion. TID * No evidence of transient ischemic dilatation. TID ratio * TID ratio = 0.98. Lung Uptake * There is no evidence of increase lung uptake. Updated by Sammy Bowden DO, WAYNE, GERALDINE, OMID on 07/04/2017 11:39:06 AM electronically signed on 07/04/2017 11:40:00 AM with status of Final
[2017-07-07] MEDS: Sulfamethoxazole/Trimeth DS 1 EACH TABLET PO SCH (08:52)
[2017-07-07] MEDS: Gabapentin 300 MG CAPSULE PO SCH ×3 (08:53→20:25)
[2017-07-07] MEDS: Lisinopril 20 MG TABLET PO SCH (08:53)
[2017-07-07] MEDS: Insulin DETEMIR 100 UNIT/ML X5UNITS SQ SCH (08:54)
[2017-07-07] MEDS: Aspirin Enteric Coated 325 MG Tablet PO SCH (08:54)
[2017-07-07] MEDS: Insulin LISPRO 300 UNITS/3 ML VIAL SQ SCH ×7 (08:54→20:26)
[2017-07-07] MEDS: traMADol 50 MG TABLET PO PRN (09:03)
[2017-07-07] MEDS: ALPRAZolam 0.5 MG TABLET PO PRN ×2 (09:03→15:31)
--- NOTE | 2017-07-07 17:24 | Internal Med Progress Note ---
Date of Encounter: 07/07/17 Time of Encounter: 08:40 - Assessment and plan (1) Acute kidney injury Status: Acute Assessment and plan: Renal function worse today. Likely due to Bactrim use. Will stop Bactrim (2) Chest pain Status: Resolved Assessment and plan: Stress test negative for ischemia. No longer having chest pain at this time Qualifiers: Chest pain type: other chest pain Qualified Code(s): R07.89 - Other chest pain; R07.8 - Other chest pain (3) COPD (chronic obstructive pulmonary disease) Status: Chronic Assessment and plan: Not in acute exacerbation. Continue treating with bronchodilators as needed Qualifiers: COPD type: unspecified COPD Qualified Code(s): J44.9 - Chronic obstructive pulmonary disease, unspecified (4) Diabetes mellitus Status: Chronic Assessment and plan: Blood sugars were severely elevated. We will increase insulin regimen and continue to monitor blood sugars closely. Qualifiers: Diabetes mellitus type: type 2 Diabetes mellitus complication status: with hyperglycemia Diabetes mellitus termite exterminator helper insulin use: with senior care use Qualified Code(s): E11.65 - Type 2 diabetes mellitus with hyperglycemia; Z79.4 - joint terminal attack controller (current) use of insulin (5) DVT prophylaxis Status: Acute Assessment and plan: On Lovenox (6) Headache Status: Acute Assessment and plan: Intermittent headache . Tension type and migraine related. Treat symptomatically. Qualifiers: Headache type: tension-type Headache chronicity pattern: acute headache Intractability: not intractable Qualified Code(s): G44.209 - Tension-type headache, unspecified, not intractable (7) HTN (hypertension) Status: Chronic Assessment and plan: Blood pressure is well controlled Qualifiers: Hypertension type: essential hypertension Qualified Code(s): I10 - Essential (primary) hypertension (8) Morbid obesity with BMI of 40.0-44.9, adult Status: Acute (9) UTI (urinary tract infection) Status: Acute Assessment and plan: On cefuroxime and Bactrim. Will stop Bactrim Qualifiers: Urinary tract infection type: acute cystitis Hematuria presence: without hematuria Qualified Code(s): N30.00 - Acute cystitis without hematuria (10) Weakness Status: Acute Assessment and plan: Awaiting placement to skilled rehabilitation (11) CHF (congestive heart failure) Status: Chronic Assessment and plan: On Lasix. Hold Lasix today due to worsening renal function. Qualifiers: Congestive heart failure type: diastolic Congestive heart failure chronicity: chronic Qualified Code(s): I50.32 - Chronic diastolic (congestive ) heart failure - Subjective Interval history: Patient is doing well today. Continues to have intermittent headaches but at this time seems to be better. Has been passing urine well. Denies any other complaints at this time. - Constitutional Vitals: Temp Pulse Resp BP Pulse Ox 98.1 F 62 16 82/51 93 07/07/17 15:13 07/07/17 15:13 07/07/17 15:13 07/07/17 15:13 07/07/17 15:13 General appearance: Present: disheveled, A&O X 3, morbidly obese, pleasant, no acute distress, answers questions appropriately - Respiratory Respiratory exam: Present: CTAB. Absent: accessory muscle use, rales, rhonchi, wheezes - Cardiovascular Cardiovascular exam: Present: RRR, +S1, +S2. Absent: diastolic murmur, gallop, rubs, systolic murmur - GI/Abdominal GI/Abdominal exam: Present: normal bowel sounds, soft, no peritoneal signs. Absent: distended, tenderness - Extremities Exam Extremities exam: Present: warm, radial pulses palpable and symmetrical. Absent : calf tenderness, cyanotic, pedal edema Internal Medicine: Result - Labs CBC & Chem 7: 07/08/17 05:06 07/08/17 05:06 Labs: Short CBC 07/07/17 Range/Units 05:15 WBC 6.4 (4.3-11.1) K/mcL Hgb 13.1 (11.5-15.4) g/dL Hct 40.0 (35.3-44.9) % Plt Count 197 (140-400) K/mcL Neutrophils # 3.5 (1.6-8.9) K/mcL BMP 07/07/17 05:15 Sodium 135 L Potassium 4.9 H Chloride 98 Carbon Dioxide 29 BUN 24 H Creatinine 1.17 H Glucose 461 H Calcium 9.1 - ABG Interpretation ABG results: PT/INR, D-dimer PT 10.0 Seconds (9.4-12.1) 07/02/17 15:40 Consult Discharge Plan - Plan Instructions: Chest Pain (DC), Diabetes Mellitus Type 2 in Adults (DC), Chronic Obstructive Pulmonary Disease (DC) Referrals: Brianne,Sharla [Primary Care Provider] - Prescriptions: ALPRAZolam [Xanax 0.5 MG Tablet] 0.5 mg PO TID PRN #14 PRN Reason: Anxiety Gabapentin [Neurontin] 600 mg PO TID #30 Tramadol HCl [Ultram] 50 mg PO TID PRN #20 tab PRN Reason: Pain
[2017-07-07] MEDS ORDERED: 0.9 % Sodium Chloride 1,000 ML IVC SCH (18:00)
[2017-07-07] MEDS ORDERED: Insulin DETEMIR 100 UNIT/ML X5UNITS SQ SCH (21:00)
[2017-07-08] MEDS: Cefuroxime PO 250 MG TABLET PO SCH (05:32)
[2017-07-08] MEDS: *HR* Enoxaparin 40 MG/0.4 ML SYRINGE SQ SCH (05:32)
[2017-07-08 06:04] LABS: Basophils # 0.1 K/mcL (0.0-0.2); Basophils % 0.8 %; Eosinophils # 0.2 K/mcL (0.0-0.6); Eosinophils % 3.9 %; Hematocrit 39.5 % (35.3-44.9); Immature Granulocytes % 0.7 % (0-4); Lymphocytes # 2.2 K/mcL (0.6-4.6); Mean Corpuscular HGB Conc 32.9 g/dL (31.6-35.5); Mean Corpuscular Hemoglobin 29.8 pg (28.0-33.3); Mean Corpuscular Volume 90.6 fL (83.0-100.0); Mean Platelet Volume 10.1 fL (9.4-12.4); Monocytes # 0.6 K/mcL (0.0-1.3); Monocytes % 9.6 %; Neutrophils # 3.1 K/mcL (1.6-8.9); Platelet Count 203 K/mcL (140-400); Red Blood Count 4.36 M/mcL (3.82-4.97); Red Cell Distribution Width 12.7 % (11.5-14.5)
[2017-07-08 06:15] LABS: BUN/Creatinine Ratio 25 (6-26); Blood Urea Nitrogen 23 mg/dL (7-20); Calcium 9.4 mg/dL (8.6-10.8); Carbon Dioxide 30 mEq/L (19-29); Chloride 100 mEq/L (98-109); Glucose 321 mg/dL (70-99); Osmolality,Calculated 296 (280-300); Potassium 4.8 mEq/L (3.5-4.5); Sodium 135 mEq/L (136-145); eGFR For African Americans > 60 (> 60); eGFR For Non-African Americans > 60 (> 60)
[2017-07-08] MEDS: Aspirin Enteric Coated 325 MG Tablet PO SCH (08:05)
[2017-07-08] MEDS: Gabapentin 300 MG CAPSULE PO SCH (08:06)
[2017-07-08] MEDS: Budesonide/Formoterol 80/4.5 MDI IH SCH (08:06)
[2017-07-08] MEDS: Insulin LISPRO 300 UNITS/3 ML VIAL SQ SCH ×5 (08:07→11:45)
[2017-07-08] MEDS ORDERED: Insulin DETEMIR 100 UNIT/ML X5UNITS SQ SCH (09:00)
[2017-07-08 11:29] VITALS: BP 116/76
--- NOTE | 2017-07-08 12:04 | Discharge Summary ---
Date of Encounter: 07/08/17 Time of Encounter: 11:57 - Discharge Diagnosis (1) Chest pain Priority: Primary Status: Resolved Qualifiers: Chest pain type: other chest pain Qualified Code(s): R07.89 - Other chest pain; R07.8 - Other chest pain (2) COPD (chronic obstructive pulmonary disease) Priority: Secondary Status: Chronic Qualifiers: COPD type: unspecified COPD Qualified Code(s): J44.9 - Chronic obstructive pulmonary disease, unspecified (3) Diabetes mellitus Priority: Secondary Status: Chronic Qualifiers: Diabetes mellitus type: type 2 Diabetes mellitus complication status: with hyperglycemia Diabetes mellitus penitentiary insulin use: with rodent exterminator use Qualified Code(s): E11.65 - Type 2 diabetes mellitus with hyperglycemia; Z79.4 - equipment operator intermodal yard (current) use of insulin (4) DVT prophylaxis Priority: Secondary Status: Acute (5) Headache Priority: Secondary Status: Acute Qualifiers: Headache type: tension-type Headache chronicity pattern: acute headache Intractability: not intractable Qualified Code(s): G44.209 - Tension-type headache, unspecified, not intractable (6) HTN (hypertension) Priority: Secondary Status: Chronic Qualifiers: Hypertension type: essential hypertension Qualified Code(s): I10 - Essential (primary) hypertension (7) Morbid obesity with BMI of 40.0-44.9, adult Priority: Secondary Status: Acute (8) UTI (urinary tract infection) Priority: Secondary Status: Acute Qualifiers: Urinary tract infection type: acute cystitis Hematuria presence: without hematuria Qualified Code(s): N30.00 - Acute cystitis without hematuria (9) Weakness Priority: Secondary Status: Acute (10) Acute kidney injury Priority: Secondary Status: Acute (11) CHF (congestive heart failure) Priority: Secondary Status: Chronic Qualifiers: Congestive heart failure type: diastolic Congestive heart failure chronicity: chronic Qualified Code(s): I50.32 - Chronic diastolic (congestive ) heart failure - Discharge Medications Prescriptions: ALPRAZolam [Xanax 0.5 MG Tablet] 0.5 mg PO TID PRN #14 PRN Reason: Anxiety Gabapentin [Neurontin] 600 mg PO TID #30 Tramadol HCl [Ultram] 50 mg PO TID PRN #20 tab PRN Reason: Pain Home Medications: Furosemide [Lasix] 20 mg PO QAM 11/15/15 [History] Insulin ASPART [Novolog] 0 unit SQ TIDWM 11/15/15 [History] metFORMIN [Glucophage] 1,000 mg PO BID 11/15/15 [History] Albuterol Sulfate [Albuterol Inhaler] 2 puff IH Q4-6H PRN 09/01/16 [History] Aspirin [Ecotrin] 325 mg PO DAILY 10/20/16 [History] Liraglutide [Victoza 2-Harish] 1.8 mg SQ DAILY 11/04/16 [History] Lisinopril [Zestril] 40 mg PO QAM 11/04/16 [History] Budesonide/Formoterol 80/4.5 [Symbicort 80/4.5] 2 puff IH QID 02/25/17 [History ] DULoxetine [Cymbalta] 60 mg PO DAILY 02/25/17 [History] Atorvastatin [Lipitor] 40 mg PO HS 04/28/17 [History] Clopidogrel [Plavix] 75 mg PO DAILY 04/28/17 [History] Insulin Glargine [Lantus] 50 unit SQ BID 04/28/17 [History] Oxygen 3 l NS HS 04/28/17 [History] ALPRAZolam [Xanax 0.5 MG Tablet] 0.5 mg PO TID PRN #14 07/08/17 [Rx] Cefuroxime PO [Ceftin] 500 mg PO Q12HR 5 Days 07/08/17 [Rx] Docusate [Colace] 100 mg PO DAILY 07/08/17 [Rx] Gabapentin [Neurontin] 600 mg PO TID #30 07/08/17 [Rx] Sodium Chloride 1 gm PO DAILY tab 07/08/17 [Rx] Tramadol HCl [Ultram] 50 mg PO TID PRN #20 tab 07/08/17 [Rx] Allergies/Adverse Reactions: 3 Allergy/AdvReac Type Severity Reaction Status Date / Time fluoxetine [From Prozac] AdvReac ams Verified 04/28/17 19:28 naproxen [From Naprosyn] AdvReac Gastrointestinal Verified 10/20/16 17:19 Upset pioglitazone [From Actos] AdvReac Gastrointestinal Verified 10/20/16 17:19 Upset Date of admission: 07/02/17 18:25 Primary care physician: Sharla Decker Consults: 07/03/17 11:13 Consult to Occupational Therapy [CONS] Routine Comment: Evaluate, develop and implement POC Reason for Consult: weakness, evaluation Consult to Physical Therapy [CONS] Routine Comment: Evaluate, develop and implement POC Reason for Consult: weakness, evaluation 07/06/17 17:58 Consult to Restrictive Preparation Operator [CONS] Routine Reason for SW Consult: ECF placement possibly [facility]. Discharging clinician: Jolene Figueroa Anticipated date of discharge: 07/08/17 - Patient Status Disposition: Home, Self-Care Condition: Good Functional capacity at discharge: uses cane/walker Overall status at discharge: patient is back to baseline - Discharge Instructions Instructions: Chest Pain (DC), Diabetes Mellitus Type 2 in Adults (DC), Chronic Obstructive Pulmonary Disease (DC) Follow Up With: Sharla Decker [Primary Care Provider] - - Diet and Activity Activity: as per physical therapy Diet: diabetic diet, low fat, low cholesterol, low salt diet Hospital course: Ms. Garay is a 62 year old female with history of diabetes, migraine disorder, hyperlipidemia who was hospitalized here with acute urinary tract infection and chest pain. She was worked up for coronary artery disease and acute coronary syndrome with EKG and troponins. They were negative for ACS and so she underwent cardiac stress test. Cardiac stress test was negative for ischemia. Chest pain has now resolved. During workup she was also found to have acute urinary tract infection and was treated for this with cefuroxime and Bactrim. Her renal function did decline while the patient was on Bactrim and so this medication has been stopped. Her renal function has normalized now. Patient is on Lasix for chronic congestive heart failure. She can continue to take it at the same dose after discharge. She has been having generalized weakness and physical therapy was consulted. Per their recommendations, she will be discharged to skilled rehabilitation. Her diabetes was difficult to control and her insulin regimen has been increased to achieve better control. She also has intermittent headaches related to migraine and stress/tension induced. These were treated symptomatically. - Time Spent with Patient Total time spent providing and/or coordinating discharge services: Greater than 30 minutes (40 min) - Constitutional Vitals: Temp Pulse Resp BP Pulse Ox 97.9 F 68 16 116/76 94 07/08/17 11:28 07/08/17 11:28 07/08/17 11:28 07/08/17 11:28 07/08/17 11:28 General appearance: Present: disheveled, A&O X 3, morbidly obese, pleasant, no acute distress, answers questions appropriately - Neck Neck exam general surgery: Present: supple, trachea midline. Absent: lymphadenopathy - Respiratory Respiratory exam: Present: CTAB. Absent: accessory muscle use, rales, rhonchi, wheezes - Cardiovascular Cardiovascular exam: Present: RRR, +S1, +S2. Absent: diastolic murmur, gallop, rubs, systolic murmur - GI/Abdominal GI/Abdominal exam: Present: normal bowel sounds, soft, no peritoneal signs. Absent: distended, tenderness - Extremities Exam Extremities exam: Present: warm, radial pulses palpable and symmetrical. Absent : calf tenderness, cyanotic, pedal edema
--- NOTE | 2017-07-08 12:07 | Physician Discharge Referral ---
ExtendedCare Referral Info Provider in Charge after Transfer: PCP Institutional Level of Care: Skilled - Diagnosis (1) Chest pain Priority: Primary Status: Acute (2) COPD (chronic obstructive pulmonary disease) Priority: Secondary Status: Chronic (3) Diabetes mellitus Priority: Secondary Status: Chronic (4) DVT prophylaxis Priority: Secondary Status: Acute (5) Headache Priority: Secondary Status: Acute (6) HTN (hypertension) Priority: Secondary Status: Chronic (7) Morbid obesity with BMI of 40.0-44.9, adult Priority: Secondary Status: Acute (8) UTI (urinary tract infection) Priority: Secondary Status: Acute (9) Weakness Priority: Secondary Status: Acute (10) Acute kidney injury Priority: Secondary Status: Resolved (11) CHF (congestive heart failure) Priority: Secondary Status: Chronic Prognosis: Fair Aware of Diagnosis: Patient Aware of Prognosis: Patient - Transfer Medications Prescriptions: ALPRAZolam [Xanax 0.5 MG Tablet] 0.5 mg PO TID PRN #14 PRN Reason: Anxiety Gabapentin [Neurontin] 600 mg PO TID #30 Tramadol HCl [Ultram] 50 mg PO TID PRN #20 tab PRN Reason: Pain Home Medications: Furosemide [Lasix] 20 mg PO QAM 11/15/15 [History] Insulin ASPART [Novolog] 0 unit SQ TIDWM 11/15/15 [History] metFORMIN [Glucophage] 1,000 mg PO BID 11/15/15 [History] Albuterol Sulfate [Albuterol Inhaler] 2 puff IH Q4-6H PRN 09/01/16 [History] Aspirin [Ecotrin] 325 mg PO DAILY 10/20/16 [History] Liraglutide [Victoza 2-Harish] 1.8 mg SQ DAILY 11/04/16 [History] Lisinopril [Zestril] 40 mg PO QAM 11/04/16 [History] Budesonide/Formoterol 80/4.5 [Symbicort 80/4.5] 2 puff IH QID 02/25/17 [History ] DULoxetine [Cymbalta] 60 mg PO DAILY 02/25/17 [History] Atorvastatin [Lipitor] 40 mg PO HS 04/28/17 [History] Clopidogrel [Plavix] 75 mg PO DAILY 04/28/17 [History] Insulin Glargine [Lantus] 50 unit SQ BID 04/28/17 [History] Oxygen 3 l NS HS 04/28/17 [History] ALPRAZolam [Xanax 0.5 MG Tablet] 0.5 mg PO TID PRN #14 07/08/17 [Rx] Cefuroxime PO [Ceftin] 500 mg PO Q12HR 5 Days 07/08/17 [Rx] Docusate [Colace] 100 mg PO DAILY 07/08/17 [Rx] Gabapentin [Neurontin] 600 mg PO TID #30 07/08/17 [Rx] Sodium Chloride 1 gm PO DAILY tab 07/08/17 [Rx] Tramadol HCl [Ultram] 50 mg PO TID PRN #20 tab 07/08/17 [Rx] Allergies/Adverse Reactions: 3 Allergy/AdvReac Type Severity Reaction Status Date / Time fluoxetine [From Prozac] AdvReac ams Verified 04/28/17 19:28 naproxen [From Naprosyn] AdvReac Gastrointestinal Verified 10/20/16 17:19 Upset pioglitazone [From Actos] AdvReac Gastrointestinal Verified 10/20/16 17:19 Upset - Respiratory Orders Smoking Cessation: Smoking cessation has been advised. For more information, call the [place] Tobacco Quit Line at 3-320-ZFDY-NOW. - Ancillary Orders May consult with Dentist, Resident Assistant Cna, Senior Economist PRN - Advance Directives Code Status: Full Code - Mobility Orders Other (per PT) - Rehabiliation Orders Rehab Potential: Fair Rehab Orders: Evaluation for Physical Therapy, Evaluation for Occupational Therapy - Diet Orders Mechanical Soft, No Added Salt (PIEDAD), No Concentrated Sweets (diabetic), Cardiac CERTIFICATION: I certify that the transfer of the above named patient to an Extended Care Facility is necessary for the continuing treatment of the diagnosis listed. The above information is true and accurate reflection of patient's current condition. Confidential - Redisclosure prohibited without a patient's written consent.
== END 2017-07-08 14:53 | disposition home or self-care (01) ==
LOC: EMEROO 14:52 → 3BNU 14:52 → SUATTDRO 18:25 → 3BNU 18:47
PROVIDERS: ADMIT Registered Nurse; ATTEND Internal Medicine

== ENCOUNTER 2017-09-03 19:04 | Observation (INO) ==
[2017-09-03] MEDS ORDERED: Nitroglycerin 0.4 MG TAB.SUBL SL ONE (19:14)
[2017-09-03] MEDS ORDERED: Aspirin 81 MG TAB.CHEW PO ONE (19:14)
[2017-09-03 19:25] LABS: Basophils % 0.3 %; Eosinophils # 0.1 K/mcL (0.0-0.6); Eosinophils % 0.7 %; Hemoglobin 14.9 g/dL (11.5-15.4); Immature Granulocytes % 0.3 % (0-4); Lymphocytes # 1.7 K/mcL (0.6-4.6); Lymphocytes % 19.1 %; Mean Corpuscular HGB Conc 33.9 g/dL (31.6-35.5); Mean Corpuscular Hemoglobin 29.2 pg (28.0-33.3); Mean Corpuscular Volume 86.3 fL (83.0-100.0); Monocytes # 0.5 K/mcL (0.0-1.3); Monocytes % 5.6 %; Neutrophils # 6.6 K/mcL (1.6-8.9); Platelet Count 264 K/mcL (140-400); Red Cell Distribution Width 12.5 % (11.5-14.5)
[2017-09-03] MEDS ORDERED: 0.9 % Sodium Chloride 1,000 ML IVC ONE (19:32)
[2017-09-03 19:33] LABS: Prothrombin Time 10.5 Seconds (9.4-12.1)
[2017-09-03 19:36] LABS: Activated Partial Thrombo Time 27.3 Seconds (26.0-36.0)
[2017-09-03] MEDS ORDERED: *HR* Morphine 2 MG/ML SYRINGE IVP ONE (19:36)
--- NOTE | 2017-09-03 19:38 | Emergency Department Note ---
Disposition Clinical Impression: Chest pain Qualifiers: Chest pain type: unspecified Qualified Code(s): R07.9 - Chest pain, unspecified Disposition: Admitted As Inpatient Condition: Fair Time of Disposition: 21:57 Chest Pain HPI - General Chief Complaint: ED Chest Pain Stated Complaint: Chest pain Time Seen by Provider: 09/03/17 19:05 Source: patient, EMS Limitations: no limitations Vital Signs Reviewed: Yes Nursing Notes Reviewed: Yes - History of Present Illness HPI Narrative: 62-year-old female presents to the ED complaining of chest pain that began approximately 6 hours ago. She states the chest pain is located in the left side of her chest radiates into her left shoulder and up into her back. She says the radiation comes and goes with the chest pain is constant. She said she has felt the same pain before back in July when she was admitted for chest pain but says this pain is worse now. She states she was feeling well and nauseous earlier today with the nausea since gone away. She has had no vomiting. She is having no blurry vision or headaches. She does state some mild abdominal pain mainly in the right side. She said she recently had a vaginal ultrasound done yesterday and since then has been having pain. She states that they found something on her ovary and something else in her belly but they are not sure. She had suffered a follow-up appointment with the OB/ [facility] in November. Patient having no changes in bowel movements or pain with urination or any pain or tingling going down the arms or legs. She has no other complaints at this time. Severity scale (1-10): 10 - Related Data Home Medications Medication Instructions Recorded Confirmed Furosemide [Lasix] 20 mg PO QAM 11/15/15 07/02/17 Insulin ASPART [Novolog] 0 unit SQ TIDWM 11/15/15 07/02/17 metFORMIN [Glucophage] 1,000 mg PO BID 11/15/15 07/02/17 Albuterol Sulfate [Albuterol 2 puff IH Q4-6H PRN 09/01/16 07/02/17 Inhaler] Aspirin [Ecotrin] 325 mg PO DAILY 10/20/16 07/02/17 Liraglutide [Victoza 2-Harish] 1.8 mg SQ DAILY 11/04/16 07/02/17 Lisinopril [Zestril] 40 mg PO QAM 11/04/16 07/02/17 Budesonide/Formoterol 80/4.5 2 puff IH QID 02/25/17 07/02/17 [Symbicort 80/4.5] DULoxetine [Cymbalta] 60 mg PO DAILY 02/25/17 07/02/17 Atorvastatin [Lipitor] 40 mg PO HS 04/28/17 07/02/17 Clopidogrel [Plavix] 75 mg PO DAILY 04/28/17 07/02/17 Insulin Glargine [Lantus] 50 unit SQ BID 04/28/17 07/02/17 Oxygen 3 l NS HS 04/28/17 07/02/17 Previous Rx's Medication Instructions Recorded ALPRAZolam [Xanax 0.5 MG Tablet] 0.5 mg PO TID PRN #14 07/08/17 Cefuroxime PO [Ceftin] 500 mg PO Q12HR 5 Days tab 07/08/17 Docusate [Colace] 100 mg PO DAILY 07/08/17 Gabapentin [Neurontin] 600 mg PO TID #30 07/08/17 Sodium Chloride 1 gm PO DAILY tab 07/08/17 Tramadol HCl [Ultram] 50 mg PO TID PRN #20 tab 07/08/17 Allergies Allergy/AdvReac Type Severity Reaction Status Date / Time fluoxetine [From Prozac] AdvReac ams Verified 04/28/17 19:28 naproxen [From Naprosyn] AdvReac Gastrointestinal Verified 10/20/16 17:19 Upset pioglitazone [From Actos] AdvReac Gastrointestinal Verified 10/20/16 17:19 Upset Review of Systems: 10 point review of systems done and negative unless otherwise stated in history of present illness. All systems ED: reviewed and negative except as stated. 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 - Social History Smoking Status: Former smoker Alcohol use: Reports: none Drug use: Reports: none Physical Exam - General Limitations: no limitations General appearance: alert - Head Head exam: atraumatic, normocephalic, normal inspection - Eye Eye exam: Present: normal appearance, PERRL, EOMI - ENT ENT exam: normal exam, normal oropharynx, mucous membranes moist - Neck Neck exam: Present: normal inspection, full ROM, trachea midline - Chest Chest inspection: Present: normal inspection, symmetric chest wall rise - Respiratory Respiratory exam: Present: normal lung sounds bilaterally - Cardiovascular Cardiovascular exam: Present: regular rate, normal rhythm, normal heart sounds - Abdominal Exam Abdominal exam: Present: soft, Non-Tender, tenderness, normal bowel sounds. Absent: distention, guarding, rebound, rigidity, trauma, incision, Wilkins's sign , tenderness at McBurney's Point, mass Abdominal tenderness: Present: RLQ, mild - Expanded Lower Extremity Exam Foot/toe exam: Present: normal inspection, full ROM. Absent: swelling Neurovascular/Tendon exam: Absent: motor deficit, sensory deficit, tendon deficit - Back Exam Back exam: Present: normal inspection, full ROM. Absent: tenderness - Neurological Exam Neurological exam: Present: alert, oriented X3 - Skin Skin exam: Present: warm, dry, intact, normal color Course Course Narrative: 62-year-old female presents the ED complaining of chest pain is gone on for 6 hours. She does not have any cardiac history but we will treat this is ACS. We will do normal chest pain workup including chest x-ray, EKG, CBC, CMP, troponin. We will also give her nitroglycerin and aspirin. Patient is okay with this plan. - Reevaluation(s) Reevaluation #1: On EKG patient did have a few mild EKG changes or there are some what looks to be biphasic T waves in V1 and some changes in V2. These are very mild we will repeat EKG of the 30 minute vicente. Her pressure is 90 systolic to hold off on giving nitroglycerin. Will give her morphine 4 mg and fluids over the pressure and the pain. He also states that she fell earlier today and did hit her head she now is it consciousness and she remembers the whole event but said she did hit her head and all the symptoms occurred after that. So we will get a CT of her head without contrast. Patient's okay with this. Time: 19:44 Vital Signs Temperature 98.2 F 09/03/17 19:05 Pulse Rate 66 09/03/17 19:05 Respiratory Rate 12 09/03/17 19:05 Blood Pressure 121/69 09/03/17 19:05 O2 Sat by Pulse Oximetry 94 09/03/17 19:05 Temperature 98.2 F 09/03/17 19:05 Pulse Rate 63 09/03/17 21:38 Respiratory Rate 20 09/03/17 22:09 Blood Pressure 109/60 09/03/17 22:09 O2 Sat by Pulse Oximetry 98 09/03/17 21:38 Oxygen Delivery Oxygen Delivery Nasal Cannula Chest Pain - [facility] Narrative Medical decision making narrative: 62-year-old female presents to the ED complaining of chest pain that began about 6 hours ago. She states it is left-sided radiating to her left arm and back. She states this feels like last time she was admitted here for similar symptoms. There she had a negative stress and negative echo. These are very anginal in description. We decided a normal chest pain workup. Chest x-ray, labs including troponin came BACK normal. She was hypotensive when she first got here held off on giving her nitroglycerin her pain meds. She was given aspirin. We gave her 1 bag of fluids which brought her pressure up to 110 systolic at this time we did give him morphine. She states that her pain did go down. Patient was in the bed sleeping while woken up she said her pain was 8 out of 10 but she was comfortably sleeping. After the morphine she says her pain is down to 5 out of 10. We talked to her more and she actually said that she fell earlier today and hit her head so we did do a CT noncontrast of her head which did come back normal. EKG did have some subtle changes but it was no STEMI. We did do a repeat EKG that was unchanged from the previous one. This made us feel better that there was no acute react symptoms going on. Due to her history and the chest pain we fell that is best that she be admitted for serial troponins and possible stress test or echo in the morning. We admitted the patient. The hospitalist decided to accept the patient. Patient was admitted in stable condition. Patient is okay with this plan. - Medical Records Medical records reviewed: Yes I reviewed the patient's medical records. - Lab Data Lab results reviewed: Yes I reviewed the patient's lab results. Result diagrams: 09/03/17 19:15 09/03/17 19:15 Lab Results 09/03/17 09/03/17 09/03/17 Range/Units 19:15 19:15 19:15 WBC 8.9 (4.3-11.1) K/mcL RBC 5.10 H (3.82-4.97) M/mcL Hgb 14.9 (11.5-15.4) g/dL Hct 44.0 (35.3-44.9) % MCV 86.3 (83.0-100.0) fL MCH 29.2 (28.0-33.3) pg MCHC 33.9 (31.6-35.5) g/dL RDW 12.5 (11.5-14.5) % Plt Count 264 (140-400) K/mcL MPV 10.0 (9.4-12.4) fL Immature Gran % 0.3 (0-4) % Seg Neutrophils % 74.0 % Lymphocytes % 19.1 % Monocytes % 5.6 % Eosinophils % 0.7 % Basophils % 0.3 % Neutrophils # 6.6 (1.6-8.9) K/mcL Lymphocytes # 1.7 (0.6-4.6) K/mcL Monocytes # 0.5 (0.0-1.3) K/mcL Eosinophils # 0.1 (0.0-0.6) K/mcL Basophils # 0.0 (0.0-0.2) K/mcL PT 10.5 (9.4-12.1) Seconds INR 1.0 APTT 27.3 (26.0-36.0) Seconds Sodium 132 L (136-145) mEq/L Potassium 4.4 (3.5-4.5) mEq/L Chloride 97 L (98-109) mEq/L Carbon Dioxide 24 (19-29) mEq/L BUN 18 (7-20) mg/dL Creatinine 0.78 (0.57-1.11) mg/dL Est GFR ( Amer) > 60 (> 60) Est GFR (Non-Af Amer) > 60 (> 60) BUN/Creatinine Ratio 23 (6-26) Glucose 318 H (70-99) mg/dL Calculated Osmolality 288 (280-300) Calcium 9.3 (8.6-10.8) mg/dL Troponin I (0-0.03) ng/mL 09/03/17 Range/Units 19:15 WBC (4.3-11.1) K/mcL RBC (3.82-4.97) M/mcL Hgb (11.5-15.4) g/dL Hct (35.3-44.9) % MCV (83.0-100.0) fL MCH (28.0-33.3) pg MCHC (31.6-35.5) g/dL RDW (11.5-14.5) % Plt Count (140-400) K/mcL MPV (9.4-12.4) fL Immature Gran % (0-4) % Seg Neutrophils % % Lymphocytes % % Monocytes % % Eosinophils % % Basophils % % Neutrophils # (1.6-8.9) K/mcL Lymphocytes # (0.6-4.6) K/mcL Monocytes # (0.0-1.3) K/mcL Eosinophils # (0.0-0.6) K/mcL Basophils # (0.0-0.2) K/mcL PT (9.4-12.1) Seconds INR APTT (26.0-36.0) Seconds Sodium (136-145) mEq/L Potassium (3.5-4.5) mEq/L Chloride (98-109) mEq/L Carbon Dioxide (19-29) mEq/L BUN (7-20) mg/dL Creatinine (0.57-1.11) mg/dL Est GFR ( Amer) (> 60) Est GFR (Non-Af Amer) (> 60) BUN/Creatinine Ratio (6-26) Glucose (70-99) mg/dL Calculated Osmolality (280-300) Calcium (8.6-10.8) mg/dL Troponin I 0.00 (0-0.03) ng/mL - Radiology Data Radiology results reviewed: Yes I reviewed the patient's radiology results. - EKG Data EKG attestation: Yes I reviewed and interpreted this EKG. EKG results narrative: EKG #1 done at 1908 review myself and attending shows normal sinus rhythm at a rate of 67, MD interval 137, QRS 104, QTc 454 with a normal axis. with mild T- wave changes as there is a biphasic wave in V1 and mild changes in V2. No acute ST changes. No signs of heart strain no signs of hypertrophy. No signs of WPW/Brugada syndrome. This compared with old EKG done on 07/02/17 shows normal sinus rhythm with no acute changes R flipped T waves in V1 and V2. But no ST depression or ST changes. EKG #2 done at 1954 to be myself and the attending shows normal sinus rhythm at a rate of 61, MD interval 137, QRS 102, QTc 472 with a normal axis when compared to the earlier one V1 and V2 are unchanged. There is a half a millimeter of ST elevation in leads 3 and aVF when compared the old one this is unchanged. This otherwise is a nonacute EKG but there is some concern for possible cardiac changes. Heart Score - Score History: Moderately Suspicious EKG: Non Specific repolarisation Disturbance Age: 45-65 Risk Factors: 1-2 risk factors Troponin: Less than normal limit HEART Score Total: 4 Attestation Statement - Attestation Attestation: I, Ronald Casas DO, examined this patient [id number] and my medical decision-making was reviewed with Dr. Jason Adams, Resident Physician. I agree with the documented findings, disposition and treatment plan as described except to the extent set forth below. Please see my progress notes for details. 62-year-old female presents to emergency room complaining of chest pain. She has had this happen multiple times in past when she gets in arguments or confrontations at home. Typically resolves with Ativan. She has been admitted multiple times and then several cardiac evaluations that were all nondiagnostic. Patient denies any history of stents or catheterization. She is currently on Plavix secondary to a previous stroke. Patient denies any other complaints or issues at this point. Patient is alert oriented speaking full sentences head is atraumatic pupils are equal and reactive. Lungs are clear heart is regular. Patient does move all 4 extremities with purpose. She has no abdominal pain or discomfort. Patient says the symptoms of been persistent throughout the course of care. Initial EKG collected showing T-wave inversion in lead aVL with a 0.5 mm elevation in 3 and aVF with no reciprocal changes at this time. This is reviewed and compared to an EKG previously collected that looks identical and morphology. Patient will repeat EKG collected at 30 minutes as well as symptomatic control. Fluids to be provided secondary to the hypotension. Patient will have symptomatic control with fluids at this point and discuss morphine and nitroglycerin as needed or tolerated. Patient is concerning for ACS or cardiac evaluation this point. Patient is otherwise stable. Will have admission process completed one symptoms are controlled labs are resulted. See detailed documentation of physical exam, medical intervention, medical intervention and disposition and the resident physician's note [id number] Patient has negative laboratory workup.. Echocardiogram and stress test reviewed by myself. No recent history of cardiac related issues. Consultation placed to the hospitalist for admission. No other concerns or complaints noted. Patient will be admitted for cardiac evaluation of what appears to be exertional anginal presentation with no acute etiology. Patient is otherwise stable blood pressure is stabilized pain medication provided. Patient will be admitted for definitive evaluation and management.
[2017-09-03] MEDS ORDERED: Nitroglycerin 25 MG/250 ML INFUS..BTL IVC SCH (19:45)
[2017-09-03 20:28] LABS: BUN/Creatinine Ratio 23 (6-26); Blood Urea Nitrogen 18 mg/dL (7-20); Calcium 9.3 mg/dL (8.6-10.8); Carbon Dioxide 24 mEq/L (19-29); Chloride 97 mEq/L (98-109); Glucose 318 mg/dL (70-99); Osmolality,Calculated 288 (280-300); Potassium 4.4 mEq/L (3.5-4.5); Sodium 132 mEq/L (136-145); eGFR For African Americans > 60 (> 60); eGFR For Non-African Americans > 60 (> 60)
[2017-09-04] MEDS: *HR* Morphine 2 MG/ML SYRINGE IVP PRN ×2 (02:05→08:12)
[2017-09-04] MEDS ORDERED: Dextrose Gel 15 GM PO PRN ×2 (06:35)
[2017-09-04] MEDS ORDERED: *HR* Dextrose 50 % in Water (Syg) 50 ML SYRINGE IVP PRN (06:35)
[2017-09-04] MEDS ORDERED: Ondansetron 4 MG/2 ML VIAL IVP PRN (06:35)
[2017-09-04] MEDS ORDERED: Acetaminophen 325 MG TABLET PO PRN (06:35)
[2017-09-04] MEDS ORDERED: D5% in Water 1,000 ML IVC PRN (06:35)
[2017-09-04] MEDS ORDERED: Naloxone 0.4 MG/ML INJ IVP PRN (06:35)
--- NOTE | 2017-09-04 06:45 | Internal Med History&Physical ---
Date of Encounter: 09/04/17 Time of Encounter: 06:41 Assessment and Plan (1) Chest pain Current visit: No Status: Resolved 1. Will cycle troponins and EKG's. 2. Keep npo and consult cardiology. 3. Given prolonged QTc, will hold Cymbalta and Tessalon. 4. Continue other home meds as appropriate. Qualifiers: Chest pain type: other chest pain Qualified Code(s): R07.89 - Other chest pain; R07.8 - Other chest pain (2) Diabetes mellitus Current visit: No Status: Chronic 1. Hold oral meds and basal insulin while npo. 2. Will place on SSI and adjust dose as necessary. Qualifiers: Diabetes mellitus type: type 2 Diabetes mellitus complication status: with hyperglycemia Diabetes mellitus correction insulin use: with assistant terminal manager use Qualified Code(s): E11.65 - Type 2 diabetes mellitus with hyperglycemia; Z79.4 - custodial (current) use of insulin (3) Anxiety Current visit: No Status: Chronic 1. Continue home meds except for Cymbalta. 2. May need to consider other medication than Cymbalta if this medication is related to QT prolongation. 3. Patient follows with outpatient mental health -- recommend close follow up. (4) DVT prophylaxis Current visit: Yes Status: Acute 1. Heparin SQ. Internal Medicine - H&P: HPI Chief complaint: chest pain Admitted From: Emergency Dept Plans for Post Hospital Care: Home History of present illness: Ms. Garay is a 62 year old female who presents the ER tonight with complaints of chest pain. She developed chest pain after having a verbal argument with her daughter and her mother. She became quite anxious, nervous, angry, and subsequently developed chest pain thereafter. Because chest pain persisted, she called 911 and she was brought to the ER. She had initial workup in the ER and was then admitted to the hospitalist service for chest pain. She has had 2 troponins negative so far. Her EKG is unremarkable except for prolonged QT interval. She is currently chest pain-free. She did have a stress test done less than 2 months ago, which was negative. She denies any prior heart disease but she has had a stroke in the past. She is a former smoker and quit 10 years ago. Family history is pertinent for heart disease. Given the above history, I suspect she had a panic attack leading to the chest pain. I do not feel she is having anginal type chest pain. However, she does carry significant cardiac risk factors. Given her recurrent chest pain and risk factors, I will consult cardiology to evaluate patient. Past Med Surg Social Fam HX - Past Medical History Attestation: Yes The following information was validated with the patient. Source: patient, old records reviewed Medical history: arthritis, CHF, COPD, CVA, diabetes, hyperlipidemia, hypertension, TIA Psychiatric history: anxiety, depression - Past Surgical History Surgical History: hip replacement, orthopedic, other - Social History Smoking Status: Former smoker Smokeless Tobacco Status: No Alcohol use: none Drug use: none Current living situation: Home Activity Level: Independent ambulation - Family History Mother Living Status: Still Living Hx Family Cardiac Disorders: Yes Hx Family Endocrine Disorder: Yes (DM) Father Living Status: Hx Family Cardiac Disorders: Yes (murmur) Hx Family Respiratory Disorders: Yes Hx Family Cancer: Yes (lung) Hx Family GI Disorders: No Hx Family Endocrine Disorder: Yes Hx Family Neuromuscular Disorders: No Hx Family Neurologic Disorders: No Hx Family HEENT Disorders: No Hx Family Autoimmune Disorders: No Internal Medicine - H&P: Meds Furosemide [Lasix] 20 mg PO QAM 11/15/15 [History] Insulin ASPART [Novolog] 0 unit SQ TIDWM 11/15/15 [History] metFORMIN [Glucophage] 1,000 mg PO BID 11/15/15 [History] Albuterol Sulfate [Albuterol Inhaler] 2 puff IH Q4-6H PRN 09/01/16 [History] Aspirin [Ecotrin] 325 mg PO DAILY 10/20/16 [History] Lisinopril [Zestril] 40 mg PO QAM 11/04/16 [History] Budesonide/Formoterol 80/4.5 [Symbicort 80/4.5] 2 puff IH QID 02/25/17 [History ] DULoxetine [Cymbalta] 60 mg PO DAILY 02/25/17 [History] Atorvastatin [Lipitor] 40 mg PO HS 04/28/17 [History] Clopidogrel [Plavix] 75 mg PO DAILY 04/28/17 [History] Insulin Glargine [Lantus] 50 unit SQ QAM 04/28/17 [History] Oxygen 3 l NS HS 06/27/17 [History] ALPRAZolam [Xanax 0.5 MG Tablet] 0.5 mg PO TID PRN #14 07/08/17 [Rx] Docusate [Colace] 100 mg PO DAILY 07/08/17 [Rx] Sodium Chloride 1 gm PO DAILY tab 07/08/17 [Rx] Tramadol HCl [Ultram] 50 mg PO TID PRN #20 tab 07/08/17 [Rx] Benzonatate [Tessalon] 100 mg PO TID PRN 09/03/17 [History] Gabapentin [Neurontin] 800 mg PO TID 09/03/17 [History] Guaifenesin [Mucinex] 600 mg PO BID 09/03/17 [History] Insulin Glargine [Lantus] 54 unit SQ HS 09/03/17 [History] 3 Allergy/AdvReac Type Severity Reaction Status Date / Time fluoxetine [From Prozac] AdvReac ams Verified 04/28/17 19:28 naproxen [From Naprosyn] AdvReac Gastrointestinal Verified 10/20/16 17:19 Upset pioglitazone [From Actos] AdvReac Gastrointestinal Verified 10/20/16 17:19 Upset - Constitutional Constitutional: no chills, no fever(s) - EENT Eyes: no blurry vision, no change in vision Ears: no ear pain, no tinnitus Nose, mouth and throat: no nasal congestion, no nasal discharge, no sore throat - Cardiovascular Cardiovascular ROS IM: chest pain, no diaphoresis, no dyspnea, no dyspnea on exertion, no lightheadedness, no palpitations, no syncope - Respiratory Respiratory: no cough, no dyspnea, no hemoptysis - Gastrointestinal Gastrointestinal: no abdominal pain, no diarrhea, no hematemesis, no hematochezia, no melena, no nausea, no vomiting - Genitourinary Genitourinary: no dysuria, no flank pain, no hematuria - Musculoskeletal Musculoskeletal ROS IM: arthralgias, back pain - Integumentary Integumentary IM: no rash, no jaundice - Neurological Neurological ROS: no dizziness, no focal weakness, no frequent falls, no headache(s) - Psychiatric Psychiatric: anxiety, panic attacks - Endocrine Endocrine IM: no polydipsia, no polyuria - Allergic/Immunologic Allergic/Immunologic: no wheezing, no GI upset with certain foods - Constitutional Vitals: Temp Pulse Resp BP Pulse Ox 98 F 56 18 92/58 95 09/04/17 03:18 09/04/17 03:18 09/04/17 03:18 09/04/17 03:18 09/04/17 03:18 General appearance: Present: cooperative, A&O X 3, pleasant Exam: anxious, nervous, otherwise no acute distress - Head Head exam: Present: atraumatic, normal inspection - Eye Eye exam: Present: EOMI, normal appearance, PERRL. Absent: scleral icterus Pupils: Present: normal accommodation - ENT ENT exam: Present: mucous membranes dry, normal exam - Neck Neck exam general surgery: Present: full ROM, supple. Absent: tenderness, nuchal rigidity - Respiratory Respiratory exam: Present: CTAB. Absent: chest wall tenderness, prolonged expiratory phase, rales, rhonchi, wheezes - Cardiovascular Cardiovascular exam: Present: RRR, +S1, +S2. Absent: diastolic murmur, JVD, systolic murmur - GI/Abdominal GI/Abdominal exam: Present: normal bowel sounds, soft. Absent: guarding, hepatomegaly, rebound, splenomegaly, tenderness - Extremities Exam Extremities exam: Present: normal capillary refill, warm. Absent: calf tenderness, joint swelling, tenderness - Back Exam Back exam: Absent: CVA tenderness (L), CVA tenderness (R) - Neurological Exam Neurological exam: Present: alert, CN II-XII intact, oriented X3, no focal deficits - Psychiatric Psychiatric exam: Present: anxious. Absent: normal affect, normal mood - Skin Skin exam: Present: dry, warm. Absent: rash Internal Med - H&P Results - Labs CBC & Chem 7: 09/03/17 19:15 09/03/17 19:15 Labs: Cardiac Enzymes 09/04/17 Range/Units 04:43 Troponin I 0.00 (0-0.03) ng/mL - EKG Data -: EKG Interpreted by Myself EKG shows normal: sinus rhythm - EKG Data Prior EKG available for review: yes EKG comments: 09/04/17 06:50 Sinus arrhythmia with prolonged QTc; no acute ST-T changes. - Diagnostic Studies Chest x-ray Status: image reviewed by me (negative)
[2017-09-04 07:10] LABS: Basophils % 0.4 %; Eosinophils # 0.2 K/mcL (0.0-0.6); Eosinophils % 3.3 %; Hematocrit 40.1 % (35.3-44.9); Hemoglobin 13.6 g/dL (11.5-15.4); Immature Granulocytes % 0.1 % (0-4); Lymphocytes # 2.5 K/mcL (0.6-4.6); Lymphocytes % 36.7 %; Mean Corpuscular HGB Conc 33.9 g/dL (31.6-35.5); Mean Corpuscular Hemoglobin 29.6 pg (28.0-33.3); Mean Corpuscular Volume 87.2 fL (83.0-100.0); Mean Platelet Volume 9.6 fL (9.4-12.4); Monocytes # 0.5 K/mcL (0.0-1.3); Neutrophils # 3.5 K/mcL (1.6-8.9); Platelet Count 227 K/mcL (140-400); Red Cell Distribution Width 12.7 % (11.5-14.5); Segmented Neutrophils % 51.5 %
[2017-09-04 07:25] LABS: Alanine Aminotransferase 13 Units/L (0-55); Albumin/Globulin Ratio 0.9 (1.1-2.2); Alkaline Phosphatase 88 Units/L (38-126); Aspartate Amino Transferase 16 Units/L (5-34); BUN/Creatinine Ratio 23 (6-26); Bilirubin,Total 0.5 mg/dL (0.2-1.2); Blood Urea Nitrogen 17 mg/dL (7-20); Calcium 8.5 mg/dL (8.6-10.8); Carbon Dioxide 27 mEq/L (19-29); Chloride 98 mEq/L (98-109); Chol/HDL Ratio 6.9 (0-4.9); Cholesterol 256 mg/dL (< 200); Globulin 3.2 g/dL (2.4-3.5); Glucose 225 mg/dL (70-99); HDL Cholesterol 37 mg/dL (40-59); LDL Cholesterol,Calculated 174 mg/dL (0-99); Magnesium 1.7 mg/dL (1.6-2.6); Osmolality,Calculated 283 (280-300); Potassium 3.9 mEq/L (3.5-4.5); Sodium 132 mEq/L (136-145); Total Protein 6.2 g/dL (6.0-8.3); Triglycerides 223 mg/dL (< 150); eGFR For African Americans > 60 (> 60); eGFR For Non-African Americans > 60 (> 60)
[2017-09-04] MEDS: *HR* Heparin 5,000 UNIT/ML VIAL SQ SCH ×3 (07:27→21:15)
--- NOTE | 2017-09-04 08:53 | Cardiology Consult Note ---
Date of Encounter: 09/04/17 Time of Encounter: 08:53 Assessment and Plan (1) Chest pain Current Visit: Yes Status: Acute Trop neg x2 EKG review shows NSR with QTc prolongation of 472. No ischemic changes noted Chest pain resolved ECHO 07/02/17 with EF 65% with otherwise benign exam Pharmacologic stress testing on 07/03/17 showed no signs of ischemic changes on EKG or on perfusion imaging Recommend no further testing or intervention at this time. Continue medical management and discuss d/c of Cymbalta with PCP. Outpatient followup set. Cardiology will sign off at this time. Please re-consult if there are any questions or concerns in the future. Thanks for involving us in Ms. Whitten's care. Qualifiers: Chest pain type: chest pain on breathing Qualified Code(s): R07.1 - Chest pain on breathing; R07.81 - Pleurodynia (2) Anxiety Current Visit: No Status: Chronic Patient is taking cymbalta and xanax for these concerns at home Previous bouts of chest pain were associated with anxiety related events Agree with holding of Cymbalta with QTc prolongation Monitor for improvement and discuss continuation on discharge (3) COPD (chronic obstructive pulmonary disease) Current Visit: No Status: Chronic Patient on 3L oxygen at night, continue symbicort and albulterol PRN Medicine managing Qualifiers: COPD type: unspecified COPD Qualified Code(s): J44.9 - Chronic obstructive pulmonary disease, unspecified (4) HTN (hypertension) Current Visit: No Status: Chronic Qualifiers: Hypertension type: essential hypertension Qualified Code(s): I10 - Essential (primary) hypertension (5) Hyperlipidemia Current Visit: No Status: Chronic Continue Lipitor 40 Most recent Lipid panel: Laboratory Tests 09/04/17 07:04 Triglycerides 223 H Cholesterol 256 H LDL Cholesterol, Calc 174 H VLDL Cholesterol, Calc 45 H HDL Cholesterol 37 L Cholesterol/HDL Ratio 6.9 H Qualifiers: Hyperlipidemia type: unspecified Qualified Code(s): E78.5 - Hyperlipidemia , unspecified (6) History of CVA (cerebrovascular accident) Current Visit: No Status: Chronic ASA, plavix, Statin therapy (7) Obesity (BMI 30-39.9) Current Visit: No Status: Chronic Discussion w patient/family: The assessment and plan as outlined above was discussed with the patient and/or family members who expressed understanding and agreement. All questions were answered. Thank you for involving us in the care of your patient. Please call with any questions. History of Present Illness Chief complaint: chest pain History of present illness: Ms. Garay is a very pleasant 62 year old female with a past medical history of COPD (3L O2 at night), IDDM, Hyperlipidemia, depression, anxiety and CVA ( residual deficits) who presented to the [facility] with a chief complaint of chest pain. She states the pain started after her mother and daughter were arguing at home. Patient felt increasingly anxious with palpitations that led to non- radiating chest pain that was worsened with deep inspiration. The pain last about 2-3 minutes. There was associated lightheadedness and nausea. Patient states "I've felt this pain several times before when I get anxious". On arrival to the ED, vitals were stable and she received pain medication and fluids. CXR and Head CT were negative. EKG revealed QTc prolongation of 472. No ischemic changes. Trop neg x2. She was subsequently admitted via the hospitalist service for chest pain and thus, cardiology was consulted. On evaluation, she reports that she lives with her daughter, has concerns about her anxiety levels and is able to walk with a walker or cane. She is currently experiencing no chest pain. Patient states she eats a "regular diet". She quit smoking 10 years ago but did smoke 2PPD for 35 years. No EtOH. No family cardiac history. EMR review demonstrates ECHO 07/02/17 with EF 65% with otherwise benign exam and pharmacologic stress testing on 07/03/17 showed no signs of ischemic changes on EKG or on perfusion imaging. We will continue to follow patient and offer further recommendations. Past Med Surg Social Fam HX - Past Medical History Medical history: arthritis, CHF, COPD, CVA, diabetes, hyperlipidemia, hypertension, TIA Psychiatric history: anxiety, depression - Past Surgical History Surgical History: hip replacement, orthopedic, other - Social History Smoking Status: Former smoker Smokeless Tobacco Status: No Alcohol use: none Drug use: none - Family History Mother Living Status: Still Living Hx Family Cardiac Disorders: Yes Hx Family Endocrine Disorder: Yes (DM) Father Living Status: Hx Family Cardiac Disorders: Yes (murmur) Hx Family Respiratory Disorders: Yes Hx Family Cancer: Yes (lung) Hx Family GI Disorders: No Hx Family Endocrine Disorder: Yes Hx Family Neuromuscular Disorders: No Hx Family Neurologic Disorders: No Hx Family HEENT Disorders: No Hx Family Autoimmune Disorders: No Medications and Allergies Furosemide [Lasix] 20 mg PO QAM 11/15/15 [History] Insulin ASPART [Novolog] 0 unit SQ TIDWM 11/15/15 [History] metFORMIN [Glucophage] 1,000 mg PO BID 11/15/15 [History] Albuterol Sulfate [Albuterol Inhaler] 2 puff IH Q4-6H PRN 09/01/16 [History] Aspirin [Ecotrin] 325 mg PO DAILY 10/20/16 [History] Lisinopril [Zestril] 40 mg PO QAM 11/04/16 [History] Budesonide/Formoterol 80/4.5 [Symbicort 80/4.5] 2 puff IH BID 02/25/17 [History ] DULoxetine [Cymbalta] 60 mg PO DAILY 02/25/17 [History] Atorvastatin [Lipitor] 40 mg PO HS 04/28/17 [History] Clopidogrel [Plavix] 75 mg PO DAILY 04/28/17 [History] Insulin Glargine [Lantus] 50 unit SQ QAM 04/28/17 [History] Oxygen 3 l NS HS 04/28/17 [History] ALPRAZolam [Xanax 0.5 MG Tablet] 0.5 mg PO TID PRN #14 07/08/17 [Rx] Docusate [Colace] 100 mg PO DAILY 07/08/17 [Rx] Sodium Chloride 1 gm PO DAILY tab 07/08/17 [Rx] Tramadol HCl [Ultram] 50 mg PO TID PRN #20 tab 07/08/17 [Rx] Benzonatate [Tessalon] 100 mg PO TID PRN 09/03/17 [History] Gabapentin [Neurontin] 800 mg PO TID 09/03/17 [History] Guaifenesin [Mucinex] 600 mg PO BID 09/03/17 [History] Insulin Glargine [Lantus] 54 unit SQ HS 09/03/17 [History] 3 Allergy/AdvReac Type Severity Reaction Status Date / Time fluoxetine [From Prozac] AdvReac ams Verified 04/28/17 19:28 naproxen [From Naprosyn] AdvReac Gastrointestinal Verified 10/20/16 17:19 Upset pioglitazone [From Actos] AdvReac Gastrointestinal Verified 10/20/16 17:19 Upset All Systems Review: A 10-system review of systems was performed and is negative for pertinent findings except as documented above in the HPI. - Constitutional Constitutional: no headache(s) - EENT Eyes: no blurred vision - Cardiovascular Cardiovascular: as per HPI - Respiratory Respiratory: dyspnea - Gastrointestinal Gastrointestinal: no abdominal pain - Genitourinary Genitourinary: no dysuria - Neurological Neurological: other (h/o CVA with facial droop) - Psychiatric Psychiatric: anxiety, depression Physical Examination Vital Signs, Last 4 Hours Temp Pulse Resp BP Pulse Ox 09/04/17 07:00 98.8 F 57 16 90/56 95 General: Conversant, No Apparent Distress HEENT: Atraumatic, Normocephaly, Mucus Membranes Moist Neck: No JVD, Normal carotid pulses Cardiac: Reg Rate and Rhythm, Normal S1 and S2, No Murmur Lungs: Normal Breath Sounds, Other (wheezing) Neuro: Alert and responsive, Other (resdiual deficit present with left facial droop) Abdomen: Soft, Non-Tender Skin: No rashes noted on visualized skin Musculoskeletal: No Chest Wall Tenderness Extremities: No Clubbing, No Cyanosis, No Edema, Normal Pulses Results 09/04/17 07:04 09/04/17 07:04 Lab Results 09/04/17 09/04/17 09/04/17 04:43 07:04 07:04 WBC 6.7 Hgb 13.6 Hct 40.1 Plt Count 227 Sodium 132 L Potassium 3.9 Chloride 98 Carbon Dioxide 27 BUN 17 Creatinine 0.74 Glucose 225 H Calcium 8.5 L Magnesium 1.7 Total Bilirubin 0.5 AST 16 ALT 13 Alkaline Phosphatase 88 Troponin I 0.00 - Imaging and Cardiology Chest Xray: report reviewed - EKG Interpretation EKG results cardiology: personally reviewed, normal ECG (with mild QTC prolongation), no diagnostic ischemia Consult Discharge Plan - Plan Referrals: Sharla Decker [Primary Care Provider] - 09/08/17 10:30 am
[2017-09-04] MEDS: Furosemide 20 MG TABLET PO SCH (10:32)
[2017-09-04] MEDS: Aspirin Enteric Coated 325 MG Tablet PO SCH (10:32)
[2017-09-04] MEDS: Gabapentin 400 MG CAPSULE PO SCH ×3 (10:32→21:15)
[2017-09-04] MEDS: ALPRAZolam 0.5 MG TABLET PO PRN (10:36)
[2017-09-04] MEDS: Insulin LISPRO 300 UNITS/3 ML VIAL SQ SCH ×3 (12:26→21:15)
--- NOTE | 2017-09-04 17:02 | Event Note ---
Date of Encounter: 09/04/17 Time of Encounter: 17:01 Chart reviewed. Patient admitted 09/04/2017 with complaints of chest pain. She is evaluated by cardiology who recommended medical management at this time. Case discussed with social science professor and patient will remain hospitalized until ECF placement is secured as she does not have a safe disposition.
[2017-09-04] MEDS: Budesonide/Formoterol 80/4.5 MDI IH SCH (20:34)
[2017-09-04] MEDS: Insulin DETEMIR 100 UNIT/ML X5UNITS SQ SCH (21:16)
[2017-09-05 02:51] LABS: Hematocrit 41.2 % (35.3-44.9); Hemoglobin 13.6 g/dL (11.5-15.4); Mean Corpuscular Hemoglobin 29.6 pg (28.0-33.3); Mean Corpuscular Volume 89.8 fL (83.0-100.0); Mean Platelet Volume 10.2 fL (9.4-12.4); Platelet Count 215 K/mcL (140-400); Red Blood Count 4.59 M/mcL (3.82-4.97); Red Cell Distribution Width 12.6 % (11.5-14.5)
[2017-09-05 03:19] LABS: BUN/Creatinine Ratio 22 (6-26); Blood Urea Nitrogen 18 mg/dL (7-20); Calcium 8.8 mg/dL (8.6-10.8); Carbon Dioxide 25 mEq/L (19-29); Chloride 98 mEq/L (98-109); Glucose 360 mg/dL (70-99); Osmolality,Calculated 292 (280-300); Potassium 4.4 mEq/L (3.5-4.5); Sodium 133 mEq/L (136-145); eGFR For African Americans > 60 (> 60); eGFR For Non-African Americans > 60 (> 60)
[2017-09-05] MEDS ORDERED: traMADol 50 MG TABLET PO PRN (03:28)
[2017-09-05] MEDS: *HR* Heparin 5,000 UNIT/ML VIAL SQ SCH ×3 (05:57→21:53)
[2017-09-05] MEDS: Budesonide/Formoterol 80/4.5 MDI IH SCH ×2 (08:03→20:50)
[2017-09-05] MEDS: Insulin LISPRO 300 UNITS/3 ML VIAL SQ SCH ×4 (09:15→20:12)
[2017-09-05] MEDS: Aspirin Enteric Coated 325 MG Tablet PO SCH (09:16)
[2017-09-05] MEDS: Furosemide 20 MG TABLET PO SCH (09:16)
[2017-09-05] MEDS: Gabapentin 400 MG CAPSULE PO SCH ×3 (09:16→20:11)
[2017-09-05] MEDS: Insulin DETEMIR 100 UNIT/ML X5UNITS SQ SCH ×2 (09:16→20:12)
[2017-09-05] MEDS: *HR* Morphine 2 MG/ML SYRINGE IVP PRN (09:24)
[2017-09-05] MEDS: ALPRAZolam 0.5 MG TABLET PO PRN (09:24)
--- NOTE | 2017-09-05 10:47 | Electrocardiograph Report ---
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
--- NOTE | 2017-09-05 10:59 | Electrocardiograph Report ---
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
--- NOTE | 2017-09-05 13:25 | Internal Med Progress Note ---
Date of Encounter: 09/05/17 Time of Encounter: 13:24 - Assessment and plan (1) Chest pain Current Visit: Yes Status: Acute Assessment and plan: Bina Garay is a 62-year-old female with past medical history COPD, hypertension , diabetes and anxiety who presented to [facility] on 2016 with complaints of chest pain. She was placed in observation status for ACS rule out. 1. Chest pain: Patient reported episode of chest pain following an argument with family member. Resolves spontaneously. 06/2017 TTE with EF 65%. 07/2017 stress test negative. Evaluated by cardiology who recommended continuing medical management. Additionally patient refused any further cardiac workup. Chest pain resolved. 2. COPD: Per history. No evidence of exacerbation on exam. Continue home inhalers 3. Hypertension: Per history. BP controlled. Continue BP medication. Monitor BP and titrate PRN 4. Diabetes: Uncontrolled. Hgb A1c 12.6% on 06/2017. Holding home oral hypoglycemics. SSI. Monitor blood sugar and titrate PRN 5. DVT prophylaxis: heparin Disposition: ECF. Awaiting placement. Could possibly be on 2016-2016 Qualifiers: Chest pain type: chest pain on breathing Qualified Code(s): R07.1 - Chest pain on breathing; R07.81 - Pleurodynia (2) Diabetes mellitus type 2 in obese Current Visit: No Status: Acute (3) HTN (hypertension) Current Visit: No Status: Chronic Qualifiers: Hypertension type: essential hypertension Qualified Code(s): I10 - Essential (primary) hypertension - Subjective Interval history: Seen and examined at bedside. Patient is due to be, information obtained from chart review and patient report. Patient says she is feeling much better, she feels a little tired and did not sleep well last night otherwise has no complaints. Has not had any further chest pain. No shortness of breath. - Constitutional Vitals: Temp Pulse Resp BP Pulse Ox 98.3 F 63 16 115/71 94 09/05/17 11:31 09/05/17 11:31 09/05/17 11:31 09/05/17 11:31 09/05/17 11:31 General appearance: Present: cooperative, A&O X 3, morbidly obese, pleasant - Head Head exam: Present: atraumatic, normocephalic - Eye Eye exam: Present: PERRL, conjuntiva pink, sclera anicteric Pupils: Present: PERRL - Neck Neck exam general surgery: Present: supple, trachea midline. Absent: lymphadenopathy - Respiratory Respiratory exam: Present: CTAB. Absent: accessory muscle use, rales, rhonchi, wheezes - Cardiovascular Cardiovascular exam: Present: RRR, +S1, +S2. Absent: diastolic murmur, gallop, rubs, systolic murmur - GI/Abdominal GI/Abdominal exam: Present: normal bowel sounds, soft, no peritoneal signs. Absent: distended, tenderness - Extremities Exam Extremities exam: Present: warm, radial pulses palpable and symmetrical. Absent : calf tenderness, cyanotic, pedal edema - Neurological Exam Neurological exam: Present: CN II-XII intact, oriented X3, no focal deficits. Absent: pronater drift, facial droop, speech deficit - Skin Skin exam: Present: dry, intact Internal Medicine: Result - Labs CBC & Chem 7: 09/05/17 02:06 09/05/17 02:06 Labs: Short CBC 09/05/17 Range/Units 02:06 WBC 6.9 (4.3-11.1) K/mcL Hgb 13.6 (11.5-15.4) g/dL Hct 41.2 (35.3-44.9) % Plt Count 215 (140-400) K/mcL [facility] 09/05/17 02:06 Sodium 133 L Potassium 4.4 Chloride 98 Carbon Dioxide 25 BUN 18 Creatinine 0.83 Glucose 360 H Calcium 8.8 - ABG Interpretation ABG results: PT/INR, D-dimer PT 10.5 Seconds (9.4-12.1) 09/03/17 19:15 - VTE Documentation of Mechanical Device: Intermittent pneumatic compression device Consult Discharge Plan - Plan Referrals: Sharla Decker [Primary Care Provider] - 09/08/17 10:30 am
[2017-09-06] MEDS: *HR* Heparin 5,000 UNIT/ML VIAL SQ SCH ×3 (05:24→20:55)
[2017-09-06] MEDS: Furosemide 20 MG TABLET PO SCH (07:39)
[2017-09-06] MEDS: Gabapentin 400 MG CAPSULE PO SCH ×3 (07:39→20:55)
[2017-09-06] MEDS: Aspirin Enteric Coated 325 MG Tablet PO SCH (07:39)
[2017-09-06] MEDS: Insulin LISPRO 300 UNITS/3 ML VIAL SQ SCH ×3 (07:40→16:15)
[2017-09-06] MEDS: Budesonide/Formoterol 80/4.5 MDI IH SCH ×2 (07:57→22:27)
[2017-09-06] MEDS: Insulin DETEMIR 100 UNIT/ML X5UNITS SQ SCH ×2 (09:09→20:56)
--- NOTE | 2017-09-06 09:44 | Internal Med Progress Note ---
Date of Encounter: 09/06/17 Time of Encounter: 09:32 - Assessment and plan (1) Chest pain Current Visit: Yes Status: Acute Assessment and plan: Bina Garay is a 62-year-old female with past medical history COPD, hypertension , diabetes and anxiety who presented to [facility] on 2016 with complaints of chest pain. She was placed in observation status for ACS rule out. She was evaluated by cardiology who recommended continuing medical management as his pain resolved and patient did not want further intervention. Hospitalization prolonged due to unsafe disposition and need for placement. 1. Chest pain: Patient reported episode of chest pain following an argument with family member. Resolved spontaneously. 06/2017 TTE with EF 65%. 07/2017 stress test negative. Evaluated by cardiology who recommended medical management. Continue ASA, Plavix, statin. 2. COPD: Per history. No evidence of exacerbation on exam. Continue home inhalers 3. Hypertension: Per history. BP controlled. Continue BP medication. Monitor BP and titrate PRN 4. Diabetes: Uncontrolled. Hgb A1c 12.6% on 06/2017. Holding home oral hypoglycemics. Continue home long-acting insulin. Blood sugars in the 200-300s , increase SSI to high scale. Monitor blood sugar and titrate PRN 5. Hyperlipidemia: LDL 174. Continue home statin. 7. Abdominal hernia: Appears to have large ventral hernia on exam. With intermittent lower abdominal pain. ABD CT pending 8. DVT prophylaxis: heparin Disposition: SNF. Awaiting placement. Qualifiers: Chest pain type: chest pain on breathing Qualified Code(s): R07.1 - Chest pain on breathing; R07.81 - Pleurodynia (2) Diabetes mellitus type 2 in obese Current Visit: No Status: Acute (3) HTN (hypertension) Current Visit: No Status: Chronic Qualifiers: Hypertension type: essential hypertension Qualified Code(s): I10 - Essential (primary) hypertension - Subjective Interval history: Seen and examined at bedside. Says she slept well last night. No recurrence of chest pain or shortness of breath. She does report intermittent lower abdominal pain which she says is secondary to her ovaries. Appears to have abdominal hernia which she states she has not been imaged or addressed. No loose stool or constipation. - Constitutional Vitals: Temp Pulse Resp BP Pulse Ox 98.0 F 64 18 119/78 96 09/06/17 06:47 09/06/17 06:47 09/06/17 07:57 09/06/17 06:47 09/06/17 07:57 General appearance: Present: cooperative, A&O X 3, morbidly obese, pleasant - Head Head exam: Present: atraumatic, normocephalic - Eye Eye exam: Present: PERRL, conjuntiva pink, sclera anicteric Pupils: Present: PERRL - Neck Neck exam general surgery: Present: supple, trachea midline. Absent: lymphadenopathy - Respiratory Respiratory exam: Present: CTAB. Absent: accessory muscle use, rales, rhonchi, wheezes - Cardiovascular Cardiovascular exam: Present: RRR, +S1, +S2. Absent: diastolic murmur, gallop, rubs, systolic murmur - GI/Abdominal GI/Abdominal exam: Present: hernia, normal bowel sounds, soft, no peritoneal signs. Absent: distended, tenderness Additional comments: Obese - Extremities Exam Extremities exam: Present: warm, radial pulses palpable and symmetrical. Absent : calf tenderness, cyanotic, pedal edema - Neurological Exam Neurological exam: Present: CN II-XII intact, oriented X3, no focal deficits. Absent: pronater drift, facial droop, speech deficit - Skin Skin exam: Present: dry, intact Internal Medicine: Result - Labs CBC & Chem 7: 09/05/17 02:06 09/05/17 02:06 - ABG Interpretation ABG results: PT/INR, D-dimer PT 10.5 Seconds (9.4-12.1) 09/03/17 19:15 - VTE Documentation of Mechanical Device: Intermittent pneumatic compression device Consult Discharge Plan - Plan Referrals: Sharla Decker [Primary Care Provider] - 09/08/17 10:30 am
[2017-09-06] MEDS: ALPRAZolam 0.5 MG TABLET PO PRN (20:55)
[2017-09-06] MEDS ORDERED: Insulin LISPRO 300 UNITS/3 ML VIAL SQ SCH (21:00)
[2017-09-07] MEDS: *HR* Heparin 5,000 UNIT/ML VIAL SQ SCH ×2 (06:07→13:51)
[2017-09-07] MEDS: Furosemide 20 MG TABLET PO SCH (08:11)
[2017-09-07] MEDS: Aspirin Enteric Coated 325 MG Tablet PO SCH (08:11)
[2017-09-07] MEDS: Gabapentin 400 MG CAPSULE PO SCH ×2 (08:11→13:51)
[2017-09-07] MEDS: Insulin LISPRO 300 UNITS/3 ML VIAL SQ SCH ×2 (08:12→11:23)
[2017-09-07] MEDS: Insulin DETEMIR 100 UNIT/ML X5UNITS SQ SCH (08:12)
[2017-09-07] MEDS: Budesonide/Formoterol 80/4.5 MDI IH SCH (10:49)
[2017-09-07 11:21] VITALS: BP 118/67
[2017-09-07] MEDS: ALPRAZolam 0.5 MG TABLET PO PRN (11:23)
--- NOTE | 2017-09-07 13:29 | Internal Med Progress Note ---
Date of Encounter: 09/07/17 Time of Encounter: 14:19 - Assessment and plan (1) Chest pain Current Visit: Yes Status: Acute Assessment and plan: Bina Garay is a 62-year-old female with past medical history COPD, hypertension , diabetes and anxiety who presented to [facility] on 2016 with complaints of chest pain. She was placed in observation status for ACS rule out. She was evaluated by cardiology who recommended continuing medical management as his pain resolved and patient did not want further intervention. Hospitalization prolonged due to unsafe disposition and need for placement. 1. Chest pain: Patient reported episode of chest pain following an argument with family member. Resolved spontaneously. 06/2017 TTE with EF 65%. 07/2017 stress test negative. Evaluated by cardiology who recommended medical management. Continue ASA, Plavix, statin. 2. COPD: Per history. No evidence of exacerbation on exam. Continue home inhalers 3. Hypertension: Per history. BP controlled. Continue BP medication. Monitor BP and titrate PRN 4. Diabetes: Uncontrolled. Hgb A1c 12.6% on 06/2017. Holding home oral hypoglycemics. Continue home long-acting insulin. Blood sugars in the 200-300s , increase SSI to high scale. Monitor blood sugar and titrate PRN 5. Hyperlipidemia: LDL 174. Continue home statin. 7. Abdominal hernia: with abdominal bulging on exam. ABD CT with small umbilical hernia and stable laxity of inferior, anterior abdominal wall. 8. DVT prophylaxis: heparin Disposition: SNF. Awaiting placement. Qualifiers: Chest pain type: chest pain on breathing Qualified Code(s): R07.1 - Chest pain on breathing; R07.81 - Pleurodynia (2) Diabetes mellitus type 2 in obese Current Visit: No Status: Acute (3) HTN (hypertension) Current Visit: No Status: Chronic Qualifiers: Hypertension type: essential hypertension Qualified Code(s): I10 - Essential (primary) hypertension - Subjective Interval history: Seen and examined at bedside. No changes in assessment to report. Still awaiting placement.. - Constitutional Vitals: Temp Pulse Resp BP Pulse Ox 99.5 F 68 16 118/67 95 09/07/17 11:20 09/07/17 11:20 09/07/17 11:20 09/07/17 11:20 09/07/17 11:20 General appearance: Present: cooperative, A&O X 3, morbidly obese, pleasant - Head Head exam: Present: atraumatic, normocephalic - Eye Eye exam: Present: PERRL, conjuntiva pink, sclera anicteric Pupils: Present: PERRL - Neck Neck exam general surgery: Present: supple, trachea midline. Absent: lymphadenopathy - Respiratory Respiratory exam: Present: CTAB. Absent: accessory muscle use, rales, rhonchi, wheezes - Cardiovascular Cardiovascular exam: Present: RRR, +S1, +S2. Absent: diastolic murmur, gallop, rubs, systolic murmur - GI/Abdominal GI/Abdominal exam: Present: normal bowel sounds, soft, no peritoneal signs. Absent: distended, tenderness - Extremities Exam Extremities exam: Present: warm, radial pulses palpable and symmetrical. Absent : calf tenderness, cyanotic, pedal edema - Neurological Exam Neurological exam: Present: CN II-XII intact, oriented X3, no focal deficits. Absent: pronater drift, facial droop, speech deficit - Skin Skin exam: Present: dry, intact Internal Medicine: Result - Labs CBC & Chem 7: 09/05/17 02:06 09/05/17 02:06 - ABG Interpretation ABG results: PT/INR, D-dimer PT 10.5 Seconds (9.4-12.1) 09/03/17 19:15 - VTE Documentation of Mechanical Device: Intermittent pneumatic compression device Consult Discharge Plan - Plan Referrals: Sharla Decker [Primary Care Provider] - 09/08/17 10:30 am
--- NOTE | 2017-09-07 14:48 | Discharge Summary ---
Date of Encounter: 09/07/17 Time of Encounter: 14:46 - Discharge Diagnosis (1) Chest pain Priority: Primary Status: Acute Comments: Bina Garay is a 62-year-old female with past medical history COPD, hypertension , diabetes and anxiety who presented to [facility] on 2016 with complaints of chest pain. She was placed in observation status for ACS rule out. She was evaluated by cardiology who recommended continuing medical management as his pain resolved and patient did not want further intervention. Hospitalization prolonged due to unsafe disposition and need for placement. 1. Chest pain: Patient reported episode of chest pain following an argument with family member. Resolved spontaneously. 06/2017 TTE with EF 65%. 07/2017 stress test negative. Evaluated by cardiology who recommended medical management. Continue ASA, Plavix, statin. 2. COPD: Per history. No evidence of exacerbation on exam. Continue home inhalers 3. Hypertension: Per history. BP controlled. Continue BP medication. Monitor BP and titrate PRN 4. Diabetes: Uncontrolled. Hgb A1c 12.6% on 06/2017. Blood sugars in the 200- 300s and required SSI while inpatient. Cont home oral hypoglycemics and long- acting insulin. Recommend continuing sliding scale insulin at ECF, Will defer to ECF physician 5. Hyperlipidemia: LDL 174. Continue home statin. 7. Abdominal hernia: with abdominal bulging on exam. ABD CT with small umbilical hernia and stable laxity of inferior, anterior abdominal wall. Qualifiers: Chest pain type: chest pain on breathing Qualified Code(s): R07.1 - Chest pain on breathing; R07.81 - Pleurodynia (2) Diabetes mellitus type 2 in obese Priority: Primary Status: Acute (3) HTN (hypertension) Priority: Primary Status: Chronic Qualifiers: Hypertension type: essential hypertension Qualified Code(s): I10 - Essential (primary) hypertension - Discharge Medications Prescriptions: ALPRAZolam [Xanax 0.5 MG Tablet] 0.5 mg PO TID PRN #21 tablet PRN Reason: Anxiety Tramadol HCl [Ultram] 50 mg PO TID PRN #21 tab PRN Reason: Pain Home Medications: Furosemide [Lasix] 20 mg PO QAM 11/15/15 [History] Insulin ASPART [Novolog] 0 unit SQ TIDWM 11/15/15 [History] metFORMIN [Glucophage] 1,000 mg PO BID 11/15/15 [History] Albuterol Sulfate [Albuterol Inhaler] 2 puff IH Q4-6H PRN 09/01/16 [History] Aspirin [Ecotrin] 325 mg PO DAILY 10/20/16 [History] Lisinopril [Zestril] 40 mg PO QAM 11/04/16 [History] Budesonide/Formoterol 80/4.5 [Symbicort 80/4.5] 2 puff IH BID 02/25/17 [History ] DULoxetine [Cymbalta] 60 mg PO DAILY 02/25/17 [History] Atorvastatin [Lipitor] 40 mg PO HS 04/28/17 [History] Clopidogrel [Plavix] 75 mg PO DAILY 04/28/17 [History] Insulin Glargine [Lantus] 50 unit SQ QAM 04/28/17 [History] Oxygen 3 l NS HS 04/28/17 [History] Docusate [Colace] 100 mg PO DAILY 07/08/17 [Rx] Sodium Chloride 1 gm PO DAILY tab 07/08/17 [Rx] Benzonatate [Tessalon] 100 mg PO TID PRN 09/03/17 [History] Gabapentin [Neurontin] 800 mg PO TID 09/03/17 [History] Guaifenesin [Mucinex] 600 mg PO BID 09/03/17 [History] Insulin Glargine [Lantus] 54 unit SQ HS 09/03/17 [History] ALPRAZolam [Xanax 0.5 MG Tablet] 0.5 mg PO TID PRN #21 tablet 09/07/17 [Rx] Tramadol HCl [Ultram] 50 mg PO TID PRN #21 tab 09/07/17 [Rx] Allergies/Adverse Reactions: 3 Allergy/AdvReac Type Severity Reaction Status Date / Time fluoxetine [From Prozac] AdvReac ams Verified 04/28/17 19:28 naproxen [From Naprosyn] AdvReac Gastrointestinal Verified 10/20/16 17:19 Upset pioglitazone [From Actos] AdvReac Gastrointestinal Verified 10/20/16 17:19 Upset Procedures/tests Complete & Pending: Procedures Performed prior 72 hours Category Date Time Status CT abd pelvis wo iv oral only [CT] Routine Cat Scan 09/06/17 11:00 Completed ECG 12 lead ECG [ECG] AM 0600 Y 09/05/17 06:00 Ordered Date of admission: 09/03/17 22:00 Primary care physician: Sharla Decker Consults: 09/04/17 06:37 Consult to Physician [CONS] Routine Consulting Provider: Arsenio Sales Reason for Consult: recurrent chest pain; stress test negative 2 months ago Call Completed: No Discharging clinician: Mireya Rivers Anticipated date of discharge: 09/07/17 - Patient Status Disposition: Transfer LTC Condition: Good Functional capacity at discharge: independent ambulation Overall status at discharge: patient is back to baseline - Discharge Instructions Follow Up With: Sharla Decker [Primary Care Provider] - 09/08/17 10:30 am - Diet and Activity Activity: as per physical therapy Diet: diabetic diet, low fat, low cholesterol Interval History: See 09/07/2017 progress note for interval history Hospital course: See assessment and plan for hospital course - Time Spent with Patient Total time spent providing and/or coordinating discharge services: - Constitutional Vitals: Temp Pulse Resp BP Pulse Ox 99.5 F 68 16 118/67 95 09/07/17 11:20 09/07/17 11:20 09/07/17 11:20 09/07/17 11:20 09/07/17 11:20 General appearance: Present: cooperative, A&O X 3, morbidly obese, pleasant - Head Head exam: Present: atraumatic, normocephalic - Eye Eye exam: Present: PERRL, conjuntiva pink, sclera anicteric Pupils: Present: PERRL - Neck Neck exam general surgery: Present: supple, trachea midline. Absent: lymphadenopathy - Respiratory Respiratory exam: Present: CTAB. Absent: accessory muscle use, rales, rhonchi, wheezes - Cardiovascular Cardiovascular exam: Present: RRR, +S1, +S2. Absent: diastolic murmur, gallop, rubs, systolic murmur - GI/Abdominal GI/Abdominal exam: Present: normal bowel sounds, soft, no peritoneal signs. Absent: distended, tenderness - Extremities Exam Extremities exam: Present: warm, radial pulses palpable and symmetrical. Absent : calf tenderness, cyanotic, pedal edema - Neurological Exam Neurological exam: Present: CN II-XII intact, oriented X3, no focal deficits. Absent: pronater drift, facial droop, speech deficit - Skin Skin exam: Present: dry, intact - VTE Documentation of Mechanical Device: Intermittent pneumatic compression device
--- NOTE | 2017-09-07 14:54 | Physician Discharge Referral ---
ExtendedCare Referral Info Transfer To: [facility] Provider in Charge: Mireya Rivers Provider in Charge after Transfer: Other (ECF provider) Institutional Level of Care: Skilled - Diagnosis (1) Chest pain Status: Acute (2) Diabetes mellitus type 2 in obese Status: Acute (3) HTN (hypertension) Status: Chronic (4) CAD (coronary artery disease) Status: Acute (5) COPD (chronic obstructive pulmonary disease) Status: Chronic - Transfer Medications Prescriptions: ALPRAZolam [Xanax 0.5 MG Tablet] 0.5 mg PO TID PRN #21 tablet PRN Reason: Anxiety Tramadol HCl [Ultram] 50 mg PO TID PRN #21 tab PRN Reason: Pain Home Medications: Furosemide [Lasix] 20 mg PO QAM 11/15/15 [History] Insulin ASPART [Novolog] 0 unit SQ TIDWM 11/15/15 [History] metFORMIN [Glucophage] 1,000 mg PO BID 11/15/15 [History] Albuterol Sulfate [Albuterol Inhaler] 2 puff IH Q4-6H PRN 09/01/16 [History] Aspirin [Ecotrin] 325 mg PO DAILY 10/20/16 [History] Lisinopril [Zestril] 40 mg PO QAM 11/04/16 [History] Budesonide/Formoterol 80/4.5 [Symbicort 80/4.5] 2 puff IH BID 02/25/17 [History ] DULoxetine [Cymbalta] 60 mg PO DAILY 02/25/17 [History] Atorvastatin [Lipitor] 40 mg PO HS 04/28/17 [History] Clopidogrel [Plavix] 75 mg PO DAILY 04/28/17 [History] Insulin Glargine [Lantus] 50 unit SQ QAM 04/28/17 [History] Oxygen 3 l NS HS 04/28/17 [History] Docusate [Colace] 100 mg PO DAILY 07/08/17 [Rx] Sodium Chloride 1 gm PO DAILY tab 07/08/17 [Rx] Benzonatate [Tessalon] 100 mg PO TID PRN 09/03/17 [History] Gabapentin [Neurontin] 800 mg PO TID 09/03/17 [History] Guaifenesin [Mucinex] 600 mg PO BID 09/03/17 [History] Insulin Glargine [Lantus] 54 unit SQ HS 09/03/17 [History] ALPRAZolam [Xanax 0.5 MG Tablet] 0.5 mg PO TID PRN #21 tablet 09/07/17 [Rx] Tramadol HCl [Ultram] 50 mg PO TID PRN #21 tab 09/07/17 [Rx] Allergies/Adverse Reactions: 3 Allergy/AdvReac Type Severity Reaction Status Date / Time fluoxetine [From Prozac] AdvReac ams Verified 04/28/17 19:28 naproxen [From Naprosyn] AdvReac Gastrointestinal Verified 10/20/16 17:19 Upset pioglitazone [From Actos] AdvReac Gastrointestinal Verified 10/20/16 17:19 Upset - Respiratory Orders Oxygen / L per min (2 L via nasal cannula to maintain saturations greater than or equal to 92%) Smoking Cessation: Smoking cessation has been advised. For more information, call the [employer] Tobacco Quit Line at 8-142-LBWZ-NOW. - Advance Directives Code Status: Full Code - Mobility Orders Ambulate - Rehabiliation Orders Rehab Potential: Good Rehab Orders: Evaluation for Physical Therapy, Evaluation for Occupational Therapy - Diet Orders Regular, No Added Salt (PIEDAD), No Concentrated Sweets CERTIFICATION: I certify that the transfer of the above named patient to an Extended Care Facility is necessary for the continuing treatment of the diagnosis listed. The above information is true and accurate reflection of patient's current condition. Confidential - Redisclosure prohibited without a patient's written consent.
== END 2017-09-07 16:20 ==
LOC: 3BNU 19:04 → EMEROO 19:04 → 3BNU 22:49
PROVIDERS: ADMIT Internal Medicine; ATTEND Registered Nurse

== ENCOUNTER 2017-11-25 16:16 | Observation (INO) ==
[2017-11-25 16:38] LABS: Basophils # 0.1 K/mcL (0.0-0.2); Basophils % 0.7 %; Eosinophils # 0.2 K/mcL (0.0-0.6); Eosinophils % 2.2 %; Hematocrit 47.8 % (35.3-44.9); Immature Granulocytes % 0.5 % (0-4); Lymphocytes % 34.7 %; Mean Corpuscular HGB Conc 33.5 g/dL (31.6-35.5); Mean Corpuscular Hemoglobin 29.1 pg (28.0-33.3); Mean Corpuscular Volume 86.9 fL (83.0-100.0); Mean Platelet Volume 9.5 fL (9.4-12.4); Monocytes # 0.6 K/mcL (0.0-1.3); Monocytes % 7.1 %; Neutrophils # 4.8 K/mcL (1.6-8.9); Platelet Count 276 K/mcL (140-400); Red Cell Distribution Width 12.7 % (11.5-14.5); Segmented Neutrophils % 54.8 %
--- NOTE | 2017-11-25 16:44 | Emergency Department Note ---
Disposition Clinical Impression: Weakness Chest pain Qualifiers: Chest pain type: unspecified Qualified Code(s): R07.9 - Chest pain, unspecified CVA (cerebral vascular accident) Qualifiers: CVA mechanism: unspecified Qualified Code(s): I63.9 - Cerebral infarction, unspecified Disposition: Admitted As Inpatient Condition: Fair Time of Disposition: 17:23 Chest Pain HPI - General Chief Complaint: ED Chest Pain Stated Complaint: chest and left arm pain, slurred speach Time Seen by Provider: 11/25/17 16:19 Source: patient Mode of arrival: ambulatory Limitations: no limitations Vital Signs Reviewed: Yes Nursing Notes Reviewed: Yes - History of Present Illness HPI Narrative: 62-year-old female with a history of diabetes, hypertension, CVA presents for evaluation of chest pain left-sided weakness as well as slurred speech. Patient notes symptom onset was when she woke up this morning. Patient states that she woke up and noted slurred speech and left sided facial droop. Patient also noted intermittent chest pain throughout the day. Patient denies any dyspnea. Reports some nausea no vomiting. Patient states her prior CVA and left-sided weakness however this weakness appears worse. Severity scale (1-10): 10 - Related Data Home Medications Medication Instructions Recorded Confirmed Furosemide [Lasix] 20 mg PO QAM 11/15/15 11/25/17 Insulin ASPART [Novolog] 0 unit SQ TIDAC 11/15/15 11/25/17 metFORMIN [Glucophage] 1,000 mg PO BID 11/15/15 11/25/17 Albuterol Sulfate [Albuterol 2 puff IH Q4-6H PRN 09/01/16 11/25/17 Inhaler] Aspirin [Ecotrin] 325 mg PO DAILY 10/20/16 11/25/17 Lisinopril [Zestril] 40 mg PO QAM 11/04/16 11/25/17 Budesonide/Formoterol 80/4.5 2 puff IH BID 02/25/17 11/25/17 [Symbicort 80/4.5] DULoxetine [Cymbalta] 60 mg PO DAILY 02/25/17 11/25/17 Atorvastatin [Lipitor] 40 mg PO HS 04/28/17 11/25/17 Clopidogrel [Plavix] 75 mg PO DAILY 04/28/17 11/25/17 Insulin Glargine [Lantus] 50 unit SQ QAM 04/28/17 11/25/17 Oxygen 3 l NS HS 04/28/17 11/25/17 Insulin Glargine [Lantus] 54 unit SQ HS 09/03/17 11/25/17 ALPRAZolam [Xanax 1 MG Tablet] 1 mg PO TID PRN 11/25/17 11/25/17 Albuterol Neb [Proventil Neb] 2.5 mg IH Q6H PRN 11/25/17 11/25/17 Gabapentin [Neurontin] 800 mg PO TID 11/25/17 11/25/17 Allergies Allergy/AdvReac Type Severity Reaction Status Date / Time fluoxetine [From Prozac] AdvReac ams Verified 10/13/17 13:00 naproxen [From Naprosyn] AdvReac Gastrointestinal Verified 10/13/17 13:00 Upset pioglitazone [From Actos] AdvReac Gastrointestinal Verified 10/13/17 13:00 Upset All systems ED: reviewed and negative except as stated. Constitutional: Reports: as per HPI. Denies: fever Eyes: Reports: as per HPI ENT ED: Reports: as per HPI Cardiovascular: Reports: as per HPI, chest pain Respiratory: Reports: as per HPI. Denies: cough, dyspnea Gastrointestinal: Reports: as per HPI, nausea. Denies: abdominal pain Genitourinary: Reports: as per HPI Musculoskeletal: Reports: as per HPI Integumentary: Reports: as per HPI Neurological: Reports: as per HPI Psychiatric: Reports: as per HPI Endocrine: Reports: as per HPI Hematological/Lymphatic: Reports: as per HPI Chest Pain PMH - Past Medical History Medical history: Reports: arthritis, CHF, COPD, CVA, diabetes, hyperlipidemia, hypertension, TIA, other Surgical history: Reports: hip replacement, orthopedic, other Psychiatric history: Reports: anxiety, depression SKIRT CLIPPER history: Reports: bilateral tubal ligation - Social History Smoking Status: Former smoker Alcohol use: Reports: none Drug use: Reports: none Physical Exam - General Limitations: no limitations General appearance: alert, in no apparent distress - Head Head exam: atraumatic, normocephalic, normal inspection - Eye Eye exam: Present: normal appearance, EOMI - ENT ENT exam: normal exam, mucous membranes moist - Neck Neck exam: Present: normal inspection - Chest Chest inspection: Present: normal inspection, symmetric chest wall rise - Respiratory Respiratory exam: Present: normal lung sounds bilaterally. Absent: respiratory distress - Cardiovascular Cardiovascular exam: Present: regular rate - Abdominal Exam Abdominal exam: Present: soft, Non-Tender - Extremities Exam Extremities exam: Present: normal inspection. Absent: pedal edema - Back Exam Back exam: Present: normal inspection - Neurological Exam Neurological exam: Present: alert, oriented X3 - Expanded Neurological Exam Patient oriented to: Present: person, place, time Speech: Present: fluid speech Cranial nerves: EOM function (II, III, IV, ): Normal, facial sensation (V): Normal, facial palsy (VII): Abnormal Left, spinal accessory function (XI): Normal, tongue deviation (XII): Normal Cerebellar function: finger to nose: Normal Motor strength - LUE: 4/5 Motor strength - RUE: 5/5 Motor strength - LLE: 5/5 Motor strength - RLE: 5/5 Sensory exam upper extremity: light touch: Abnormal Left Coma Scale Eye Opening: Spontaneous Coma Scale Motor Response: Obeys Commands Coma Scale Verbal Response: Oriented Coma Scale Total: 15 - Skin Skin exam: Present: warm, dry, intact, normal color Course Course Narrative: Patient seen and examined. Patient appears to be in no acute distress. Patient was describing mild chest pain with radiation to her back. Patient states the pain comes and goes. Patient workup was initiated from triage. Patient's labs show a negative troponin with nonischemic EKG changes. Patient does have unilateral weakness and slurred speech with an age of 4. Patient is not a stroke were given last known well was unknown. - Reevaluation(s) Reevaluation #1: seen and examined. Now just realizing the patient was not eligible for a CTA of the head or neck given IV placement. Patient is going out for an MR for the hospitalist and is going to request an MRA of the head and neck. If the patient does have a large clot, it may be reasonable to talk with a tertiary care facility for IR intervention of clot removal. In the meantime the patient is admitted to the hospitalist service. Time: 18:55 Vital Signs Temperature 98.9 F 11/25/17 16:18 Pulse Rate 75 11/25/17 16:18 Respiratory Rate 16 11/25/17 16:18 Blood Pressure 100/58 11/25/17 16:18 O2 Sat by Pulse Oximetry 97 11/25/17 16:18 Temperature 98.9 F 11/25/17 16:18 Pulse Rate 85 11/25/17 18:40 Respiratory Rate 16 11/25/17 18:40 Blood Pressure 101/64 11/25/17 18:40 O2 Sat by Pulse Oximetry 96 11/25/17 18:40 Oxygen Delivery Oxygen Delivery Room Air Chest Pain - MDM Narrative Medical decision making narrative: 62-year-old female present for evaluation of neuro symptoms as well as chest pain. Patient's chest pain is less likely to be an aortic dissection as she appears in no acute distress. Patient had a negative troponin. Patient's chest x-ray shows no acute abnormalities. Patient's EKG also shows no acute abnormalities. Patient does have an atrial forgive and slurred speech and left facial droop as well as sensory deficits in left upper extremity weakness. Patient states that these findings are significantly worse than prior CVAs. Patient will be admitted to the hospital service for CVA versus TIA workup. Patient was given aspirin. This was not a stroke alert given was no clear known well time of onset. Stating that she went to bed around 23:30 last night. Presumably last known well. - Lab Data Lab results reviewed: Yes I reviewed the patient's lab results. Result diagrams: 11/25/17 16:28 11/25/17 16:28 Lab Results 11/25/17 11/25/17 11/25/17 Range/Units 16:28 16:28 16:28 WBC 8.7 (4.3-11.1) K/mcL RBC 5.50 H (3.82-4.97) M/mcL Hgb 16.0 H (11.5-15.4) g/dL Hct 47.8 H (35.3-44.9) % MCV 86.9 (83.0-100.0) fL MCH 29.1 (28.0-33.3) pg MCHC 33.5 (31.6-35.5) g/dL RDW 12.7 (11.5-14.5) % Plt Count 276 (140-400) K/mcL MPV 9.5 (9.4-12.4) fL Immature Gran % 0.5 (0-4) % Seg Neutrophils % 54.8 % Lymphocytes % 34.7 % Monocytes % 7.1 % Eosinophils % 2.2 % Basophils % 0.7 % Neutrophils # 4.8 (1.6-8.9) K/mcL Lymphocytes # 3.0 (0.6-4.6) K/mcL Monocytes # 0.6 (0.0-1.3) K/mcL Eosinophils # 0.2 (0.0-0.6) K/mcL Basophils # 0.1 (0.0-0.2) K/mcL Sodium 132 L (136-145) mEq/L Potassium 4.1 (3.5-5.1) mEq/L Chloride 97 L (98-107) mEq/L Carbon Dioxide 27 (23-29) mEq/L BUN 18 (8-23) mg/dL Creatinine 0.72 (0.60-1.20) mg/dL Est GFR ( Amer) > 60 (> 60) Est GFR (Non-Af Amer) > 60 (> 60) BUN/Creatinine Ratio 25 (6-26) Glucose 298 H (70-105) mg/dL POC Glucose (58-89) Calculated Osmolality 287 (280-300) Calcium 9.1 (8.6-10.3) mg/dL Troponin I < 0.03 (< 0.04) ng/mL 11/25/17 Range/Units 16:29 WBC (4.3-11.1) K/mcL RBC (3.82-4.97) M/mcL Hgb (11.5-15.4) g/dL Hct (35.3-44.9) % MCV (83.0-100.0) fL MCH (28.0-33.3) pg MCHC (31.6-35.5) g/dL RDW (11.5-14.5) % Plt Count (140-400) K/mcL MPV (9.4-12.4) fL Immature Gran % (0-4) % Seg Neutrophils % % Lymphocytes % % Monocytes % % Eosinophils % % Basophils % % Neutrophils # (1.6-8.9) K/mcL Lymphocytes # (0.6-4.6) K/mcL Monocytes # (0.0-1.3) K/mcL Eosinophils # (0.0-0.6) K/mcL Basophils # (0.0-0.2) K/mcL Sodium (136-145) mEq/L Potassium (3.5-5.1) mEq/L Chloride (98-107) mEq/L Carbon Dioxide (23-29) mEq/L BUN (8-23) mg/dL Creatinine (0.60-1.20) mg/dL Est GFR ( Amer) (> 60) Est GFR (Non-Af Amer) (> 60) BUN/Creatinine Ratio (6-26) Glucose (70-105) mg/dL POC Glucose 269 H (58-89) Calculated Osmolality (280-300) Calcium (8.6-10.3) mg/dL Troponin I (< 0.04) ng/mL - Radiology Data Radiology results reviewed: Yes I reviewed the patient's radiology results. - EKG Data EKG attestation: Yes I reviewed and interpreted this EKG. EKG shows normal: sinus rhythm Rate: normal Rhythm: NSR Elliott/QRS: normal T wave inversions noted in: aVL, aVR Interpretation: unchanged when compared to prior tracing (date) S.B.Armando - Milagro Situation: Demographics Background: Presenting Complaint Assessment: Vital Signs, Course and respsone to treatment, Patient/Family Expectation Recommendation: Barrier(s) to disposition, Recommendation based on pending studies, treatments, or consults S.BJack Report Given to: Dr. Frank Humphrey Repor Time: 17:23 Attestation Statement - Attestation Attestation: I examined this patient and my medical decision-making was reviewed with the Resident Physician. I agree with the documented findings, disposition and treatment plan as described except to the extent set forth below. Patient awoke with stroke symptoms this morning. Went to bed at 2330 last night. Obviously outside the window for IV TPA, however, the results of the GABBY trial suggested the possibility of benefit for endovascular therapy in the 6-24 hour window. While she does fall within this window, I suspicion that she has a proximal amenable to intervention is very low, considering her mild deficits. CTA of the head and neck and been ordered, results pending. I spoke with the refinery technician, with a CTA of the neck is ordered a track the carotids are without the carotid arch. I do not suspect dissection, but given she has stroke symptoms along with some chest discomfort, ruling out would be beneficial. Hospitalist has been notified and accepted the patient for admission, if his CTA shows infection, [facility] or [facility] to be contacted to consult with interventionalist. NIH Stroke Scale - Level of Consciousness LOC: Alert - LOC Questions LOC Questions: Answers both correctly - LOC Commands LOC Commands: Performs both correctly - Best Gaze Best Gaze: Normal - Visual Visual: No visual loss - Facial Palsy Facial Palsy: Minor asymmetry on smiling, flattened nasolabial fold - Motor Arms Motor Arm-Left: Drift, does NOT hit bed Motor Arm-Right: No drift for 10 seconds - Motor Legs Motor Leg-Left: No drift for 5 seconds Motor Leg-Right: No drift for 5 seconds - Limb Ataxia Limb Ataxia: Absent of affected limb too weak to perform exam - Sensory Sensory: Mild to moderate loss, "not as sharp" - Best Language Best Language: No aphasia - Dysarthria Dysarthria: Mild, slurs some words - Extinction and Inattention Extinction and Inattention: Normal - NIHSS Total Score NIHSS Total Score: 4
[2017-11-25 17:00] LABS: Calcium 9.1 mg/dL (8.6-10.3); Carbon Dioxide 27 mEq/L (23-29); Chloride 97 mEq/L (98-107); Potassium 4.1 mEq/L (3.5-5.1); Sodium 132 mEq/L (136-145)
[2017-11-25 17:06] LABS: BUN/Creatinine Ratio 25 (6-26); Blood Urea Nitrogen 18 mg/dL (8-23); Glucose 298 mg/dL (70-105); Osmolality,Calculated 287 (280-300); eGFR For African Americans > 60 (> 60); eGFR For Non-African Americans > 60 (> 60)
[2017-11-25] MEDS ORDERED: Aspirin 81 MG TAB.CHEW PO ONE (17:14)
[2017-11-25] MEDS ORDERED: Acetaminophen 325 MG TABLET PO PRN (17:48)
[2017-11-25] MEDS ORDERED: Naloxone 0.4 MG/ML INJ IVP PRN (17:48)
[2017-11-25] MEDS ORDERED: *HR* Morphine 2 MG/ML SYRINGE IVP PRN (17:48)
[2017-11-25] MEDS ORDERED: ALPRAZolam 1 MG TABLET PO PRN (17:51)
[2017-11-25] MEDS ORDERED: *HR* Dextrose 50 % in Water (Syg) 50 ML SYRINGE IVP PRN (17:52)
[2017-11-25] MEDS ORDERED: D5% in Water 1,000 ML IVC PRN (17:52)
[2017-11-25] MEDS ORDERED: Dextrose Gel 15 GM/37.5 ML TUBE PO PRN ×2 (17:52)
--- NOTE | 2017-11-25 17:56 | Internal Med History&Physical ---
Date of Encounter: 11/25/17 Time of Encounter: 17:54 Assessment and Plan (1) CVA (cerebral vascular accident) Current visit: Yes Status: Acute More pronounced left-sided weakness and slurred speech Order an MRI of the brain. They are ordered a CT angiogram of the head and neck , results are pending Limited echocardiogram, neuro checks, aspirin, Plavix, statin and check lipid panel Medical candidate for TPA as the symptoms started in the morning Neurology consult Omeprazole for GI prophylaxis and subcutaneous heparin for DVT prophylaxis. The patient will be admitted for observation. DNR CC arrest DNI. Time spent on this admission 40 minutes. High risk for falling Qualifiers: CVA mechanism: unspecified Qualified Code(s): I63.9 - Cerebral infarction, unspecified (2) Diabetes mellitus type 2 in obese Current visit: No Status: Acute Insulin sliding scale as the patient is going to be nothing by mouth (3) Hyponatremia Current visit: No Status: Acute Monitor sodium Continue IV fluids (4) Left-sided weakness Current visit: No Status: Acute (5) COPD (chronic obstructive pulmonary disease) Current visit: No Status: Chronic No exacerbation, continue oxygen therapy Qualifiers: COPD type: unspecified COPD Qualified Code(s): J44.9 - Chronic obstructive pulmonary disease, unspecified Internal Medicine - H&P: HPI Chief complaint: Left-sided weakness and slurred speech Admitted From: Emergency Dept History of present illness: Ms. Garay is a 62 year old female with a prior medical history of CVA with left- sided weakness, Abiola's type 2 insulin-dependent, hypertension, hyperlipidemia , continue emergency room complaining of slurred speech and worsening left- sided upper extremity and lower extremity. CT scan of the head did not show any acute findings, chest x-ray did not show any acute cardiopulmonary disease. Hemoglobin is increased at 16 and hematocrit 47.8 sodium is 132 glucose 298. The patient has experienced intermittent chest pain but denies any chest pain at the moment. Blood pressure was 98/67. The symptoms started in the public health assistant and have improved slightly but not completely. She denies any other complaint Past Med Surg Social Fam HX - Past Medical History Medical history: arthritis, CHF (Diastolic), COPD (Oxygen dependent), CVA (With residual left-sided weakness), diabetes (Insulin-dependent), hyperlipidemia, hypertension, TIA, other (Depression, chronic hyponatremia) Psychiatric history: anxiety, depression - Past Surgical History Surgical History: hip replacement, orthopedic, other (Right knee arthroscopy,), other (Last echocardiogram from July 2017 shows an ejection fraction of 65% ) - Social History Smoking Status: Former smoker Smokeless Tobacco Status: No Alcohol use: none Drug use: none - Family History Mother Living Status: Still Living Hx Family Cardiac Disorders: Yes Hx Family Endocrine Disorder: Yes (DM) Father Living Status: Hx Family Cardiac Disorders: Yes (murmur) Hx Family Respiratory Disorders: Yes Hx Family Cancer: Yes (lung) Hx Family GI Disorders: No Hx Family Endocrine Disorder: Yes Hx Family Neuromuscular Disorders: No Hx Family Neurologic Disorders: No Hx Family HEENT Disorders: No Hx Family Autoimmune Disorders: No - Additional Family History Additional family history: Mother with diabetes Internal Medicine - H&P: Meds Furosemide [Lasix] 20 mg PO QAM 11/15/15 [History] Insulin ASPART [Novolog] 0 unit SQ TIDAC 11/15/15 [History] metFORMIN [Glucophage] 1,000 mg PO BID 11/15/15 [History] Albuterol Sulfate [Albuterol Inhaler] 2 puff IH Q4-6H PRN 09/01/16 [History] Aspirin [Ecotrin] 325 mg PO DAILY 10/20/16 [History] Lisinopril [Zestril] 40 mg PO QAM 11/04/16 [History] Budesonide/Formoterol 80/4.5 [Symbicort 80/4.5] 2 puff IH BID 02/25/17 [History ] DULoxetine [Cymbalta] 60 mg PO DAILY 02/25/17 [History] Atorvastatin [Lipitor] 40 mg PO HS 04/28/17 [History] Clopidogrel [Plavix] 75 mg PO DAILY 04/28/17 [History] Insulin Glargine [Lantus] 50 unit SQ QAM 04/28/17 [History] Oxygen 3 l NS HS 04/28/17 [History] Insulin Glargine [Lantus] 54 unit SQ HS 09/03/17 [History] ALPRAZolam [Xanax 1 MG Tablet] 1 mg PO TID PRN 11/25/17 [History] Albuterol Neb [Proventil Neb] 2.5 mg IH Q6H PRN 11/25/17 [History] Gabapentin [Neurontin] 800 mg PO TID 11/25/17 [History] 3 Allergy/AdvReac Type Severity Reaction Status Date / Time fluoxetine [From Prozac] AdvReac ams Verified 10/13/17 13:00 naproxen [From Naprosyn] AdvReac Gastrointestinal Verified 10/13/17 13:00 Upset pioglitazone [From Actos] AdvReac Gastrointestinal Verified 10/13/17 13:00 Upset All Systems PM: A 10-system review of systems was performed and is negative for pertinent findings except as documented above in the HPI. Review of systems: Slurred speech, other systems out of the 10 reviewed were negative - Constitutional Vitals: Temp Pulse Resp BP Pulse Ox 98.9 F 68 18 98/67 99 11/25/17 16:18 11/25/17 17:13 11/25/17 17:13 11/25/17 17:13 11/25/17 17:19 General appearance: Present: A&O X 3 (Left facial droop), morbidly obese - Head Head exam: Present: atraumatic, normocephalic - Eye Eye exam: Present: PERRL, conjuntiva pink, sclera anicteric Pupils: Present: PERRL - Neck Neck exam general surgery: Present: supple, trachea midline. Absent: lymphadenopathy - Respiratory Respiratory exam: Present: decreased breath sounds, CTAB. Absent: accessory muscle use, rales, rhonchi, wheezes - Cardiovascular Cardiovascular exam: Present: RRR, +S1, +S2. Absent: diastolic murmur, gallop, rubs, systolic murmur - GI/Abdominal GI/Abdominal exam: Present: normal bowel sounds, soft, no peritoneal signs. Absent: distended, tenderness - Extremities Exam Extremities exam: Present: warm, radial pulses palpable and symmetrical. Absent : calf tenderness, cyanotic, pedal edema - Neurological Exam Neurological exam: Present: CN II-XII intact, oriented X3, no focal deficits. Absent: pronater drift, facial droop, speech deficit - Skin Skin exam: Present: dry, intact Additional comments: Minimal left sided weakness 4 out of 5 in the arm and minimal weakness in the leg Internal Med - H&P Results - Labs CBC & Chem 7: 11/25/17 16:28 11/25/17 16:28 Labs: Short CBC 11/25/17 Range/Units 16:28 WBC 8.7 (4.3-11.1) K/mcL Hgb 16.0 H (11.5-15.4) g/dL Hct 47.8 H (35.3-44.9) % Plt Count 276 (140-400) K/mcL Neutrophils # 4.8 (1.6-8.9) K/mcL BMP 11/25/17 16:28 Sodium 132 L Potassium 4.1 Chloride 97 L Carbon Dioxide 27 BUN 18 Creatinine 0.72 Glucose 298 H Calcium 9.1 Cardiac Enzymes 11/25/17 Range/Units 16:28 Troponin I < 0.03 (< 0.04) ng/mL - Impressions ITS Impressions Chest X-Ray 11/25/17 16:19 IMPRESSION: No acute cardiopulmonary disease. D/ / Kennedy Soliz MD / Kennedy Soliz MD Interpreting Provider: Kennedy Soliz MD Head CT 11/25/17 16:19 IMPRESSION: No acute intracranial abnormality. D/ / Rivka Cerda MD / Rivka Cerda MD Interpreting Provider: Rivka Cerda MD
[2017-11-25] MEDS ORDERED: Ipratropium/Albuterol Neb 3 ML IH PRN (18:00)
[2017-11-25] MEDS ORDERED: 0.9 % Sodium Chloride 1,000 ML IVC SCH (18:00)
[2017-11-25] MEDS: *HR* Heparin 5,000 UNIT/ML VIAL SQ SCH (20:30)
[2017-11-25] MEDS: Insulin LISPRO 300 UNITS/3 ML VIAL SQ SCH (20:32)
[2017-11-25] MEDS ORDERED: Gabapentin 400 MG CAPSULE PO SCH (21:00)
[2017-11-26] MEDS: Insulin LISPRO 300 UNITS/3 ML VIAL SQ SCH ×2 (00:37→06:11)
[2017-11-26 05:10] LABS: Basophils % 0.4 %; Eosinophils # 0.2 K/mcL (0.0-0.6); Eosinophils % 2.8 %; Hematocrit 43.2 % (35.3-44.9); Hemoglobin 14.4 g/dL (11.5-15.4); Immature Granulocytes % 0.5 % (0-4); Lymphocytes # 2.7 K/mcL (0.6-4.6); Lymphocytes % 35.9 %; Mean Corpuscular HGB Conc 33.3 g/dL (31.6-35.5); Mean Corpuscular Volume 86.9 fL (83.0-100.0); Mean Platelet Volume 9.8 fL (9.4-12.4); Monocytes # 0.6 K/mcL (0.0-1.3); Neutrophils # 3.9 K/mcL (1.6-8.9); Platelet Count 235 K/mcL (140-400); Red Blood Count 4.97 M/mcL (3.82-4.97); Red Cell Distribution Width 12.7 % (11.5-14.5); Segmented Neutrophils % 52.4 %
[2017-11-26] MEDS: *HR* Heparin 5,000 UNIT/ML VIAL SQ SCH (05:33)
[2017-11-26 05:53] LABS: BUN/Creatinine Ratio 32 (6-26); Blood Urea Nitrogen 23 mg/dL (8-23); Calcium 8.5 mg/dL (8.6-10.3); Carbon Dioxide 25 mEq/L (23-29); Chloride 97 mEq/L (98-107); Chol/HDL Ratio 8.6 (0-4.9); Cholesterol 283 mg/dL (< 200); Glucose 242 mg/dL (70-105); HDL Cholesterol 33 mg/dL (40-59); LDL Cholesterol,Calculated 188 mg/dL (0-99); Osmolality,Calculated 286 (280-300); Potassium 3.5 mEq/L (3.5-5.1); Sodium 132 mEq/L (136-145); Triglycerides 311 mg/dL (< 150); eGFR For African Americans > 60 (> 60); eGFR For Non-African Americans > 60 (> 60)
[2017-11-26 07:07] VITALS: BP 96/55
[2017-11-26] MEDS ORDERED: Lisinopril 20 MG TABLET PO SCH (09:00)
[2017-11-26] MEDS ORDERED: Aspirin Enteric Coated 325 MG Tablet PO SCH (09:00)
--- NOTE | 2017-11-26 11:11 | Neurology - Consult Note ---
Date of Encounter: 11/26/17 Time of Encounter: 11:08 Assessment and Plan (1) TIA (transient ischemic attack) Current Visit: No Status: Acute Patient's intermittent numbness and tingling may be related to TIA versus somatization of her anxiety. MRI of the brain is unremarkable for acute infarct however the patient is at extremely high risk for infarct given the MR a head/neck findings of right mild and severe left vertebral artery origin stenosis and severe right and mild left supraclinoid internal carotid artery stenosis. It was strongly recommended the patient that she pursue evaluation at [facility] for her neurovascular disease. Patient is declining transfer at this time. I discussed with the patient at length her high risk of neurovascular event given her imaging findings and she refuses transfer for urgent evaluation however she did request information on who to follow up with. We recommend aggressive risk factor modification by continuing aspirin, plavix, and statin Qualifiers: Transient cerebral ischemia type: other Qualified Code(s): G45.8 - Other transient cerebral ischemic attacks and related syndromes (2) Carotid stenosis Current Visit: Yes Status: Acute Qualifiers: Laterality: bilateral Qualified Code(s): I65.23 - Occlusion and stenosis of bilateral carotid arteries (3) Vertebral artery stenosis Current Visit: Yes Status: Acute Qualifiers: Laterality: unspecified laterality Qualified Code(s): I65.09 - Occlusion and stenosis of unspecified vertebral artery History of Present Illness Chief complaint: Numbness/tingling HPI: Ms. Garay is a 62 year old female with history of diabetes, anxiety, CVA 20 years ago presents with left arm and left face numbness. Patient states that she has these symptoms relatively frequently and are always associated when she becomes anxious or extremely stressed out. They began yesterday after she was [place] She states they lasted for about a day and then resolved spontaneously. She reports occasional headaches but they are not always associated with numbness and tingling she states she also feels weak in the left arm during these events. Past Med Surg Social Fam HX - Past Medical History Medical history: arthritis, CHF, COPD, CVA, diabetes, hyperlipidemia, hypertension, TIA, other Psychiatric history: anxiety, depression - Past Surgical History Surgical History: hip replacement, orthopedic, other - Social History Smoking Status: Former smoker Smokeless Tobacco Status: No Alcohol use: none Drug use: none - Family History Mother Living Status: Still Living Hx Family Cardiac Disorders: Yes Hx Family Endocrine Disorder: Yes (DM) Father Living Status: Hx Family Cardiac Disorders: Yes (murmur) Hx Family Respiratory Disorders: Yes Hx Family Cancer: Yes (lung) Hx Family GI Disorders: No Hx Family Endocrine Disorder: Yes Hx Family Neuromuscular Disorders: No Hx Family Neurologic Disorders: No Hx Family HEENT Disorders: No Hx Family Autoimmune Disorders: No Medications and Allergies Furosemide [Lasix] 20 mg PO QAM 11/15/15 [History] Insulin ASPART [Novolog] 0 unit SQ TIDAC 11/15/15 [History] metFORMIN [Glucophage] 1,000 mg PO BID 11/15/15 [History] Albuterol Sulfate [Albuterol Inhaler] 2 puff IH Q4-6H PRN 09/01/16 [History] Aspirin [Ecotrin] 325 mg PO DAILY 10/20/16 [History] Lisinopril [Zestril] 40 mg PO QAM 11/04/16 [History] Budesonide/Formoterol 80/4.5 [Symbicort 80/4.5] 2 puff IH BID 02/25/17 [History ] DULoxetine [Cymbalta] 60 mg PO DAILY 02/25/17 [History] Atorvastatin [Lipitor] 40 mg PO HS 04/28/17 [History] Clopidogrel [Plavix] 75 mg PO DAILY 04/28/17 [History] Insulin Glargine [Lantus] 50 unit SQ QAM 04/28/17 [History] Oxygen 3 l NS HS 04/28/17 [History] Insulin Glargine [Lantus] 54 unit SQ HS 09/03/17 [History] ALPRAZolam [Xanax 1 MG Tablet] 1 mg PO TID PRN 11/25/17 [History] Albuterol Neb [Proventil Neb] 2.5 mg IH Q6H PRN 11/25/17 [History] Gabapentin [Neurontin] 800 mg PO TID 11/25/17 [History] 3 Allergy/AdvReac Type Severity Reaction Status Date / Time fluoxetine [From Prozac] AdvReac ams Verified 10/13/17 13:00 naproxen [From Naprosyn] AdvReac Gastrointestinal Verified 10/13/17 13:00 Upset pioglitazone [From Actos] AdvReac Gastrointestinal Verified 10/13/17 13:00 Upset All Systems: A 10-system review of systems was performed and is negative for pertinent findings except as documented above in the HPI. Physical Examination - Vital Signs Vital Signs: Initial Vital Signs Temp Pulse Resp BP Pulse Ox 98.9 F 75 16 100/58 97 11/25/17 16:18 11/25/17 16:18 11/25/17 16:18 11/25/17 16:18 11/25/17 16:18 - Constitutional General appearance: comfortable - Neurologic Sensorimotor examination: intact Motor examination - right side: 5/5: deltoids, biceps, triceps, wrist flexion, wrist extension, radiation control specialist, hip flexors, tibialis Anterior, quadriceps, toe extension (EHL), plantarflexion Motor examination - left side: 4/5: deltoids, biceps, triceps, 5/5: wrist flexion, wrist extension, hip flexors, radiation control specialist, quadriceps, tibialis Anterior, toe extension (EHL), plantarflexion Detailed sensory examination: other (Decreased light touch sensation to the left side of the face) Reflex and gait examination: intact Reflexes: Biceps: 2+, Brachioradialis: 2+, Patella: 2+, Achilles: 2+ Mental Status Examination: awake, alert, oriented to person, oriented to place, oriented to time, follows commands appropriately, answers questions appropriately, no agnosia, no aphasia, no aproxia Cranial nerve examination: PERRL, EOMI, visual bowman intact, sensory to face intact (Diminished on left), mastication intact, no dysarthria, flexes SCM and trapezius muscles symmetrically with full power, tongue protrudes midline, no atrophy or facial fasiculations present Cranial Nerve Exam: ptosis: Left, flattening of masolabic/folds: Left Cerebellar examination: no dysmetria, performs finger to nose and heel to guajardo symmetrically without ataxia Results - Laboratory Findings CBC and BMP: 11/26/17 03:40 11/26/17 03:40 Abnormal lab findings: Abnormal lab results Sodium 132 mEq/L (136-145) L 11/26/17 03:40 Chloride 97 mEq/L (98-107) L 11/26/17 03:40 BUN/Creatinine Ratio 32 (6-26) H 11/26/17 03:40 Glucose 242 mg/dL (70-105) H 11/26/17 03:40 POC Glucose 269 (58-89) H 11/25/17 16:29 Calcium 8.5 mg/dL (8.6-10.3) L 11/26/17 03:40 Triglycerides 311 mg/dL (< 150) H 11/26/17 03:40 Cholesterol 283 mg/dL (< 200) H 11/26/17 03:40 LDL Cholesterol, Calc 188 mg/dL (0-99) H 11/26/17 03:40 VLDL Cholesterol, Calc 62 mg/dL (< 31) H 11/26/17 03:40 HDL Cholesterol 33 mg/dL (40-59) L 11/26/17 03:40 Cholesterol/HDL Ratio 8.6 (0-4.9) H 11/26/17 03:40 Consult Discharge Plan - Plan Additional Instructions: Please follow up with your PCP to obtain authorization and up and referral to [facility] neurovascular surgery service [facility] Referrals: Carolina Crowell MD [Primary Care Provider] - 12/09/17 4:00 pm
--- NOTE | 2017-11-26 11:40 | Discharge Summary ---
Date of Encounter: 11/26/17 Time of Encounter: 11:35 - Discharge Diagnosis (1) TIA (transient ischemic attack) Priority: Primary Status: Acute Comments: 62 year old female with a prior medical history of CVA with left-sided weakness , type 2 insulin-dependent, hypertension, hyperlipidemia who presented to the emergency room complaining of slurred speech and worsening left-sided upper extremity and lower extremity weakness. CT scan of the head did not show any acute findings, chest x-ray did not show any acute cardiopulmonary disease. The symptoms have improved back to her baseline. Bedside swallow was completed and she is tolerating her diet. She denies any other complaint. According to Dr Alonzo the patient's intermittent numbness and tingling may be related to TIA versus somatization of her anxiety. MRI of the brain was unremarkable for acute infarct, however the patient is at extremely high risk for infarct given the MRA head/neck findings of right mild and severe left vertebral artery origin stenosis and severe right and mild left supraclinoid internal carotid artery stenosis. He recommended continuing antiplatelet therapy. Dr Alonzo strongly recommended to the patient that she pursue evaluation at [facility] for her neurovascular disease. Patient declined at this time. He discussed with the patient at length her high risk of neurovascular event given her imaging findings and she refused transfer for urgent evaluation. I also explained the importance of seeking treatment while she was stable. She stated her uncle years ago of a similar procedure. Discussed that treatments in general have improved. Strongly encouraged her to accept transfer to [facility], she decliined. I asked her to discuss with her family. She did talk to her daughter, she stated she wants to go home, she is not interested in seeking treatment at this time. I explained once again that she is at high risk for stroke with complications including her . She stated"I' m ready to go". She is still refusing to go. however she did request information on who to follow up with. We will provide her with information on who to follow up with her and she was strongly encouraged to follow-up as soon as possible. Qualifiers: Transient cerebral ischemia type: other Qualified Code(s): G45.8 - Other transient cerebral ischemic attacks and related syndromes (2) Vertebral artery stenosis Priority: Primary Status: Acute Comments: please see above plan and note Qualifiers: Laterality: unspecified laterality Qualified Code(s): I65.09 - Occlusion and stenosis of unspecified vertebral artery (3) Diabetes mellitus type 2 in obese Priority: Secondary Status: Chronic Comments: Siding scale insulin while in hospitial, stable glucose Resume home regime on discharge (4) COPD (chronic obstructive pulmonary disease) Priority: Secondary Status: Chronic Comments: nonexacerbated Qualifiers: COPD type: unspecified COPD Qualified Code(s): J44.9 - Chronic obstructive pulmonary disease, unspecified - Discharge Medications Home Medications: Furosemide [Lasix] 20 mg PO QAM 11/15/15 [History] Insulin ASPART [Novolog] 0 unit SQ TIDAC 11/15/15 [History] metFORMIN [Glucophage] 1,000 mg PO BID 11/15/15 [History] Albuterol Sulfate [Albuterol Inhaler] 2 puff IH Q4-6H PRN 09/01/16 [History] Aspirin [Ecotrin] 325 mg PO DAILY 10/20/16 [History] Lisinopril [Zestril] 40 mg PO QAM 11/04/16 [History] Budesonide/Formoterol 80/4.5 [Symbicort 80/4.5] 2 puff IH BID 02/25/17 [History ] DULoxetine [Cymbalta] 60 mg PO DAILY 02/25/17 [History] Atorvastatin [Lipitor] 40 mg PO HS 04/28/17 [History] Clopidogrel [Plavix] 75 mg PO DAILY 04/28/17 [History] Insulin Glargine [Lantus] 50 unit SQ QAM 04/28/17 [History] Oxygen 3 l NS HS 04/28/17 [History] Insulin Glargine [Lantus] 54 unit SQ HS 09/03/17 [History] ALPRAZolam [Xanax 1 MG Tablet] 1 mg PO TID PRN 11/25/17 [History] Albuterol Neb [Proventil Neb] 2.5 mg IH Q6H PRN 11/25/17 [History] Gabapentin [Neurontin] 800 mg PO TID 11/25/17 [History] Allergies/Adverse Reactions: 3 Allergy/AdvReac Type Severity Reaction Status Date / Time fluoxetine [From Prozac] AdvReac ams Verified 10/13/17 13:00 naproxen [From Naprosyn] AdvReac Gastrointestinal Verified 10/13/17 13:00 Upset pioglitazone [From Actos] AdvReac Gastrointestinal Verified 10/13/17 13:00 Upset Date of admission: 11/25/17 18:52 Primary care physician: Carolina Crowell Discharging clinician: Luisa Mejía Anticipated date of discharge: 11/26/17 - Patient Status Disposition: Home, Self-Care Condition: Fair Functional capacity at discharge: independent ambulation Overall status at discharge: patient is back to baseline - Discharge Instructions Follow Up With: Carolina Crowell MD [Primary Care Provider] - 12/09/17 4:00 pm Additional Instructions: Please follow up with your PCP to obtain authorization and up and referral to [facility] neurovascular surgery service [facility] - Diet and Activity Activity: resume usual activities as tolerated Diet: regular diet Interval History: Patient states she is back to the baseline, she denies any chest pain, shortness of breath, abdominal discomfort, fever, chills, headache, neuro symptoms or bladder problems. He is tolerating her diet. She wants to go home , she refused transfer to [facility] as recommended by the neurologist and myself. She discussed with her daughter and she prefers to go home. Long conversation regarding possible complications were not seeking treatment. She verbalized understanding and has no questions at this time. Once again I asked her to verbalize that she understood that she needed to follow up at [facility], she said she did but she is declining. She thanked me for talking to her about it. Hospital course: Please see the assessment and plan for detailed information - Time Spent with Patient Total time spent providing and/or coordinating discharge services: - Constitutional Vitals: Temp Pulse Resp BP Pulse Ox 98.4 F 59 15 96/55 95 11/26/17 07:06 11/26/17 07:06 11/26/17 07:06 11/26/17 07:06 11/26/17 07:06 General appearance: Present: cooperative, A&O X 3 (Left facial droop), morbidly obese, pleasant, no acute distress, answers questions appropriately - Head Head exam: Present: atraumatic, normocephalic - Eye Eye exam: Present: conjuntiva pink, sclera anicteric - Neck Neck exam general surgery: Present: full ROM, supple, trachea midline. Absent: lymphadenopathy, tenderness - Respiratory Respiratory exam: Present: CTAB. Absent: accessory muscle use, rales, rhonchi, wheezes - Cardiovascular Cardiovascular exam: Present: RRR, +S1, +S2. Absent: diastolic murmur, gallop, rubs, systolic murmur - GI/Abdominal GI/Abdominal exam: Present: normal bowel sounds, soft, no peritoneal signs. Absent: distended, tenderness - Extremities Exam Extremities exam: Present: warm, radial pulses palpable and symmetrical. Absent : calf tenderness, cyanotic, pedal edema - Neurological Exam Neurological exam: Present: alert, oriented X3, no focal deficits, facial droop. Absent: strengths equal and symetr throughout, pronater drift, speech deficit Additional comments: Left upper arm slightly weaker than the right, decreased touch sensation to left side of her face compared to the right, reflexes intact at 2+ - Skin Skin exam: Present: dry, intact
--- NOTE | 2017-11-26 16:26 | Electrocardiograph Report ---
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
== END 2017-11-26 15:55 | disposition home or self-care (01) ==
LOC: 3BNU 16:16 → EMEROO 16:16 → 3BNU 19:10
PROVIDERS: ADMIT Internal Medicine; ATTEND Registered Nurse

== ENCOUNTER 2019-11-07 17:58 | Observation (INO) ==
[2019-11-07] MEDS ORDERED: 0.9 % Sodium Chloride 1,000 ML IVC ONE (18:07)
[2019-11-07 18:45] LABS: Basophils % 0.5 %; Eosinophils # 0.1 K/mcL (0.0-0.6); Eosinophils % 1.6 %; Hematocrit 44.3 % (35.3-44.9); Hemoglobin 15.1 g/dL (11.5-15.4); Immature Granulocytes % 0.4 % (0-4); Lymphocytes # 1.7 K/mcL (0.6-4.6); Mean Corpuscular HGB Conc 34.1 g/dL (31.6-35.5); Mean Corpuscular Hemoglobin 30.6 pg (28.0-33.3); Mean Corpuscular Volume 89.9 fL (83.0-100.0); Monocytes # 0.7 K/mcL (0.0-1.3); Neutrophils # 5.6 K/mcL (1.6-8.9); Platelet Count 217 K/mcL (140-400); Red Blood Count 4.93 M/mcL (3.82-4.97); Red Cell Distribution Width 12.6 % (11.5-14.5); Segmented Neutrophils % 68.5 %; White Blood Count 8.2 K/mcL (4.3-11.1)
[2019-11-07 18:49] LABS: Bilirubin,Urine Negative (Negative); Blood,Urine Negative (Negative); Clarity,Urine Clear (Clear); Color,Urine Yellow (Yellow); Glucose,Urine (UA) >=1000 mg/dL (Normal); Ketones,Urine Negative (Negative); Leukocyte Esterase,Urine Negative (Negative); Nitrite,Urine Negative (Negative); PH,Urine 6.5 pH Units (5.0-8.0); Protein,Urine Negative (Neg-Trace); Specific Gravity,Urine > 1.030 (1.010-1.025); Urobilinogen,Urine Normal (Normal)
[2019-11-07 19:03] LABS: Alanine Aminotransferase 8 Units/L (7-52); Albumin/Globulin Ratio 1.5 (1.1-2.2); Alkaline Phosphatase 111 Units/L (34-104); Aspartate Amino Transferase 13 Units/L (13-39); BUN/Creatinine Ratio 15 (6-26); Bilirubin,Direct 0.1 mg/dL (0.0-0.2); Bilirubin,Indirect 0.5 mg/dL (0.0-1.0); Bilirubin,Total 0.6 mg/dL (0.3-1.0); Blood Urea Nitrogen 18 mg/dL (8-23); Calcium 8.9 mg/dL (8.6-10.3); Carbon Dioxide 24 mEq/L (23-29); Chloride 95 mEq/L (98-107); Globulin 2.6 g/dL (2.4-3.5); Glucose 510 mg/dL (70-105); Lipase 46 Units/L (11-82); Osmolality,Calculated 299 (280-300); Potassium 4.3 mEq/L (3.5-5.1); Sodium 132 mEq/L (136-145); Total Protein 6.6 g/dL (6.4-8.9); Troponin I < 0.03 ng/mL (< 0.04); eGFR For African Americans 55 (> 60); eGFR For Non-African Americans 46 (> 60)
[2019-11-07] MEDS ORDERED: Insulin Human Regular 10 UNIT in 0.9 % Sodium Chloride 10 ML IV ONE (19:19)
[2019-11-07] MEDS ORDERED: *HR* Dextrose 50 % in Water (Syg) 50 ML SYRINGE IVP PRN (21:47)
[2019-11-07] MEDS ORDERED: Dextrose Gel 15 GM/37.5 ML TUBE PO PRN ×2 (21:47)
[2019-11-07] MEDS ORDERED: D5% in Water 1,000 ML IVC PRN (21:47)
[2019-11-07] MEDS: Insulin LISPRO 300 UNITS/3 ML VIAL SQ SCH (22:21)
[2019-11-07] MEDS: Insulin DETEMIR 100 UNIT/ML X5UNITS SQ SCH (23:23)
[2019-11-08] MEDS: Insulin LISPRO 300 UNITS/3 ML VIAL SQ SCH ×9 (00:06→20:32)
[2019-11-08 06:19] LABS: Prothrombin Time 11.1 Seconds (9.4-12.1)
[2019-11-08] MEDS ORDERED: 0.9 % Sodium Chloride 1,000 ML IVC SCH (06:30)
[2019-11-08 06:35] LABS: Alanine Aminotransferase 8 Units/L (7-52); Albumin 3.5 g/dL (3.5-5.7); Albumin/Globulin Ratio 1.5 (1.1-2.2); Alkaline Phosphatase 89 Units/L (34-104); Aspartate Amino Transferase 11 Units/L (13-39); BUN/Creatinine Ratio 22 (6-26); Bilirubin,Total 0.4 mg/dL (0.3-1.0); Blood Urea Nitrogen 16 mg/dL (8-23); Calcium 8.3 mg/dL (8.6-10.3); Carbon Dioxide 29 mEq/L (23-29); Chloride 101 mEq/L (98-107); Cholesterol 160 mg/dL (< 200); Globulin 2.3 g/dL (2.4-3.5); Glucose 174 mg/dL (70-105); HDL Cholesterol 32 mg/dL (40-59); LDL Cholesterol,Calculated 102 mg/dL (0-99); Osmolality,Calculated 293 (280-300); Potassium 3.6 mEq/L (3.5-5.1); Sodium 139 mEq/L (136-145); Total Protein 5.8 g/dL (6.4-8.9); Triglycerides 129 mg/dL (< 150); Troponin I < 0.03 ng/mL (< 0.04); eGFR For African Americans > 60 (> 60); eGFR For Non-African Americans > 60 (> 60)
[2019-11-08 07:53] LABS: Estimated Average Glucose 321 mg/dl
[2019-11-08] MEDS ORDERED: *HR* LORazepam 2 MG/ML VIAL IVP ONE (09:49)
[2019-11-08] MEDS ORDERED: *HR* LORazepam 2 MG/ML VIAL ONE (09:52)
[2019-11-08] MEDS ORDERED: Aspirin 81 MG TAB.CHEW PO SCH (10:45)
[2019-11-08] MEDS: Gabapentin 400 MG CAPSULE PO SCH ×2 (18:01→20:31)
[2019-11-08] MEDS: *HR* Heparin 5,000 UNIT/ML VIAL SQ SCH (18:01)
[2019-11-08] MEDS ORDERED: Perflutren Lipid Microsphere 1.3 ML in 0.9 % Sodium Chloride 8.7 ML IVP ONE (18:35)
[2019-11-08] MEDS: Insulin DETEMIR 100 UNIT/ML X5UNITS SQ SCH (20:32)
[2019-11-09] MEDS ORDERED: Acetaminophen 325 MG TABLET PO ONE (02:33)
[2019-11-09] MEDS: *HR* Heparin 5,000 UNIT/ML VIAL SQ SCH (05:03)
[2019-11-09 07:14] VITALS: BP 123/76
[2019-11-09 07:20] LABS: BUN/Creatinine Ratio 18 (6-26); Blood Urea Nitrogen 13 mg/dL (8-23); Calcium 9.5 mg/dL (8.6-10.3); Carbon Dioxide 28 mEq/L (23-29); Chloride 99 mEq/L (98-107); Glucose 303 mg/dL (70-105); Osmolality,Calculated 297 (280-300); Potassium 4.7 mEq/L (3.5-5.1); Sodium 138 mEq/L (136-145); eGFR For African Americans > 60 (> 60); eGFR For Non-African Americans > 60 (> 60)
[2019-11-09] MEDS ORDERED: Lisinopril 20 MG TABLET PO SCH (09:00)
[2019-11-09] MEDS ORDERED: lamoTRIgine 100 MG TABLET PO SCH (09:00)
[2019-11-09] MEDS ORDERED: Furosemide 20 MG TABLET PO SCH (09:00)
[2019-11-09] MEDS: Insulin LISPRO 300 UNITS/3 ML VIAL SQ SCH (10:28)
== END 2019-11-09 16:12 | disposition home health service (06) ==
LOC: 3BNU 17:58 → EMEROOARM 17:58 → SUATTDRO 20:52 → 3BNU 21:34
PROVIDERS: ADMIT Internal Medicine; ATTEND Internal Medicine

== ENCOUNTER 2020-10-27 20:27 | Observation (INO) ==
[2020-10-27] MEDS ORDERED: *HR* HYDROcodone/Acet 5/325 mg TABLET PO ONE (20:38)
[2020-10-27 23:45] LABS: Basophils % 0.3 %; Eosinophils # 0.1 K/mcL (0.0-0.6); Eosinophils % 1.3 %; Hematocrit 43.1 % (35.3-44.9); Hemoglobin 14.2 g/dL (11.5-15.4); Immature Granulocytes % 0.2 % (0-4); Lymphocytes # 1.9 K/mcL (0.6-4.6); Lymphocytes % 22.1 %; Mean Corpuscular HGB Conc 32.9 g/dL (31.6-35.5); Mean Corpuscular Volume 91.1 fL (83.0-100.0); Mean Platelet Volume 9.7 fL (9.4-12.4); Monocytes # 0.6 K/mcL (0.0-1.3); Monocytes % 7.1 %; Platelet Count 240 K/mcL (140-400); Red Blood Count 4.73 M/mcL (3.82-4.97); Red Cell Distribution Width 12.4 % (11.5-14.5); White Blood Count 8.7 K/mcL (4.3-11.1)
[2020-10-28 00:05] LABS: Alanine Aminotransferase 7 Units/L (7-52); Albumin 3.8 g/dL (3.5-5.7); Albumin/Globulin Ratio 1.5 (1.1-2.2); Alkaline Phosphatase 89 Units/L (34-104); Aspartate Amino Transferase 12 Units/L (13-39); BUN/Creatinine Ratio 21 (6-26); Bilirubin,Total 0.4 mg/dL (0.3-1.0); Blood Urea Nitrogen 19 mg/dL (8-23); Calcium 8.7 mg/dL (8.6-10.3); Carbon Dioxide 28 mEq/L (23-29); Chloride 102 mEq/L (98-107); Globulin 2.6 g/dL (2.4-3.5); Glucose 281 mg/dL (70-105); Osmolality,Calculated 296 (280-300); Sodium 137 mEq/L (136-145); Total Protein 6.4 g/dL (6.4-8.9); eGFR For African Americans > 60 (> 60); eGFR For Non-African Americans > 60 (> 60)
[2020-10-28] MEDS ORDERED: Ondansetron ODT 4 MG TAB.RAPDIS SL PRN (00:24)
[2020-10-28] MEDS ORDERED: Naloxone 0.4 MG/ML INJ IVP PRN (00:24)
[2020-10-28] MEDS ORDERED: D5% in Water 1,000 ML IVC PRN (00:28)
[2020-10-28] MEDS ORDERED: *HR* Dextrose 50 % in Water (Vial) 50 ML VIAL IVP PRN (00:28)
[2020-10-28] MEDS ORDERED: Dextrose Gel 15 GM/37.5 ML TUBE PO PRN ×2 (00:28)
[2020-10-28] MEDS: Insulin LISPRO 300 UNITS/3 ML VIAL SUBQ SCH ×5 (01:36→21:30)
[2020-10-28] MEDS: Acetaminophen 325 MG TABLET PO PRN ×2 (04:36→21:26)
[2020-10-28] MEDS: *HR* Enoxaparin 40 MG/0.4 ML SYRINGE SQ SCH (04:36)
[2020-10-28 06:37] LABS: Basophils % 0.4 %; Eosinophils # 0.2 K/mcL (0.0-0.6); Eosinophils % 2.3 %; Hematocrit 42.1 % (35.3-44.9); Hemoglobin 13.5 g/dL (11.5-15.4); Immature Granulocytes % 0.1 % (0-4); Lymphocytes # 2.5 K/mcL (0.6-4.6); Lymphocytes % 35.6 %; Mean Corpuscular HGB Conc 32.1 g/dL (31.6-35.5); Mean Corpuscular Hemoglobin 28.9 pg (28.0-33.3); Mean Corpuscular Volume 90.1 fL (83.0-100.0); Mean Platelet Volume 9.9 fL (9.4-12.4); Monocytes # 0.6 K/mcL (0.0-1.3); Monocytes % 9.1 %; Neutrophils # 3.7 K/mcL (1.6-8.9); Platelet Count 229 K/mcL (140-400); Red Blood Count 4.67 M/mcL (3.82-4.97); Red Cell Distribution Width 12.7 % (11.5-14.5); Segmented Neutrophils % 52.5 %
[2020-10-28 06:41] LABS: INR 1.1; Prothrombin Time 12.2 Seconds (9.4-12.1)
[2020-10-28 07:00] LABS: BUN/Creatinine Ratio 27 (6-26); Blood Urea Nitrogen 17 mg/dL (8-23); Calcium 8.6 mg/dL (8.6-10.3); Carbon Dioxide 25 mEq/L (23-29); Chloride 106 mEq/L (98-107); Glucose 188 mg/dL (70-105); Osmolality,Calculated 293 (280-300); Phosphorous 2.6 mg/dL (2.7-4.5); Potassium 3.4 mEq/L (3.5-5.1); Sodium 138 mEq/L (136-145); eGFR For African Americans > 60 (> 60); eGFR For Non-African Americans > 60 (> 60)
[2020-10-28 07:11] LABS: Thyroid Stimulating Hormone 3.003 mcIU/mL (0.340-5.600)
[2020-10-28] MEDS: lisinopriL 20 MG TABLET PO SCH (09:16)
[2020-10-28] MEDS: Gabapentin 400 MG CAPSULE PO SCH ×4 (09:17→21:26)
[2020-10-28] MEDS: lamoTRIgine 100 MG TABLET PO SCH (09:17)
[2020-10-28] MEDS: Furosemide 20 MG TABLET PO SCH (09:17)
[2020-10-28] MEDS: Latanoprost 2.5 ML BOTTLE BOTH EYES SCH ×2 (09:20→22:55)
[2020-10-28] MEDS: Insulin DETEMIR 100 UNIT/ML X5UNITS SUBQ SCH ×2 (09:21→21:27)
[2020-10-28 09:23] LABS: Folate 9.6 ng/mL (3.0-16.0)
[2020-10-28] MEDS: BETAXOLOL HCL OP SCH ×2 (09:25→22:54)
[2020-10-28] MEDS: Melatonin 3 MG TABLET PO SCH (21:27)
[2020-10-29 04:16] LABS: BUN/Creatinine Ratio 27 (6-26); Blood Urea Nitrogen 17 mg/dL (8-23); Calcium 8.8 mg/dL (8.6-10.3); Carbon Dioxide 26 mEq/L (23-29); Chloride 105 mEq/L (98-107); Glucose 164 mg/dL (70-105); Osmolality,Calculated 289 (280-300); Potassium 3.8 mEq/L (3.5-5.1); Sodium 137 mEq/L (136-145); eGFR For African Americans > 60 (> 60); eGFR For Non-African Americans > 60 (> 60)
[2020-10-29] MEDS: *HR* Enoxaparin 40 MG/0.4 ML SYRINGE SQ SCH (06:00)
[2020-10-29] MEDS: Gabapentin 400 MG CAPSULE PO SCH ×4 (09:28→22:28)
[2020-10-29] MEDS: Acetaminophen 325 MG TABLET PO PRN (09:28)
[2020-10-29] MEDS: lisinopriL 20 MG TABLET PO SCH (09:29)
[2020-10-29] MEDS: lamoTRIgine 100 MG TABLET PO SCH (09:29)
[2020-10-29] MEDS: Cholecalciferol (D-3) 1,000 UNIT (25MCG) TABLET PO SCH (09:29)
[2020-10-29] MEDS: Insulin DETEMIR 100 UNIT/ML X5UNITS SUBQ SCH ×2 (09:30→22:31)
[2020-10-29] MEDS: Latanoprost 2.5 ML BOTTLE BOTH EYES SCH ×2 (09:30→23:40)
[2020-10-29] MEDS: Furosemide 20 MG TABLET PO SCH (09:30)
[2020-10-29] MEDS: Insulin LISPRO 300 UNITS/3 ML VIAL SUBQ SCH ×4 (09:31→22:29)
[2020-10-29] MEDS: BETAXOLOL HCL OP SCH ×2 (09:31→23:40)
[2020-10-29] MEDS: Melatonin 3 MG TABLET PO SCH (22:28)
[2020-10-30] MEDS: *HR* Enoxaparin 40 MG/0.4 ML SYRINGE SQ SCH (06:00)
[2020-10-30] MEDS: Latanoprost 2.5 ML BOTTLE BOTH EYES SCH ×2 (08:47→21:47)
[2020-10-30] MEDS: Insulin LISPRO 300 UNITS/3 ML VIAL SUBQ SCH ×4 (08:47→21:47)
[2020-10-30] MEDS: Cholecalciferol (D-3) 1,000 UNIT (25MCG) TABLET PO SCH (08:49)
[2020-10-30] MEDS: lisinopriL 20 MG TABLET PO SCH (08:49)
[2020-10-30] MEDS: Furosemide 20 MG TABLET PO SCH (08:49)
[2020-10-30] MEDS: Gabapentin 400 MG CAPSULE PO SCH ×4 (08:50→21:36)
[2020-10-30] MEDS: BETAXOLOL HCL OP SCH ×2 (08:50→21:47)
[2020-10-30] MEDS: lamoTRIgine 100 MG TABLET PO SCH (08:50)
[2020-10-30] MEDS: Insulin DETEMIR 100 UNIT/ML X5UNITS SUBQ SCH ×2 (08:57→21:42)
[2020-10-30 15:05] VITALS: BP 114/65
[2020-10-30] MEDS: Melatonin 3 MG TABLET PO SCH (21:36)
== END 2020-10-30 22:30 ==
LOC: 3BNU 20:27 → EMEROOARM 20:27 → 3BNU 10-28 00:53
PROVIDERS: ADMIT Internal Medicine; ATTEND Internal Medicine